=== PATIENT | female | born 1950 | race Caucasian/White ===

== ENCOUNTER 2020-08-13 08:21 | Inpatient (IN) ==
--- OUTSIDE RECORDS SUMMARY | 2020-08-13 08:24 | External Medical Summary | Continuity of Care Document ---
:1950 Author Name Maurilio Chauhan, Provider Address Unavailable Unavailable , Care Team Providers Name Role Phone Jonah [email or web address] [email or web address] [email or web address], [email or web address] Unavailable Unavailable Problems Active medical history not documented Allergies and Adverse Reactions Allergy history not documented Medications Medications not documented Procedures Procedures not documented Immunizations Immunizations not documented Plan of Treatment Planned Observations Planned Goals not documented Results No Known Results Results not documented
[2020-08-13] MEDS ORDERED: MIDAZOLAM HCL 1 MG/ML 2ML VIAL ONE ×3 (08:58→11:40)
[2020-08-13] MEDS ORDERED: fentaNYL citrate 100 MCG/2 ML VIAL ONE (08:58)
[2020-08-13] MEDS ORDERED: HEPARIN (PORCINE) 1000 UNIT/ML 10 ML (CATH LAB USE ONLY) ONE (08:58)
[2020-08-13] MEDS ORDERED: NITROGLYCERIN/D5W 100MCG/ML 20ML SYR ONE (08:58)
[2020-08-13] MEDS ORDERED: niCARdipine HCL INJ 2.5 MG/ML 10 ML AMP ONE (08:58)
--- NOTE | 2020-08-13 09:04 | History & Physical Bridge Note ---
Date of Service August 13, 2020 History & Physical Bridge Note I have examined the patient, reviewed the History & Physical and in the interval since the performance of the History & Physical I have noted the following changes of clinical significance: no changes noted
--- NOTE | 2020-08-13 09:17 | Pre Anesthesia Assessment ---
Date of Service August 13, 2020 Pre Sedation Assessment Vital Signs Temp Pulse Resp BP Pulse Ox 08/13/20 08:30 36.3 C L 58 L 18 186/96 H 98 Cardiovascular RRR, no murmur, no edema Respiratory normal respiratory effort, lungs clear to auscultation Pre-Sedation Airway Assessment Smoking Status: Former smoker Hx Sleep Apnea: No Short, Thick Neck: No Thyromental Distance: > or= 3.5 Finger Breadths Oral Cavity: + WNL Mallampati Class: II ASA: ASA2 NPO Status Date of Last Intake of Fluids: 08/13/20 Time of Last Intake of Fluids: 05:00 Date of Last Intake of Solid Food: 08/12/20 Time of Last Intake of Solid Foods: 22:00 Procedure Planning Contraindications for Sedation: none Current Medications Reviewed: Yes Notes The planned sedation has been discussed with the patient. Informed Consent was obtained. I have identified the patient, determined the appropriateness of sedation and have assessed the patient immediately prior to the procedure. All medicine(s) and interventions are by my order.
--- NOTE | 2020-08-13 10:13 | Post Anesthesia Assessment ---
Date of Service August 13, 2020 Post Sedation Assessment Vital Signs Temp Pulse Resp BP Pulse Ox 08/13/20 08:30 36.3 C L 58 L 18 186/96 H 98 Recovery Score Activity: Moves 4 extremities Respiration: Deep Breath/Cough Circulation: +/-20% PreAnes Value Consciousness: Fully Awake Oxygen Saturation: > 92% On Room Air Discharge Sedation Level of Care: Phase I Post Sedation Plan On clinical assessment, the patient appears to have tolerated the sedation without complications. Patient is recovering as anticipated. Patient will continue to be monitored by nursing and may be discharged when sedation discharge criteria are met per below protocol. Upon Completions of procedure up to 15 minutes continue every 5 minute vital signs and the P.A.R. score; then discharge to a Phase I or Fast Track to Phase II per the following guidelines: * Discharge Patient to appropriate Phase II area if PAR is 8 or greater or return to pre- procedure baseline. The post - procedure orders will be as directed. * If PAR score is less than 8 or not return to pre-procedure baseline then patient will follow Phase I monitoring till PAR is reached for Phase II. The Phase I may be done in procedure room or may call to secure a Phase I area. * If naloxone or flumazenil are used for reversal, hold in Phase I for continued monitoring from when last reversal dose was given for a minimum of 60 minutes or longer pending the nurse and/or physician discretion of patient condition before discharge to Phase II. Please call the Sedation Physician to re-evaluate and complete post-note for discharge to Phase II area. Do NOT discharge from procedure sedation or Phase 1 until post- sedation evaluation note is complete by procedure /sedation MD Sedation Discharge Instructions to be given to the patient at discharge to home.
--- NOTE | 2020-08-13 10:18 | Cardiac Catheterization ---
Cardiac Cath Procedure Full Procedure Date August 13, 2020 Pre-Procedure Diagnosis Pre-Procedure Diagnosis: Angina and Positive Stress Test AUC Score AUC Score: 8 Post-Procedure Diagnosis Post-Procedure Diagnosis: Severe CAD and Elevated Intracardiac Pressures Procedure(s) Performed Procedure(s) Performed: Coronary Angiography and Left Heart Cath Extruder Operator Horizontal Alex Tolentino DO Rescue Worker(s) Elza RN Estimated Blood Loss Estimated Blood Loss: 5cc Medication(s) Medication(s): Fentanyl, Heparin, Lidocaine 1%, Nicardipine, Nitroglycerin and Versed Summary of Findings Severe multivessel CAD: 80% mid LAD (Bifurcation lesion) 90% mid Lcx 80% proximal RCA 70-80% diffuse RPDA Hemodynamics Rest Ao:: 173/83/124 Final Ao: 191/85/129 LV: 193/9/26 Recommendations Recommendations: PCI without planned CABG Specimens Specimens: None Radiation Exposure (mGy) 276 Contrast (mls) 50 Fluids (cc crystalloids) Fluids (cc crystalloids): 100 nss Drains Drains: N/A Anesthesia Moderate sedation. Start 0938. End 1015. Sedation monitor: Ger ALFARO. Procedural Complication(s) None Disposition Patient remained in Hot Stick Worker for PCI I attest to the content of the Intraoperative Record and any orders documented therein. Any exceptions are noted below. ACC Data: Hot Stick Worker Cardiac Status Clinical evaluation leading to the procedure CAD Presenation: Positive Stress Test and Unstable angina Anginal Classification: CCS III Heart Failure: No Stress Echocardiogram: Yes - Positive and Risk/Extent of Ischemia (High) Coronary Anatomy Dominant: Right Left Main (% Stenosis): Normal LAD (% Stenosis): Proximal (30%) and Mid (80% bifurcation lesion) D1 (% Stenosis): Ostial (20%) and Proximal (20%) D2 (% Stenosis): Ostial (80% bifurcation lesion) Circumflex (% Stenosis): Proximal (20%) and Mid (90%) OM1 (% Stenosis): Mid (30%) and Distal (30%) L PL1 (% Stenosis): Mid (10%) RCA (% Stenosis): Proximal (80%), Mid (90%) and Distal (20-30%) R PDA (% Stenosis): Proximal (80%) and Mid (80%) R PL1 (% Stenosis): Mid (10%, small vessel) AM (% Stenosis): Ostial (80%) Ramus (% Stenosis): Proximal (60%) and Mid (60%) Diagnostic Physicians Name: Alex Tolentino DO Status: Elective Closure Device Percutaneous Entry Location: Radial Recommendations: PCI without planned CABG Intraprocedure Events Significant Disection: No Perforation: No
[2020-08-13] MEDS ORDERED: PRASugrel TAB 10 MG TAB PO ONE (11:59)
--- NOTE | 2020-08-13 12:30 | Post Anesthesia Assessment ---
Date of Service August 13, 2020 Post Sedation Assessment Vital Signs Temp Pulse Resp BP Pulse Ox 08/13/20 12:20 58 L 18 153/88 H 96 08/13/20 12:05 60 18 154/95 H 96 08/13/20 08:30 97.3 F L 58 L 18 186/96 H 98 Recovery Score Activity: Moves 4 extremities Respiration: Deep Breath/Cough Circulation: +/-20% PreAnes Value Consciousness: Fully Awake Oxygen Saturation: > 92% On Room Air Post Anesthesia Score: 10 Discharge Sedation Level of Care: Fast Track Phase II Post Sedation Plan On clinical assessment, the patient appears to have tolerated the sedation without complications. Patient is recovering as anticipated. Patient will continue to be monitored by nursing and may be discharged when sedation discharge criteria are met per below protocol. Upon Completions of procedure up to 15 minutes continue every 5 minute vital signs and the P.A.R. score; then discharge to a Phase I or Fast Track to Phase II per the following guidelines: * Discharge Patient to appropriate Phase II area if PAR is 8 or greater or return to pre- procedure baseline. The post - procedure orders will be as directed. * If PAR score is less than 8 or not return to pre-procedure baseline then patient will follow Phase I monitoring till PAR is reached for Phase II. The Phase I may be done in procedure room or may call to secure a Phase I area. * If naloxone or flumazenil are used for reversal, hold in Phase I for continued monitoring from when last reversal dose was given for a minimum of 60 minutes or longer pending the nurse and/or physician discretion of patient condition before discharge to Phase II. Please call the Sedation Physician to re-evaluate and complete post-note for discharge to Phase II area. Do NOT discharge from procedure sedation or Phase 1 until post- sedation evaluation note is complete by procedure /sedation MD Sedation Discharge Instructions to be given to the patient at discharge to home.
[2020-08-13] MEDS ORDERED: ACETAMINOPHEN 325 MG TAB PO PRN (12:43)
[2020-08-13] MEDS ORDERED: NITROGLYCERIN SL 0.4 MG/TAB TAB SL PRN (12:43)
[2020-08-13] MEDS ORDERED: MoRPHine SULFATE 2 MG/ML CARP IV PRN (12:43)
--- NOTE | 2020-08-13 12:43 | Cardiac Catheterization ---
[facility] Data: Contract Specialist Cardiac Status Clinical evaluation leading to the procedure CAD Presenation: Non STEMI Anginal Classification: CCS III Heart Failure: No Cardiogenic Shock within 24 Hours: No Cardiac Arrest within 24 Hours: No Imaging Studies Past 6 Months: Yes Stress Studies Past 6 Months: No Diagnostic Physicians Name: Zac Ramos MD Status: Elective Closure Device Percutaneous Entry Location: Radial Closure Device: Radial Band Recommendations: PCI without planned CABG PCI Indication: + Stress Test and Angina despite med therapy Lesion Segment Name: mid RCA Culprit Artery: Yes Stenosis Prior to Rx (%): 90 Chronic Total Occlusion: No IVUS: Yes FFR: No Pre-Procedure ANAMIKA Flow: 3 Previously Treated Lesion: No Lesion Complexity: Non-High/Non-C Lesion Length (mm): 40 Thrombus Present: No Bifurcation Lesion: No Guidewire Across Lesion: Stenosis Post-Procedure (%): 0 Post-Procedure ANAMIKA Flow: 3 Devices(s) Deployed: Yes Yes Intraprocedure Events Significant Disection: Yes (mid RCA -- stented) Perforation: No Cardiac Cath Procedure Full Procedure Date August 13, 2020 Pre-Procedure Diagnosis Pre-Procedure Diagnosis: Angina and Positive Stress Test AUC Score AUC Score: 7 Post-Procedure Diagnosis Post-Procedure Diagnosis: Severe CAD and Successful PCI Procedure(s) Performed Procedure(s) Performed: Coronary Angiography, Drug Eluting Stent and IVUS Cleaning And Maintenance Worker Zac Ramos MD Inspector Assembly(s) Elza ALFARO Estimated Blood Loss Estimated Blood Loss: 20 Medication(s) Medication(s): Fentanyl, Heparin, Lidocaine 1%, Nicardipine, Nitroglycerin and Versed Medication(s): prasugrel Summary of Findings Indication: Angina, abnormal stress test Access: 6 Fr right radial artery Catheters: JR4 (5 Fr) guide Findings: For full details of patient's coronary angiography please see cath report dictated by Dr. Tolentino. Briefly, patient found to have multi-vessel disease: 80% mid LAD (Bifurcation lesion) 90% mid Lcx 80% proximal RCA 70-80% diffuse RPDA Decision to proceed with PCI of RCA today. Likely staged PCI of LAD, circumflex later date. -- PCI -- Antithrombotic therapy: Heparin, prasugrel Procedure: RCA cannulated with 5 Fr JR4 guide Patent Drafter 50 wire passed across lesion into distal vessel Mid RCA lesion predilated with 2.0 compliant balloon Dilated lesion stented with 2.5 x 30 mm Nitin drug-eluting stent Right PDA lesion dilated with 2.0 balloon PDA stented with 2.25 x 15 mm [place] extending back into distal RCA across takeoff with right PLB Post stent deployment noted to have flow-limiting dissection in mid RCA downstream from initial stent Initial stent, mid RCA dilated with 2.5 and 2.75 NC balloons Additional stent (2.25 x 30 mm Nitin) placed to mid RCA overlapping with distal aspect of initial stent IVUS used to assess stents, proximal RCA. Pullback revealed well apposed, mildly underexpanded stents in mid RCA with minimal proximal RCA disease. Mid RCA stents post-dilated again with 2.75 noncompliant balloon Ostium of right PLB pinched with sluggish flow. PLB wired through stent struts with new pilot control operator 50. Ostium/proximal right PLB dilated through stent struts with 1.5 and 2.0 balloon IC vasodilators administered for spasm Post dilation right PLB expanded but with residual dissection and ANAMIKA II flow RCA into PDA with ANAMIKA-3 flow, stents well expanded. Arterial Closure: TR band Summary: 1. Severe multivessel coronary artery disease 2. Successful PCI of mid RCA with 2 overlapping drug-eluting stents (2.5 x 38, 2.25 x 30 Nitin; postdilated with 2.75 NC). 3. Successful PCI of proximal right PDA with 2.25 x 15 mm Nitin WEI. PTCA to jailed right PLB ostium through stent struts with 2.0 balloon Recommendations: To PCU for continued monitoring Loaded with prasugrel 60 mg in Contract Specialist Continue dual-antiplatelet therapy for at least 1 year Continue statin, and ASCVD risk factor modification Consult cardiac Rehab Plan for staged PCI of LAD, circumflex at a later date. Hemodynamics Rest Ao:: 196/89/131 Final Ao: 160/78/115 LV: -- Recommendations Recommendations: PCI without planned CABG Specimens Specimens: None Radiation Exposure (mGy) 1800 Contrast (mls) 170 Fluids (cc crystalloids) Fluids (cc crystalloids): 350 Drains Drains: none Anesthesia moderate Procedural Complication(s) None Disposition PCU I attest to the content of the Intraoperative Record and any orders documented therein. Any exceptions are noted below. Instacart Card Cath Procedure Codes Therapeutic Services & Ancillary Proc Procedure 1: Cardiovascular Tx and Anc Procedures: 77218 IV Ultrasound (Coronary or Graft) Moderate Sedation Procedure 1: Sedation/Anesthesia: 35218 Mod Sedation by the same physician; Ea [id number] Minutes Stenting Procedure 1: Cardiovascular Stent Procedures: 23502 Perc transcatheter placement of intracoronary stent(s), with ang PG Care Time/CCT Total # of Minutes Spent Total Time Spent with Patient: Total time spent is greater than 50% in coordination of care (as documented) at patient's floor/unit and/or counseling patient:
[2020-08-13] MEDS ORDERED: SODIUM CHLORIDE 0.9% 1000ML 1,000 ML IV SCH (12:45)
[2020-08-13] MEDS ORDERED: LORazepam 0.5 MG TAB PO PRN (12:51)
[2020-08-13] MEDS ORDERED: INFLUENZA VIRUS QUAD VACCINE 0.5 ML SYR IM ONE (14:00)
[2020-08-13] MEDS ORDERED: INFLUENZA ADMINISTRATION CHARGE ONE (14:00)
[2020-08-13] MEDS ORDERED: Nursing to Pharmacy Communication SCH ×2 (14:30→15:00)
[2020-08-13] MEDS ORDERED: hydroCHLOROthiazide 25 MG TAB PO ONE (14:45)
[2020-08-13] MEDS ORDERED: amLODIPine BESYLATE 5 MG TAB PO ONE (15:00)
[2020-08-13] MEDS ORDERED: NITROGLYCERIN 2% OINTMENT 30GM TUBE EXT SCH (15:00)
[2020-08-13] MEDS ORDERED: MoRPHine SULFATE 2 MG/ML CARP IV STA (15:40)
--- NOTE | 2020-08-13 15:45 | Communication Note ---
Date of Service: August 13, 2020 Patient assessed in coverage of Dr Tolentino. Pt describes headache, BP elevated to 208/101 at 14:29. Thus far has received 0.5 mg of ativan (on at home) , amlodipine 2.5 mg x 1, and nitropaste. She took her home BP medication this am prior to leaving for hospital. She described pain in her neck from her posture / uncomfortable bed. At time of my assessment BP =180/ 102. Awake and oriented. Radial artery site stable. Plan: Given headache prior to treatment with nitropaste, concerned this will make symptoms worse and will therefore stop this. Will administer morphine 1 mg IV x 1 dose.
[2020-08-13] MEDS: ONDANSETRON INJ 2 MG/ML 2 ML VIAL IV PRN ×2 (15:52→19:58)
[2020-08-13] MEDS ORDERED: STAT IV Infusion **Titration per Protocol STA ×2 (16:16→16:49)
--- NOTE | 2020-08-13 16:26 | Cardiology Progress Note ---
Date of Service August 13, 2020 Assessment & Plan (1) Hypertensive urgency: BPs remain high 197/109 after morphine and Zofran. Heart rate is 58, SB limiting use of clonidine, and beta blockers. Hydralazine not ideal given CAD. Will transfer to first floor ICU and start nicardipine infusion. Updated Dr Tolentino who is station repairer for [facility]. Updated Dr Chatman of Pathology Secretary/Transcriptionist service. (2) S/P right coronary artery (RCA) stent placement: Admission and Anticipated Discharge Date Admission Date: August 13, 2020 Subjective Patient remains hypertensive. Has ongoing headache despite removing nitropaste. Now with reported mild visual change. Physical Exam Physical Exam: Temp Pulse Resp BP Pulse Ox 36.6 C 57 L 16 197/109 H 197 H 08/13/20 15:32 08/13/20 16:07 08/13/20 16:07 08/13/20 16:07 08/13/20 16:07 Constitutional: ill in appearance, alert Respiratory: normal respiratory effort, lungs clear to auscultation Cardiovascular: RRR, no murmur, no edema Gastrointestinal (Abdomen): normal bowel sounds, soft, nontender, no hepatosplenomegaly Neurologic: no focal deficits, fluent speech Results & Data ([facility]) Vital Signs (Past 12 Hours) Vital Signs Temp Pulse Pulse Resp BP Pulse Ox 08/13/20 16:07 57 L 16 197/109 H 197 H 08/13/20 15:59 60 14 204/113 H 98 08/13/20 15:32 36.6 C 59 L 18 180/102 H 98 08/13/20 15:02 56 L 08/13/20 14:58 36.9 C 56 L 18 173/104 H 100 08/13/20 14:29 37 C 55 L 18 208/101 H 100 08/13/20 14:10 36.6 C 56 L 18 203/119 H 99 08/13/20 13:28 36.9 C 58 L 18 187/98 H 99 08/13/20 13:13 36.6 C 60 18 186/96 H 99 08/13/20 12:59 36.5 C 49 L 18 204/106 H 100 08/13/20 12:45 36.5 C 51 L 18 173/96 H 97 08/13/20 12:30 36.5 C 52 L 48 L 18 160/97 H 94 08/13/20 12:20 58 L 18 153/88 H 96 08/13/20 12:05 60 18 154/95 H 96 08/13/20 08:30 36.3 C L 58 L 18 186/96 H 98
[2020-08-13] MEDS ORDERED: niCARdipine 25 MG in SODIUM CHLORIDE 0.9% 240 ML IV SCH (17:00)
[2020-08-13] MEDS: niCARdipine 25 MG in SODIUM CHLORIDE 0.9% 240 ML IV SCH (17:49)
--- NOTE | 2020-08-13 17:53 | Critical Care Consultation ---
Date of Consultation August 13, 2020 Assessment & Plan (1) Hypertensive emergency: EKG 08/13/2020: Mild ST elevation appreciated in leads II, III and aVF, ST depression with T wave inversions in the anterolateral leads especially V3-V4 Chest x-ray 08/13/2020: Portable film, good inspiratory effort, bilateral costophrenic and cardiophrenic ulcer clean, no clinically appreciated. --Hypertensive emergency Patient with systolic blood pressure greater than 220 on the floor with headache and blurry vision She did get all the blood pressure medication Decrease MAP by 25% in the next 24 hours, goal systolic blood pressure will be 160 in the next 24 hours. Nicardipine drip if need be to keep the systolic blood pressure around 160. The patient gets hypotensive give bolus fluid. --Coronary artery disease, multivessel Monitor troponin Serial EKGs Cardiology on board Continue with aspirin, prasugrel, ARB and statin --History of anxiety --Prophylaxis VTE: IPC's GI: Protonix Lines: Peripheral Diet: Cardiac Plan: Monitor blood pressure. CT of the head is negative for any acute stroke. Trend troponins and EKG I have personally spent 41 minutes of critical care time in the direct management of this patient. This is a life/limb threatening event. This includes time spent evaluating patient, direct bedside care, chart review, placing orders, interpretation of diagnostic studies, discussion with consultants, patient, and family members, as well as other required patient management activities. This time is exclusive of all separately billable procedures, and teaching time and separate from and in addition to any other critical care service time. Please note the above document was generated using voice recognition software. It may contain grammatical, syntax or spelling errors. (2) S/P right coronary artery (RCA) stent placement: History of Present Illness Attending Physician: Alex Tolentino DO History of Present Illness 69-year-old female past medical history of hypertension, anxiety, dyslipidemia came to [facility] for same-day cardiac cath found to have significant multivessel disease RCA was stented today. Plan was to have stepwise stenting of LAD later on. On the floor patient was found to have blood pressure in the 220s complaining of headache nausea and vomiting. Patient did get blood pressure medications on the floor with her blood pressures continue to stay high. Patient was sent to ICU to start nicardipine drip. At the time of examination patient blood pressure was 140s. She was a started on nicardipine drip. While I was taking history from the patient her blood pressure went to 126 systolic. I asked him to stop the nicardipine drip. Patient is complaining of retrosternal chest pain which is pleuritic in nature. Denies any significant shortness of breath. Does complain of nausea. She vomited once nonbilious nonbloody. Denies any dizziness, headache has improved compared to when she was on the floor. Still complains of mild blurry vision. Social history: Used to smoke cigarettes currently smoking cigars. Allergies Allergy/AdvReac Type Severity Reaction Status Date / Time No Known Allergies Allergy Unverified 03/14/18 18:08 Home Medications Medication Instructions Recorded Confirmed Type Hctz/Losartan (Hyzaar 12.5MG/50MG) 1 tab PO DAILY #0 tab 03/14/18 08/13/20 History Lorazepam 0.5 mg PO DAILY #0 03/14/18 08/13/20 History Metoprolol Succinate (Metoprolol 100 mg PO DAILY #0 03/14/18 08/13/20 History Succinate ER) citalopram [Celexa] 20 mg PO DAILY 08/13/20 08/13/20 History rosuvastatin [Crestor] 20 mg PO DAILY 08/13/20 08/13/20 History Patient History Social History Smoking Status: Former smoker Hx Alcohol Use: Yes Hx Substance Use: Yes Preferred Language: German Current Living Situation: Family Feels Safe at Home: Yes Safety Concerns: Feels Safe At This Time Assistive Devices: None Review of Systems Review of Systems: All systems reviewed & are unremarkable except as noted in HPI & below Physical Exam Physical Exam: Constitutional: No acute distress HEENT: EOMI, PERRLA Respiratory system: Decreased air entry bilaterally, mild crackles bilateral lower lobes, no wheeze, no rhonchi CVS: S1-S2 positive, no murmurs or gallops Abdomen: Soft, nontender, nondistended, positive bowel sounds x4 Extremities: +2 pulses bilaterally radialis/ dorsalis pedis, no cyanosis, no edema Neuro: Awake alert oriented x3 Psych: Normal mood and affect G/U: No Bell Skin: no rashes, warm and dry Lymphatic: no cervical or axillary lymphadenopathy Results & Data Results & Data ([facility]) Vital Signs (Past 12 Hours) Vital Signs Temp Pulse Pulse Resp BP Pulse Ox 08/13/20 16:35 36.6 C 55 L 16 185/109 H 98 08/13/20 16:07 57 L 16 197/109 H 197 H 08/13/20 15:59 60 14 204/113 H 98 08/13/20 15:32 36.6 C 59 L 18 180/102 H 98 08/13/20 15:02 56 L 08/13/20 14:58 36.9 C 56 L 18 173/104 H 100 08/13/20 14:29 37 C 55 L 18 208/101 H 100 08/13/20 14:10 36.6 C 56 L 18 203/119 H 99 08/13/20 13:28 36.9 C 58 L 18 187/98 H 99 08/13/20 13:13 36.6 C 60 18 186/96 H 99 08/13/20 12:59 36.5 C 49 L 18 204/106 H 100 08/13/20 12:45 36.5 C 51 L 18 173/96 H 97 08/13/20 12:30 36.5 C 52 L 48 L 18 160/97 H 94 08/13/20 12:20 58 L 18 153/88 H 96 08/13/20 12:05 60 18 154/95 H 96 08/13/20 08:30 36.3 C L 58 L 18 186/96 H 98 08/13/20 19:24 Coding Level of Care Code Critical Care 1st 30-74 mins Diagnoses Hypertensive emergency I16.1 S/P right coronary artery (RCA) stent placement Z95.5 Time Spent (min) 41
--- NOTE | 2020-08-13 18:16 | Communication Note ---
Date of Service: August 13, 2020 Patient reassessed in ICU room 108. BP now 129/78. Comfortable. Headache and nausea resolved. Nicardipine held. Complaints of midline chest pain , mild radiating to back that she says has been present since labor relations manager. She did not report this to me earlier. EKG performed on arrival to ICU reveals SB with diffuse T wave inversions in inferior leads and leads V3-V6, overall EKG is similar compared to 08/05/20 with exception of mild J point elevation in lead III. Symptoms and EKG changes likely explained by pinched R PLB branch described on PCI report today. I believe if her RCA stents were down , she would have more severe EKG changes and more severe symptoms. Will check troponin now and in am. Check CT of brain given headache and transient visual changes. Stable to travel to [place] now that BP improved. Holding off on nitrates given prior headache.
--- NOTE | 2020-08-13 18:38 | CT Scan Report ---
CT SCAN OF THE BRAIN WITHOUT IV CONTRAST CLINICAL HISTORY: Headache. Hypertension. Status post cardiac catheterization. COMPARISON STUDY: No priors. TECHNIQUE: Unenhanced axial CT scan of the brain is performed from the vertex to the skull base. A do se lowering technique was utilized adhering to the principles of ALARA. CT DOSE: 537.48 mGy.cm FINDINGS: Brain parenchyma: There are age-related involutional changes noting mild subcortical and periventric ular microangiopathic change. There is no hemorrhage, mass effect, or evidence of acute territorial i schemia by CT criteria. Tam-white matter differentiation is preserved. No extra-axial fluid collecti on is seen. Ventricles, sulci, cisterns: Prominent secondary to involutional change. Intracranial vasculature: There is atherosclerotic calcification of the cavernous carotid and vertebr al arteries. Calvarium: Unremarkable. Sinuses and mastoids: A 3.5 cm retention cyst is noted in the right maxillary antrum. Air-fluid level s seen in the left maxillary antrum. Moderate mucosal thickening is seen within the ethmoid sinuses, left greater than right. Mild mucosal thickening is noted in the frontal and sphenoid sinuses. The ma stoid air cells are well pneumatized. Orbits: The bony orbits are grossly intact. There are bilateral ocular lens implants. IMPRESSION: 1. There is no hemorrhage, mass effect, or evidence of acute territorial ischemia by CT criteria. 2. Pansinus disease as above. ACT 112: Negative or not required by law. Electronically signed by: Avtar Negron M.D. 08/13/2020 6:37 PM
--- NOTE | 2020-08-13 18:53 | Communication Note ---
Date of Service: August 13, 2020 CT of brain without acute abnormality, sinus disease noted.
[2020-08-13 19:42] LABS: Basophils # (auto) 0.03 K/uL (0-0.2); Basophils % (auto) 0.2 %; Eosinophils # (auto) 0.08 K/uL (0-0.5); Eosinophils % (auto) 0.5 %; Hematocrit (blood only) 41.3 % (37-47); Hemoglobin 14.4 g/dL (12.0-16.0); Immature Granulocytes # (auto) 0.02 K/uL (0.00-0.02); Immature Granulocytes % (auto) 0.1 %; Lymphocytes # (auto) 1.89 K/uL (1.2-3.4); Lymphocytes % (auto) 10.9 %; Mean Corpuscular Hemoglobin 34.2 pg (25-34); Mean Corpuscular Hgb Conc 34.9 g/dL (32-36); Mean Corpuscular Volume 98.1 fL (80-100); Mean Platelet Volume 11.5 fL (7.4-10.4); Monocytes # (auto) 0.67 K/uL (0.11-0.59); Monocytes % (auto) 3.9 %; Neutrophils # (auto) 14.61 K/uL (1.4-6.5); Neutrophils % (auto) 84.4 %; Platelet Count 194 K/uL (130-400); RDW Coefficient of Variation 12.7 % (11.5-14.5); RDW Standard Deviation 45.1 fL (36.4-46.3); Red Blood Count 4.21 M/uL (4.2-5.4)
--- NOTE | 2020-08-13 19:45 | Communication Note ---
Date of Service: August 13, 2020 SBPs currently in the 90s. Troponin 1.5 ng/ml , which is not surprising given catheterization / PCI results with jailed PLB branch. Will repeat troponin with am lab , already ordered. Discussed with nursing, will continue to observe. Critical care input appreciated.
[2020-08-13] MEDS ORDERED: ONDANSETRON INJ 2 MG/ML 2 ML VIAL IV STA (19:53)
--- NOTE | 2020-08-13 19:55 | XRay Report ---
SINGLE VIEW CHEST CLINICAL HISTORY: Headache. Hypertension. Recent cardiac catheterization. FINDINGS: An AP, portable, upright chest radiograph is obtained. No prior studies are available for c omparison at the time of dictation. The heart is enlarged noting atherosclerotic calcification of th e thoracic aorta. The pulmonary vasculature is noncongested. The lungs and pleural spaces are clear. No pneumothorax is seen. The skeletal structures are osteopenic. The bony thorax is grossly intact. IMPRESSION: Cardiomegaly with no acute cardiopulmonary abnormality. ACT 112: Negative or not required by law. Electronically signed by: Avtar Negron M.D. 08/13/2020 7:53 PM
[2020-08-13 19:56] LABS: INR 1.1 (0.9-1.1); Prothrombin Time 11.8 Seconds (9.0-12.0)
[2020-08-13 20:01] LABS: Albumin Level 3.4 gm/dl (3.4-5.0); BUN Creatinine Ratio 18.1 (10-20); Bilirubin Direct 0.3 mg/dl (0-0.2); Calcium 8.4 mg/dl (8.5-10.1); Creatinine Clr Calc Pharmacy 40.2 ml/min; Est GFR (African American) 66.2; Est GFR (Non-African American) 57.2; Potassium 4.1 mmol/L (3.5-5.1)
[2020-08-13 20:10] LABS: Bilirubin,Total 0.6 mg/dl (0.2-1); Thyroid Stimulating Hormone 2.65 uIu/ml (0.300-4.500); Total Protein 6.7 gm/dl (6.4-8.2)
[2020-08-13] MEDS ORDERED: HEPARIN SODIUM/DEXTROSE 25,000 UNITS/500 ML BAG IV SCH (21:15)
--- NOTE | 2020-08-13 21:16 | Communication Note ---
Date of Service: August 13, 2020 Cased discussed with nursing over the phone. SBP 95, patient with nausea. Repeat EKG from 20:[address] is [address] improved [address] segments in the inferior leads compared to 17:39. Case discussed with Dr Ramos of interventional cardiology by phone. Jailed right PLB (posterolateral branch) and complex PCI could explain symptoms or patient may have occlusion of the small right posterior descending artery branch (PDA). If patient had acute thrombosis of the proximal or mid RCA stents would expect more significant EKG changes. We discussed proceeding with emergent cardiac catheterization or observation. At present, we have elected for ongoing observation. Add UF heparin. Discussed with patient's nurse. Dr Tolentino fabrication mig welder this evening. Will update him.
[2020-08-13] MEDS ORDERED: Heparin IV Standard *NO* Bolus IV SCH (21:30)
[2020-08-14] MEDS: niCARdipine 25 MG in SODIUM CHLORIDE 0.9% 240 ML IV SCH (01:14)
[2020-08-14 04:38] LABS: Basophils # (auto) 0.01 K/uL (0-0.2); Basophils % (auto) 0.1 %; Eosinophils # (auto) 0.01 K/uL (0-0.5); Eosinophils % (auto) 0.1 %; Hematocrit (blood only) 40.2 % (37-47); Hemoglobin 13.9 g/dL (12.0-16.0); Immature Granulocytes # (auto) 0.02 K/uL (0.00-0.02); Immature Granulocytes % (auto) 0.2 %; Lymphocytes % (auto) 10.6 %; Mean Corpuscular Hemoglobin 33.3 pg (25-34); Mean Corpuscular Hgb Conc 34.6 g/dL (32-36); Mean Corpuscular Volume 96.2 fL (80-100); Mean Platelet Volume 11.5 fL (7.4-10.4); Monocytes # (auto) 0.76 K/uL (0.11-0.59); Monocytes % (auto) 6.2 %; Neutrophils # (auto) 10.17 K/uL (1.4-6.5); Neutrophils % (auto) 82.8 %; Platelet Count 184 K/uL (130-400); RDW Coefficient of Variation 12.8 % (11.5-14.5); RDW Standard Deviation 44.9 fL (36.4-46.3); Red Blood Count 4.18 M/uL (4.2-5.4); White Blood Count 12.27 K/uL (4.8-10.8)
[2020-08-14 04:57] LABS: BUN Creatinine Ratio 20.1 (10-20); Calcium 8.2 mg/dl (8.5-10.1); Est GFR (African American) 57.8; Est GFR (Non-African American) 49.9; Magnesium 1.8 mg/dl (1.8-2.4); Partial Thromboplastin Ratio 3.3; Potassium 4.4 mmol/L (3.5-5.1)
[2020-08-14 05:11] LABS: Partial Thromboplastin Time 92.5 Seconds (21.0-31.0)
[2020-08-14 05:19] LABS: Troponin I 44.3 ng/ml (0-0.045)
[2020-08-14] MEDS: MAGNESIUM SULFATE / D5W 1 GM/100 ML BAG IV SCH ×2 (06:11→08:19)
[2020-08-14] MEDS ORDERED: SODIUM CHLORIDE 0.9% 1000ML 500 ML IV ONE (07:20)
--- NOTE | 2020-08-14 07:57 | Critical Care Progress Note ---
Date of Service August 14, 2020 Assessment & Plan (1) S/P right coronary artery (RCA) stent placement: Reason Critically Ill: 69 yo F PMHx HTN, HLD, anxiety, depression, unstable angina presented to hospital for catheterization following positive stress test outpatient. Was admitted to ICU for nifedipine gtt for hypertensive emergency. Neuro - Headache/Blurry Vision: - Experienced yesterday when BP >220, how resolved with normotension. - CT Head performed showing no hemorrhage, mass effect, or evidence of CVA. Depression/Anxiety: - Continue home sertraline daily, Ativan prn. Cardiac - Severe multivessel CAD: - Stress test on 08/11 showed inferior hypokinesis during stress suggestive of RCA distribution ischemia. - Yesterday had successful PCI of proximal and mid-RCA with WEI. - For staged PCI of LAD and LCx later this admission. - EKG 08/13/2020: Mild ST elevation appreciated in leads II, III and aVF, ST depression with T wave inversions in the anterolateral leads especially V3-V4. - Today with resolution of ST changes and T wave inversions in anterior leads. - Troponin trended up from 1.55 to 44.3 this AM but with decreased chest pain this AM. - Suspect elevated due to stent placement. Repeat troponin at noon. - Echo performed this AM, pending. - BP management outlined below. - DAPT for at least one year following PCI. - May benefit from increase in statin dosing. Have ordered lipid panel with noon lab draw. Hypertensive emergency: - History of HTN, at home on HCTZ/Losartan 12.5/50, Toprol XL 100 daily. - Post-catheterization yesterday with elevated BP to 220 systolic despite receiving several antihypertensives. - Transferred to ICU for nifedipine gtt, patient's BP decreased significantly by time of arrival to ICU to hypotension. - Nifedipine gtt never started, received 1L NSS bolus and BP has been normotensive overnight. - In hospital, continue HCTZ 25 daily, losartan 100mg daily, home dose Toprol XL. - May need tighter BP control in outpatient setting. Have also encouraged to quit smoking. Respiratory - - Patient without history of lung disease, however with extensive smoking history. - Encouraged smoking cessation especially in light of her severe multivessel CAD. GI - - NPO for pending catheterization. - Pantoprazole IV for GI ppx. RENAL/LYTES - - Mild hyponatremia and hypomagnesemia. - 500mL NSS bolus, Mg Sulfate 1g IV x1 given. - Mild elevation in creatinine from 1.0 -> 1.13; suspect due to contrast, light fluid bolus as above. - - No present concerns. ENDO - - No history of thyroid disease of DM2. - Hgb A1c ordered to be collected with noon lab draw. HEME - - Stable H&H. - Will monitor for any drops in the setting of Heparin gtt. ID - - No concerns for infection at this point. - Monitor fever curve. INTEGUMENTARY - - Catheterization site clean, dry, no hematoma. LINES/IV ACCESS - - PIVs intact. DVT PROPHYLAXIS - - Heparin gtt. Thank you for allowing us to be part of this patient's care. Suspect downgrade from ICU level of care later today. Please refer to Dr. Cahtman's documentation for any further recommendations. (2) Hypertensive emergency: (3) Anxiety: (4) Depression: Admission and Anticipated Discharge Date Admission Date: August 13, 2020 Supervising Physician Co-Signing Physician Notes Dr. Patel was the resident-physician during care of patient. I separately evaluated patient for leblanc portions of the history and the exam. I was present during the critical portion of medical decision making, and I discussed the case with the resident. I generally agree with the findings and plan except for any additions/exceptions noted. Patient seen and examined at bedside. No acute distress, no adverse events overnight. Patient states that she is feeling much better compared to yesterday when she came to the ICU. She did not need nicardipine drip at all overnight. She got couple doses of Zofran. She was started on heparin drip overnight by Dr. Ramos. Patient denies any chest pain today. No shortness of breath. No nausea at the time of examination. Urinating well. Blood pressure is fairly controlled. We will continue with home blood pressure medication. Discontinue nicardipine drip. Patient is found to have cardiac cath today again. EKG from today shows resolvent of the ST depression which she had on the lateral leads as well as mild ST elevation which she had on the 2 3 and aVF. Please note the above document was generated using voice recognition software. It may contain grammatical, syntax or spelling errors.Any formal questions or concerns about the content, text or information contained within the body of this dictation should be directly addressed to the provider for clarification. Subjective Patient without acute events overnight. BP has been normotensive, and patient has been without headache, dizziness, visual changes, shortness of breath, abdominal pain. Endorses that her chest feels "sore", but significantly improved from yesterday. No radiation of pain down the arm or up the jaw. Review of Systems Review of Systems: All systems reviewed & are unremarkable except as noted in HPI & below Constitutional: no fever, no chills and no malaise Respiratory: no cough and no dyspnea Cardiovascular: + chest pain (described as "soreness"); no palpitations and no edema Gastrointestinal: no abdominal pain, no constipation and no diarrhea/loose stools Genitourinary: no dysuria and no hematuria Physical Exam Physical Exam: Constitutional: No acute distress HEENT: EOMI, PERRLA Respiratory system: Decreased air entry bilaterally, mild crackles bilateral lower lobes, no wheeze, no rhonchi CVS: S1-S2 positive, no murmurs or gallops Abdomen: Soft, nontender, nondistended, positive bowel sounds x4 Extremities: +2 pulses bilaterally radialis/ dorsalis pedis, no cyanosis, no edema Neuro: Awake alert oriented x3 Psych: Normal mood and affect G/U: No Bell Skin: no rashes, warm and dry Lymphatic: no cervical or axillary lymphadenopathy Results & Data Results & Data ([facility]) Vital Signs (Past 12 Hours) Vital Signs Temp Pulse Resp BP Pulse Ox 08/14/20 06:04 59 L 22 136/84 98 08/14/20 06:00 58 L 20 97 08/14/20 05:36 60 17 97 08/14/20 05:05 60 22 98 08/14/20 05:04 58 L 6 L 116/74 99 08/14/20 05:00 59 L 17 97 08/14/20 04:34 61 22 106/65 98 08/14/20 04:04 65 17 97 08/14/20 04:00 36.4 C L 64 20 98 08/14/20 03:37 61 15 123/79 97 08/14/20 03:34 61 18 133/55 L 98 08/14/20 03:04 63 22 123/71 96 08/14/20 03:00 61 18 97 08/14/20 02:34 62 17 131/83 98 08/14/20 02:04 61 21 153/91 H 97 20 02:00 61 21 96 20 01:34 62 15 124/70 98 08/14/20 01:04 63 19 106/72 97 20 01:00 63 20 96 08/14/20 00:34 62 20 129/91 96 08/14/20 00:04 62 21 126/95 98 08/14/20 00:00 61 21 97 20 23:28 63 18 156/93 H 98 20 23:23 64 16 146/90 H 96 20 23:18 62 22 153/95 H 97 08/13/20 23:13 63 17 141/86 H 96 08/13/20 23:08 62 18 147/89 H 98 08/13/20 23:03 36.7 C 61 18 136/90 99 20 23:00 62 21 97 20 21:38 62 19 93/60 L 99 20 21:33 65 23 92/58 L 98 20 21:30 63 19 98 08/13/20 21:28 63 19 113/70 99 18/20 21:23 62 22 102/71 100 18/20 21:20 63 23 100 18/20 21:18 65 17 113/69 99 08/13/20 21:13 77 23 95 08/13/20 21:10 64 21 98 08/13/20 21:08 63 14 106/69 100 20 21:03 64 19 95/68 L 100 18/20 21:00 62 22 100 18/20 20:58 63 17 114/72 100 18/20 20:53 72 23 103/61 99 18/20 20:50 67 25 H 100 18/20 20:48 64 22 159/99 H 100 18/20 20:43 66 24 143/89 H 99 18/20 20:40 68 22 99 18/20 20:38 71 13 127/87 100 18/20 20:33 73 29 H 105/67 100 18/20 20:30 61 29 H 100 18/20 20:28 62 17 118/73 100 11/18/20 20:23 61 23 116/58 L 100 08/13/20 20:20 62 23 08/13/20 20:19 60 19 99 08/13/20 20:13 71 18 119/75 95 08/13/20 20:10 67 21 99 08/13/20 20:08 65 15 110/76 08/13/20 20:03 64 17 108/69 99 08/13/20 20:00 64 29 H 99 08/13/20 19:57 62 21 113/67 100 08/13/20 19:52 63 21 105/71 100 08/13/20 19:50 60 25 H 100 08/14/20 04:08 08/14/20 04:08 Resident Activity Tracking Resident Involvement: Resident Care Provided Care Provided: Adult Hospital Medicine (1) Depression Depression Type: unspecified Qualified Code(s): F32.9 - Major depressive disorder, single episode, unspecified
[2020-08-14] MEDS: LOSARTAN POTASSIUM 50 MG TAB PO SCH (08:19)
[2020-08-14] MEDS: ROSUVASTATIN CALCIUM 20 MG TAB PO SCH (08:20)
[2020-08-14] MEDS: CITALOPRAM 20 MG TAB PO SCH (08:20)
[2020-08-14] MEDS: ASPIRIN 81 MG ECTAB PO SCH (08:20)
[2020-08-14] MEDS: PRASugrel TAB 10 MG TAB PO SCH (08:21)
[2020-08-14] MEDS ORDERED: LOSARTAN POTASSIUM 50 MG TAB PO SCH (09:00)
[2020-08-14] MEDS ORDERED: hydroCHLOROthiazide 25 MG TAB PO SCH ×2 (09:00)
[2020-08-14] MEDS ORDERED: METOPROLOL SUCC 50MG EXT REL TAB PO SCH (09:00)
--- NOTE | 2020-08-14 10:21 | Cardiology Progress Note ---
Date of Service August 14, 2020 Assessment & Plan (1) Multi-vessel coronary artery stenosis: (2) Acute myocardial infarction: (3) S/P right coronary artery (RCA) stent placement: (4) Hypertension: Discussion/plan: EKG performed this morning 08/14/2020 revealed normal sinus rhythm at 62 bpm with T wave inversions in the inferior lateral leads. ST segment depression noted in the inferior and lateral leads on serial EKGs including her preprocedure baseline dating back to 08/05/2020 is improved. Troponin was 1.5 yesterday at 1855, and has risen to 44.3 NG per mL as of this morning at 4:08 AM. The patient had recent outpatient complaints of exertional angina, recent outpatient stress test was abnormal with exercise-induced inferior wall motion abnormality. She was referred for outpatient diagnostic cardiac catheterization performed yesterday 08/13/2020 which revealed multivessel disease including severe disease in the right coronary artery, LAD, and circumflex coronary artery. Options including coronary artery bypass grafting and multivessel PCI were considered, however given the small diameter of the distal right coronary artery/RPDA branch, it was felt that this would not be amenable to surgical revascularization, and decision was made to proceed with complex PCI of the right coronary artery with planned return for staged PCI of the remaining stenosis. The right coronary artery intervention was technically complex, and the right posterior lateral branch (PLB) most likely jailed by the proximal to mid right coronary artery stenting. This is felt to be the likely culprit for her post procedure event. Echocardiogram performed this morning reveals a small to moderate circumferential pericardial effusion, perhaps related to noted RCA dissection during the procedure, or a post procedure Andreina's syndrome. A subtle wall motion abnormality of the basal inferior wall is noted, otherwise moderate concentric left ventricular hypertrophy, with LVEF of 6065% noted on echo. No tamponade physiology noted. Continue medication therapy with aspirin, prasugrel, unfractionated heparin. Continue metoprolol succinate, losartan, rosuvastatin, Protonix. Patient received hydrochlorothiazide this morning, but this is going to be placed on hold with fever of titrating amlodipine for small vessel disease. Patient to be n.p.o. for now, will discuss case with interventional cardiology with regards to timing of staged PCI, at which time, the right coronary artery will also be revisualized. Updates discussed with patient's significant other, Manuel, by phone. Admission and Anticipated Discharge Date Admission Date: August 14, 2020 Subjective Patient seen in follow-up. Nauseousness has resolved. Blood pressure is controlled within the ideal range this morning. She is on an unfractionated heparin infusion. She notes very minimal residual chest discomfort, perhaps a 4/10 discomfort she states that she is overall very comfortable. Her mentation is appropriate. She is in good spirits. Review of Systems Review of Systems: All systems reviewed & are unremarkable except as noted in HPI & below Physical Exam Physical Exam: Temp Pulse Resp BP Pulse Ox 36.6 C 58 L 21 136/93 98 08/14/20 08:00 08/14/20 09:04 08/14/20 09:04 08/14/20 09:04 08/14/20 09:04 Constitutional: WD/WN, vitals as above Respiratory: normal respiratory effort, lungs clear to auscultation Cardiovascular: RRR, no murmur, no edema Gastrointestinal (Abdomen): normal bowel sounds, soft, nontender, no hepatosplenomegaly Neurologic: PERRL, EOMI, accommodation nl, no face palsy, no dysarthria Results & Data ([facility]) Vital Signs (Past 12 Hours) Vital Signs Temp Pulse Resp BP Pulse Ox 08/14/20 09:04 58 L 21 136/93 98 08/14/20 09:00 67 13 98 08/14/20 08:34 57 L 18 128/98 95 08/14/20 08:04 56 L 20 136/82 95 08/14/20 08:00 36.6 C 58 L 23 136/93 97 08/14/20 07:34 68 14 127/85 95 08/14/20 07:05 57 L 20 128/81 96 08/14/20 07:00 58 L 20 96 08/14/20 06:04 59 L 22 136/84 98 08/14/20 06:00 58 L 20 97 08/14/20 05:36 60 17 97 08/14/20 05:05 60 22 98 08/14/20 05:04 58 L 6 L 116/74 99 08/14/20 05:00 59 L 17 97 08/14/20 04:34 61 22 106/65 98 08/14/20 04:04 65 17 97 08/14/20 04:00 36.4 C L 64 20 98 08/14/20 03:37 61 15 123/79 97 08/14/20 03:34 61 18 133/55 L 98 08/14/20 03:04 63 22 123/71 96 08/14/20 03:00 61 18 97 08/14/20 02:34 62 17 131/83 98 08/14/20 02:04 61 21 153/91 H 97 08/14/20 02:00 61 21 96 08/14/20 01:34 62 15 124/70 98 08/14/20 01:04 63 19 106/72 97 08/14/20 01:00 63 20 96 08/14/20 00:34 62 20 129/91 96 08/14/20 00:04 62 21 126/95 98 08/14/20 00:00 61 21 97 08/13/20 23:28 63 18 156/93 H 98 08/13/20 23:23 64 16 146/90 H 96 08/13/20 23:18 62 22 153/95 H 97 08/13/20 23:13 63 17 141/86 H 96 08/13/20 23:08 62 18 147/89 H 98 08/13/20 23:03 36.7 C 61 18 136/90 99 08/13/20 23:00 62 21 97 Laboratory Results Cardiac Enzymes 08/13/20 08/13/20 08/14/20 Range/Units 18:55 19:25 04:08 AST 42 H (15-37) U/L Troponin I 1.550 H* 44.300 H* (0-0.045) ng/ml Coagulation 08/13/20 08/14/20 Range/Units 19:25 04:08 PT 11.8 (9.0-12.0) Seconds APTT 92.5 H* (21.0-31.0) Seconds CBC 08/13/20 08/14/20 Range/Units 19:24 04:08 WBC 17.30 H 12.27 H (4.8-10.8) K/uL RBC 4.21 4.18 L (4.2-5.4) M/uL Hgb 14.4 13.9 (12.0-16.0) g/dL Hct 41.3 40.2 (37-47) % Plt Count 194 184 (130-400) K/uL Neut # (Auto) 14.61 H 10.17 H (1.4-6.5) K/uL Lymph # (Auto) 1.89 1.30 (1.2-3.4) K/uL [place] # (Auto) 0.67 H 0.76 H (0.11-0.59) K/uL Eos # (Auto) 0.08 0.01 (0-0.5) K/uL Baso # (Auto) 0.03 0.01 (0-0.2) K/uL Comprehensive Metabolic Panel 08/13/20 08/14/20 Range/Units 19:25 04:08 Sodium 135 L 134 L (136-145) mmol/L Potassium 4.1 4.4 (3.5-5.1) mmol/L Chloride 104 104 (98-107) mmol/L Carbon Dioxide 24 24 (21-32) mmol/L BUN 18 23 H (7-18) mg/dl Creatinine 1.01 1.13 (0.6-1.2) mg/dl Glucose 168 H 136 H (70-99) mg/dl Calcium 8.4 L 8.2 L (8.5-10.1) mg/dl Direct Bilirubin 0.3 H (0-0.2) mg/dl AST 42 H (15-37) U/L ALT 36 (12-78) U/L Alkaline Phosphatase 77 (45-117) U/L Total Protein 6.7 (6.4-8.2) gm/dl Albumin 3.4 (3.4-5.0) gm/dl Intake and Output 08/13/20 08/14/20 08/14/20 22:59 06:59 14:59 Intake Total 601.250 / 990.550 139.3 / 990.550 600 / 600 Output Total 300 / 850 550 / 850 Balance 301.250 / 140.550 -410.7 / 140.550 600 / 600 Intake: IV 601.250 / 740.550 139.3 / 740.550 600 / 600 HEPARIN SODIUM/DEXTROSE 25,000 139.3 / 139.3 units In 500 ml @ 0 UNITS/HR IV .Q0M [facility] Rx#:[id number] MAGNESIUM SULFATE / D5W 1 gm In 100 / 100 100 ml @ 50 mls/hr IV Q2H [facility] Rx#:[id number] Nss 1000ML 500 ml @ 999 mls/hr 600 / 600 500 / 500 IV .Q31M ONE Rx#:[id number] Cardene 25 mg In Nss 240 ml @ 0 1.250 / 1.250 0 / 0 MG/HR IV .Q0M [facility] Rx#:[id number] Output: Urine 550 / 550 Emesis 300 / 300 Other: # Unmeasured Voids 1 0 # Emeses 1 Weight 54.2 kg Weight Measurement Method Built in [facility]
[2020-08-14] MEDS ORDERED: PANTOprazole 40 MG in SYRINGE 0 ML IV SCH (11:00)
[2020-08-14] MEDS ORDERED: HEPARIN (PORCINE) 1000 UNIT/ML 10 ML (CATH LAB USE ONLY) ONE (11:24)
[2020-08-14] MEDS ORDERED: niCARdipine HCL INJ 2.5 MG/ML 10 ML AMP ONE (11:24)
[2020-08-14] MEDS ORDERED: MIDAZOLAM HCL 1 MG/ML 2ML VIAL ONE ×2 (11:24→12:53)
[2020-08-14] MEDS ORDERED: fentaNYL citrate 100 MCG/2 ML VIAL ONE (11:25)
[2020-08-14] MEDS ORDERED: NITROGLYCERIN/D5W 100MCG/ML 20ML SYR ONE (11:25)
--- NOTE | 2020-08-14 11:58 | Pre Anesthesia Assessment ---
Date of Service August 14, 2020 Pre Sedation Assessment Vital Signs Temp Pulse Pulse Resp BP BP Pulse Ox 08/14/20 11:05 56 L 22 151/93 H 94 08/14/20 10:35 59 L 12 101/61 92 08/14/20 10:14 61 20 142/82 H 97 08/14/20 09:34 59 L 21 120/86 97 08/14/20 09:04 58 L 21 136/93 98 08/14/20 09:00 67 13 98 08/14/20 08:34 57 L 18 128/98 95 08/14/20 08:04 56 L 20 136/82 95 08/14/20 08:00 97.9 F 58 L 23 136/93 97 08/14/20 07:34 68 14 127/85 95 08/14/20 07:05 57 L 20 128/81 96 08/14/20 07:00 58 L 20 96 08/14/20 06:04 59 L 22 136/84 98 08/14/20 06:00 58 L 20 97 08/14/20 05:36 60 17 97 08/14/20 05:05 60 22 98 08/14/20 05:04 58 L 6 L 116/74 99 08/14/20 05:00 59 L 17 97 08/14/20 04:34 61 22 106/65 98 08/14/20 04:04 65 17 97 08/14/20 04:00 97.5 F L 64 20 98 08/14/20 03:37 61 15 123/79 97 08/14/20 03:34 61 18 133/55 L 98 08/14/20 03:04 63 22 123/71 96 08/14/20 03:00 61 18 97 08/14/20 02:34 62 17 131/83 98 08/14/20 02:04 61 21 153/91 H 97 08/14/20 02:00 61 21 96 08/14/20 01:34 62 15 124/70 98 08/14/20 01:04 63 19 106/72 97 08/14/20 01:00 63 20 96 08/14/20 00:34 62 20 129/91 96 08/14/20 00:04 62 21 126/95 98 08/14/20 00:00 61 21 97 08/13/20 23:28 63 18 156/93 H 98 11/18/20 23:23 64 16 146/90 H 96 18/20 23:18 62 22 153/95 H 97 18/20 23:13 63 17 141/86 H 96 18/20 23:08 62 18 147/89 H 98 18/20 23:03 98.1 F 61 18 136/90 99 18/20 23:00 62 21 97 18/20 21:38 62 19 93/60 L 99 18/20 21:33 65 23 92/58 L 98 18/20 21:30 63 19 98 18/20 21:28 63 19 113/70 99 18/20 21:23 62 22 102/71 100 18/20 21:20 63 23 100 18/20 21:18 65 17 113/69 99 18/20 21:13 77 23 95 18/20 21:10 64 21 98 18/20 21:08 63 14 106/69 100 18/20 21:03 64 19 95/68 L 100 18/20 21:00 62 22 100 18/20 20:58 63 17 114/72 100 18/20 20:53 72 23 103/61 99 18/20 20:50 67 25 H 100 18/20 20:48 64 22 159/99 H 100 18/20 20:43 66 24 143/89 H 99 18/20 20:40 68 22 99 18/20 20:38 71 13 127/87 100 18/20 20:33 73 29 H 105/67 100 18/20 20:30 61 29 H 100 18/20 20:28 62 17 118/73 100 18/20 20:23 61 23 116/58 L 100 18/20 20:20 62 23 18/20 20:19 60 19 99 18/20 20:13 71 18 119/75 95 18/20 20:10 67 21 99 18/20 20:08 65 15 110/76 18/20 20:03 64 17 108/69 99 18/20 20:00 64 29 H 99 18/20 19:57 62 21 113/67 100 18/20 19:52 63 21 105/71 100 20 19:50 60 25 H 100 20 19:47 64 12 118/82 20 19:43 66 26 H 106/60 99 1820 19:41 67 23 131/78 98 1820 19:40 77 17 98 18 19:39 94 H 24 97/65 L 98 08/13/20 19:32 65 18 101/63 98 08/13/20 19:30 61 17 98 1820 19:27 62 21 94/61 L 99 08/13/20 19:22 61 23 103/75 97 1820 19:20 66 23 99 08/13/20 19:17 64 28 H 93/55 L 98 08/13/20 19:12 63 21 90/53 L 98 08/13/20 19:10 69 19 97 08/13/20 19:07 67 13 82/60 L 82 L 08/13/20 19:02 59 L 25 H 95/61 L 96 08/13/20 19:00 58 L 19 95 08/13/20 18:57 57 L 19 89/62 L 97 08/13/20 18:53 57 L 18 83/68 L 96 08/13/20 18:51 61 17 98/67 L 98 08/13/20 18:50 59 L 17 99 08/13/20 18:48 70 29 H 103/65 98 08/13/20 18:40 57 L 16 96 08/13/20 18:39 57 L 13 85/56 L 97 08/13/20 18:38 56 L 26 H 74/47 L 97 08/13/20 18:36 56 L 6 L 76/44 L 97 08/13/20 18:33 56 L 23 91/60 L 97 08/13/20 18:31 58 L 26 H 110/70 98 18 18:30 56 L 21 96 08/13/20 18:29 64 28 H 94 08/13/20 18:13 59 L 138/91 99 08/13/20 18:10 57 L 129/78 97 18 18:08 59 L 131/84 97 18 18:05 59 L 132/87 98 08/13/20 18:03 57 L 130/89 97 08/13/20 18:00 58 L 132/83 96 08/13/20 17:57 75 133/86 95 08/13/20 17:55 60 134/82 92 08/13/20 17:53 61 132/87 92 08/13/20 17:51 62 92 08/13/20 17:50 62 145/92 H 94 08/13/20 17:48 63 142/91 H 95 08/13/20 17:45 65 136/90 94 08/13/20 17:44 65 146/88 H 96 08/13/20 17:43 65 144/83 H 96 08/13/20 17:41 66 94 08/13/20 17:40 61 162/97 H 95 08/13/20 17:38 66 176/143 H 96 08/13/20 17:35 60 176/127 H 96 08/13/20 17:33 59 L 176/107 H 97 08/13/20 17:32 62 19 96 08/13/20 17:23 97.9 F 56 L 18 214/106 H 100 08/13/20 16:35 97.9 F 55 L 16 185/109 H 98 08/13/20 16:07 57 L 16 197/109 H 197 H 08/13/20 15:59 60 14 204/113 H 98 08/13/20 15:32 97.9 F 59 L 18 180/102 H 98 08/13/20 15:02 56 L 08/13/20 14:58 98.4 F 56 L 18 173/104 H 100 08/13/20 14:29 98.6 F 55 L 18 208/101 H 100 08/13/20 14:10 97.9 F 56 L 18 203/119 H 99 08/13/20 13:28 98.4 F 58 L 18 187/98 H 99 08/13/20 13:13 97.9 F 60 18 186/96 H 99 08/13/20 12:59 97.7 F 49 L 18 204/106 H 100 08/13/20 12:45 97.7 F 51 L 18 173/96 H 97 08/13/20 12:30 97.7 F 52 L 48 L 18 160/97 H 94 08/13/20 12:20 58 L 18 153/88 H 96 11/18/20 12:05 60 18 154/95 H 96 Cardiovascular RRR, no murmur, no edema Respiratory normal respiratory effort, lungs clear to auscultation Pre-Sedation Airway Assessment Smoking Status: Former smoker Hx Sleep Apnea: No Hx Difficult Intubation: No Short, Thick Neck: No Thyromental Distance: > or= 3.5 Finger Breadths Oral Cavity: + WNL Mallampati Class: II ASA: ASA2 NPO Status Date of Last Intake of Fluids: 08/13/20 Time of Last Intake of Fluids: 05:00 Date of Last Intake of Solid Food: 08/12/20 Time of Last Intake of Solid Foods: 22:00 Procedure Planning Contraindications for Sedation: none Current Medications Reviewed: Yes Notes The planned sedation has been discussed with the patient. Informed Consent was obtained. I have identified the patient, determined the appropriateness of sedation and have assessed the patient immediately prior to the procedure. All medicine(s) and interventions are by my order.
--- NOTE | 2020-08-14 13:02 | Post Anesthesia Assessment ---
Date of Service August 14, 2020 Post Sedation Assessment Vital Signs Temp Pulse Pulse Resp BP BP Pulse Ox 08/14/20 11:05 56 L 22 151/93 H 94 08/14/20 10:35 59 L 12 101/61 92 08/14/20 10:14 61 20 142/82 H 97 08/14/20 09:34 59 L 21 120/86 97 08/14/20 09:04 58 L 21 136/93 98 08/14/20 09:00 67 13 98 08/14/20 08:34 57 L 18 128/98 95 08/14/20 08:04 56 L 20 136/82 95 08/14/20 08:00 97.9 F 58 L 23 136/93 97 08/14/20 07:34 68 14 127/85 95 08/14/20 07:05 57 L 20 128/81 96 08/14/20 07:00 58 L 20 96 08/14/20 06:04 59 L 22 136/84 98 08/14/20 06:00 58 L 20 97 08/14/20 05:36 60 17 97 08/14/20 05:05 60 22 98 08/14/20 05:04 58 L 6 L 116/74 99 08/14/20 05:00 59 L 17 97 08/14/20 04:34 61 22 106/65 98 08/14/20 04:04 65 17 97 08/14/20 04:00 97.5 F L 64 20 98 08/14/20 03:37 61 15 123/79 97 08/14/20 03:34 61 18 133/55 L 98 08/14/20 03:04 63 22 123/71 96 08/14/20 03:00 61 18 97 08/14/20 02:34 62 17 131/83 98 08/14/20 02:04 61 21 153/91 H 97 08/14/20 02:00 61 21 96 08/14/20 01:34 62 15 124/70 98 08/14/20 01:04 63 19 106/72 97 08/14/20 01:00 63 20 96 08/14/20 00:34 62 20 129/91 96 08/14/20 00:04 62 21 126/95 98 08/14/20 00:00 61 21 97 08/13/20 23:28 63 18 156/93 H 98 11/18/20 23:23 64 16 146/90 H 96 18/20 23:18 62 22 153/95 H 97 18/20 23:13 63 17 141/86 H 96 18/20 23:08 62 18 147/89 H 98 18/20 23:03 98.1 F 61 18 136/90 99 18/20 23:00 62 21 97 18/20 21:38 62 19 93/60 L 99 18/20 21:33 65 23 92/58 L 98 18/20 21:30 63 19 98 18/20 21:28 63 19 113/70 99 18/20 21:23 62 22 102/71 100 18/20 21:20 63 23 100 18/20 21:18 65 17 113/69 99 18/20 21:13 77 23 95 18/20 21:10 64 21 98 18/20 21:08 63 14 106/69 100 18/20 21:03 64 19 95/68 L 100 18/20 21:00 62 22 100 18/20 20:58 63 17 114/72 100 18/20 20:53 72 23 103/61 99 18/20 20:50 67 25 H 100 18/20 20:48 64 22 159/99 H 100 18/20 20:43 66 24 143/89 H 99 18/20 20:40 68 22 99 18/20 20:38 71 13 127/87 100 18/20 20:33 73 29 H 105/67 100 18/20 20:30 61 29 H 100 18/20 20:28 62 17 118/73 100 18/20 20:23 61 23 116/58 L 100 18/20 20:20 62 23 18/20 20:19 60 19 99 18/20 20:13 71 18 119/75 95 18/20 20:10 67 21 99 18/20 20:08 65 15 110/76 18/20 20:03 64 17 108/69 99 18/20 20:00 64 29 H 99 18/20 19:57 62 21 113/67 100 18/20 19:52 63 21 105/71 100 20 19:50 60 25 H 100 20 19:47 64 12 118/82 20 19:43 66 26 H 106/60 99 1820 19:41 67 23 131/78 98 1820 19:40 77 17 98 18 19:39 94 H 24 97/65 L 98 08/13/20 19:32 65 18 101/63 98 08/13/20 19:30 61 17 98 1820 19:27 62 21 94/61 L 99 08/13/20 19:22 61 23 103/75 97 1820 19:20 66 23 99 08/13/20 19:17 64 28 H 93/55 L 98 08/13/20 19:12 63 21 90/53 L 98 08/13/20 19:10 69 19 97 08/13/20 19:07 67 13 82/60 L 82 L 08/13/20 19:02 59 L 25 H 95/61 L 96 08/13/20 19:00 58 L 19 95 08/13/20 18:57 57 L 19 89/62 L 97 08/13/20 18:53 57 L 18 83/68 L 96 08/13/20 18:51 61 17 98/67 L 98 08/13/20 18:50 59 L 17 99 08/13/20 18:48 70 29 H 103/65 98 08/13/20 18:40 57 L 16 96 08/13/20 18:39 57 L 13 85/56 L 97 08/13/20 18:38 56 L 26 H 74/47 L 97 08/13/20 18:36 56 L 6 L 76/44 L 97 08/13/20 18:33 56 L 23 91/60 L 97 08/13/20 18:31 58 L 26 H 110/70 98 18 18:30 56 L 21 96 08/13/20 18:29 64 28 H 94 08/13/20 18:13 59 L 138/91 99 08/13/20 18:10 57 L 129/78 97 18 18:08 59 L 131/84 97 18 18:05 59 L 132/87 98 08/13/20 18:03 57 L 130/89 97 08/13/20 18:00 58 L 132/83 96 08/13/20 17:57 75 133/86 95 08/13/20 17:55 60 134/82 92 08/13/20 17:53 61 132/87 92 08/13/20 17:51 62 92 08/13/20 17:50 62 145/92 H 94 08/13/20 17:48 63 142/91 H 95 08/13/20 17:45 65 136/90 94 08/13/20 17:44 65 146/88 H 96 08/13/20 17:43 65 144/83 H 96 08/13/20 17:41 66 94 08/13/20 17:40 61 162/97 H 95 08/13/20 17:38 66 176/143 H 96 08/13/20 17:35 60 176/127 H 96 08/13/20 17:33 59 L 176/107 H 97 08/13/20 17:32 62 19 96 08/13/20 17:23 97.9 F 56 L 18 214/106 H 100 08/13/20 16:35 97.9 F 55 L 16 185/109 H 98 08/13/20 16:07 57 L 16 197/109 H 197 H 08/13/20 15:59 60 14 204/113 H 98 08/13/20 15:32 97.9 F 59 L 18 180/102 H 98 08/13/20 15:02 56 L 08/13/20 14:58 98.4 F 56 L 18 173/104 H 100 08/13/20 14:29 98.6 F 55 L 18 208/101 H 100 08/13/20 14:10 97.9 F 56 L 18 203/119 H 99 08/13/20 13:28 98.4 F 58 L 18 187/98 H 99 08/13/20 13:13 97.9 F 60 18 186/96 H 99 Recovery Score Activity: Moves 4 extremities Respiration: Deep Breath/Cough Circulation: +/-20% PreAnes Value Consciousness: Fully Awake Oxygen Saturation: > 92% On Room Air Post Anesthesia Score: 10 Discharge Sedation Level of Care: Fast Track Phase II Post Sedation Plan On clinical assessment, the patient appears to have tolerated the sedation without complications. Patient is recovering as anticipated. Patient will continue to be monitored by nursing and may be discharged when sedation discharge criteria are met per below protocol. Upon Completions of procedure up to 15 minutes continue every 5 minute vital signs and the P.A.R. score; then discharge to a Phase I or Fast Track to Phase II per the following guidelines: * Discharge Patient to appropriate Phase II area if PAR is 8 or greater or return to pre- procedure baseline. The post - procedure orders will be as directed. * If PAR score is less than 8 or not return to pre-procedure baseline then patient will follow Phase I monitoring till PAR is reached for Phase II. The Phase I may be done in procedure room or may call to secure a Phase I area. * If naloxone or flumazenil are used for reversal, hold in Phase I for continued monitoring from when last reversal dose was given for a minimum of 60 minutes or longer pending the nurse and/or physician discretion of patient condition before discharge to Phase II. Please call the Sedation Physician to re-evaluate and complete post-note for discharge to Phase II area. Do NOT discharge from procedure sedation or Phase 1 until post- sedation evaluation note is complete by procedure /sedation MD Sedation Discharge Instructions to be given to the patient at discharge to home.
--- NOTE | 2020-08-14 13:05 | Post Operative Brief Note ---
Cardiology Brief Post Op Date of Surgery August 14, 2020 Pre & Post Diagnosis Operation Date: 08/13/20 09:30 <No data on this case meets the specified criteria> Operation Date: 08/14/20 10:30 <No data on this case meets the specified criteria> Procedure Cardiac catheterization/PCI Bridge Painter Zac Ramos MD Nursing Faculty Sam Estimated Blood Loss 15 Findings See Below RCA stents widely patent. Severe residual stenosis at ostium of small R-PLB - ANAMIKA 3 flow -- medically manage. Successful PCI of distal circumflex with 2.25 x 12 Nitin WEI Successful PCI of mid LAD with 2 overlapping WEI (2.5 x 8, 2.5 x 22 Nitin; post- dilated with 2.75 NC). Anesthesia Type RN Sedation Complications none Disposition Disposition: Surgical ICU Overlapping Procedure I was present for: the critical portions of procedure.
[2020-08-14] MEDS ORDERED: SODIUM CHLORIDE 0.9% 1000ML 1,000 ML IV SCH (13:15)
[2020-08-14] MEDS: amLODIPine BESYLATE 5 MG TAB PO SCH (13:34)
[2020-08-14] MEDS: PANTOprazole 40 MG TAB PO SCH (13:34)
[2020-08-14 14:56] LABS: Troponin I 36.6 ng/ml (0-0.045)
[2020-08-14 15:02] LABS: Partial Thromboplastin Ratio > 5.0
[2020-08-14 15:03] LABS: Partial Thromboplastin Time > 139.0 Seconds (21.0-31.0)
--- NOTE | 2020-08-14 15:18 | Electrocardiogram Report ---
Test Reason : Blood Pressure : / mmHG Vent. Rate : 060 BPM Atrial Rate : 060 BPM P-R Int : 112 ms QRS Dur : 070 ms QT Int : 418 ms P-R-T Axes : 026 073 176 degrees QTc Int : 418 ms Normal sinus rhythm Possible Septal infarct , age undetermined Abnormal ECG When compared with ECG of 08-APR-2003 14:31, T wave inversion now evident in Inferior leads T wave inversion now evident in Anterolateral leads Confirmed by Spencer Marie ([id number]) on 08/14/2020 3:18:20 PM Referred By: Jassi Lambert Confirmed By:Spencer Marie
--- NOTE | 2020-08-14 15:21 | Electrocardiogram Report ---
Test Reason : Blood Pressure : / mmHG Vent. Rate : 066 BPM Atrial Rate : 066 BPM P-R Int : 134 ms QRS Dur : 070 ms QT Int : 408 ms P-R-T Axes : 055 064 162 degrees QTc Int : 427 ms Normal sinus rhythm Abnormal ECG When compared with ECG of 13-AUG-2020 17:39, No significant change was found Confirmed by Spencer Marie ([id number]) on 08/14/2020 3:21:47 PM Referred By: Jassi Lambert Confirmed By:Spencer Marie
--- NOTE | 2020-08-14 15:23 | Electrocardiogram Report ---
Test Reason : Blood Pressure : / mmHG Vent. Rate : 065 BPM Atrial Rate : 065 BPM P-R Int : 124 ms QRS Dur : 066 ms QT Int : 406 ms P-R-T Axes : 067 067 184 degrees QTc Int : 422 ms Normal sinus rhythm Possible Septal infarct Abnormal ECG When compared with ECG of 13-Aug-2020 20:45, No significant change Confirmed by Spencer Marie ([id number]) on 08/14/2020 3:22:27 PM Referred By: Jassi Lambert Confirmed By:Spencer Marie
[2020-08-14] MEDS ORDERED: LORazepam 0.25 MG/0.5 ML VIAL IV STA (17:43)
--- NOTE | 2020-08-14 18:31 | Cardiac Catheterization ---
ACC Data: Blast Furnace Operator Cardiac Status Clinical evaluation leading to the procedure CAD Presenation: Non STEMI Anginal Classification: CCS IV Heart Failure: No Cardiogenic Shock within 24 Hours: No Cardiac Arrest within 24 Hours: No Imaging Studies Past 6 Months: Yes Stress Studies Past 6 Months: Yes Stress Echocardiogram: Yes - Positive and Risk/Extent of Ischemia (High) Diagnostic Physicians Name: Zac Ramos MD Status: Elective Closure Device Percutaneous Entry Location: Radial Recommendations: PCI without planned CABG PCI Indication: PCI for high risk Non-SOURAV Lesion Segment Name: Distal circumflex Culprit Artery: Yes Stenosis Prior to Rx (%): 95 Chronic Total Occlusion: No IVUS: No FFR: No Pre-Procedure ANAMIKA Flow: 2 Previously Treated Lesion: No Lesion Complexity: Non-High/Non-C Lesion Length (mm): 10 Thrombus Present: No Bifurcation Lesion: No Guidewire Across Lesion: Stenosis Post-Procedure (%): 0 Post-Procedure ANAMIKA Flow: 3 Devices(s) Deployed: Yes Yes Lesion #2 Segment Name: Mid LAD Culprit Artery: No Stenosis Prior to Rx (%): 80 Chronic Total Occlusion: No IVUS: No FFR: No Pre-Procedure ANAMIKA Flow: 3 Previously Treated Lesion: No Lesion Length (mm): 18 Thrombus Present: No Bifurcation Lesion: Yes Guidewire Across Lesion: Yes Stenosis Post-Procedure (%): 0 Post-Procedure ANAMIKA Flow: 3 Devices(s) Deployed: Yes Intraprocedure Events Significant Disection: No Perforation: No Cardiac Cath Procedure Full Procedure Date August 14, 2020 Pre-Procedure Diagnosis Pre-Procedure Diagnosis: Angina and CAD AUC Score AUC Score: 7 Post-Procedure Diagnosis Post-Procedure Diagnosis: Severe CAD and Successful PCI Procedure(s) Performed Procedure(s) Performed: Coronary Angiography, Left Heart Cath and Drug Eluting Stent Truck Operator Zac Ramos MD Cardiac Cath Technician(s) Sam Estimated Blood Loss Estimated Blood Loss: 20 Medication(s) Medication(s): Fentanyl, Heparin, Nicardipine, Nitroglycerin and Versed Medication(s): Prasugrel Summary of Findings Indication: Patient previously underwent cardiac catheterization yesterday and was found to have multivessel disease. Underwent PCI to RCA with 3 drug-eluting stents placed (2 to mid RCA, 1 from distal RCA into PDA). Post procedure stents well expanded but noted to have residual stenosis in right marginal branch and posterior lateral branch. Overnight patient had intermittent chest pain, labile blood pressures with ST depressions on ECG. Troponin elevated and peaked at 44 this morning. Repeat echocardiogram showed preserved LV function with subtle basal inferior wall motion abnormality. Patient brought back to Blast Furnace Operator for reevaluation of RCA and staged PCI of LAD, circumflex. Access: 6 Fr right radial artery Catheters: Diagnostic JR4, EBU 3.5 Findings: LM -no significant disease LAD -medium caliber, calcified mild to moderate diffuse proximal disease, 80 to 90% mid segment stenosis at takeoff of small diagonal. Circumflex -medium caliber vessel, mild mid segment disease, 95% focal stenosis in small distal circumflex RCA -dominant, widely patent mid RCA stents, distal luminal regularities, PDA stent widely patent with angulation/mild residual stenosis just after stent. ANAMIKA-3 flow in PDA. Small PLB with severe ostial stenosis and ANAMIKA II-III flow. LVEDP -20 -- PCI -- Antithrombotic therapy: Heparin, prasugrel Procedure: Left main cannulated with EBU 3.5 guide Watch Hairspring Assembler 50 wire passed across distal circumflex lesion into distal left PLB Distal circumflex lesion predilated with 2.0 compliant balloon With the aid of a GuideLiner dilated lesion stented with 2.25 x 12 mm [place] drug- eluting stent Stent post-dilated with stent balloon IC vasodilators administered for spasm Post procedure ANAMIKA 3 flow, stent well expanded with minimal residual stenosis and no apparent cardiac complications. Watch Hairspring Assembler 50 wire removed from circumflex and passed across mid LAD stenosis into distal vessel Mid LAD dilated with 2.0 balloon Mid LAD stented with 2.5 x 22 mm [place] Stent postdilated with 2.75 NC. Suggestion of edge dissection involving proximal aspect of mid LAD stent Second WEI (2.5 x 8 mm Nitin) placed to mid LAD overlapping proximal aspect of initial stent. IC vasodilators administered for spasm Post procedure ANAMIKA 3 flow, stent well expanded with minimal residual stenosis. Small third diagonal occluded in the process of intervention. Arterial Closure: TR band Summary: 1. Widely patent mid RCA and right PDA stents 2. Residual severe mid LAD and distal circumflex disease 3. Elevated intracardiac filling pressure 4. Successful PCI of distal circumflex with single drug-eluting stent (2.25 x 12 mm Nitin). 5. Successful PCI of mid LAD with 2 overlapping drug-eluting stents (2.5 x 8, 2.5 x 22 [place]; postdilated with 2.75 NC). Recommendations: To ICU for continued monitoring Continue dual-antiplatelet therapy for at least 1 year. Can transition prasugrel to clopidogrel on discharge. Continue statin, and ASCVD risk factor modification Hemodynamics Rest Ao:: 151/78/109 Final Ao: 156/80/112 LV: 150/20 Recommendations Recommendations: PCI without planned CABG Specimens Specimens: None Radiation Exposure (mGy) 1691 Contrast (mls) 105 Fluids (cc crystalloids) Fluids (cc crystalloids): 150 Drains Drains: none Anesthesia moderate Procedural Complication(s) None Disposition PCU I attest to the content of the Intraoperative Record and any orders documented therein. Any exceptions are noted below. [facility] Card Cath Procedure Codes Cardiac Catheterization Procedure 1: Cardiovascular Cath Procedures: 41859 Coronaries and LHC (+/-LV) Moderate Sedation Procedure 1: Sedation/Anesthesia: 56544 Mod Sedation by the same physician;Init15 Min Child Age 5 & Up Procedure 2: Sedation/Anesthesia: 53839 Mod Sedation by the same physician; Ea [id number] Minutes Stenting Procedure 1: Cardiovascular Stent Procedures: 26305 Perc transcatheter placement of intracoronary stent(s), with ang Procedure 2: Cardiovascular Stent Procedures: 96039 Ea addl branch of a major coronary artery PG Care Time/CCT Total # of Minutes Spent Total Time Spent with Patient: Total time spent is greater than 50% in coordination of care (as documented) at patient's floor/unit and/or counseling patient:
--- NOTE | 2020-08-14 18:53 | Billing Data ---
Date of Service August 14, 2020 Coding Level of Care Code 73078 Subseq Hosp Care Lvl 3
--- NOTE | 2020-08-14 19:16 | Communication Note ---
Date of Service: August 14, 2020 Pt reassessed in person 90 minutes ago. BP had been trending up, now resting after low dose of IV ativan and BP improved to 116/77. I spoke to her nurse in follow up , pt doing well, still has residual 2/10 chest pain pre and post procedure however not worse and overall comfortable. Post cath EKG from today stable.
[2020-08-14] MEDS: ONDANSETRON INJ 2 MG/ML 2 ML VIAL IV PRN (21:14)
--- NOTE | 2020-08-14 22:37 | Electrocardiogram Report ---
Test Reason : Blood Pressure : / mmHG Vent. Rate : 062 BPM Atrial Rate : 062 BPM P-R Int : 126 ms QRS Dur : 070 ms QT Int : 428 ms P-R-T Axes : 061 064 076 degrees QTc Int : 434 ms Normal sinus rhythm T wave abnormality, consider inferolateral ischemia Abnormal ECG When compared with ECG of 13-AUG-2020 20:47, Criteria for Septal infarct are no longer Present ST no longer depressed in Anterolateral leads T wave inversion no longer evident in Anterior leads Confirmed by Spencer Marie ([id number]) on 08/14/2020 10:37:39 PM Referred By: Jassi Lambert Confirmed By:Spencer Marie
[2020-08-15 05:02] LABS: Basophils # (auto) 0.01 K/uL (0-0.2); Basophils % (auto) 0.1 %; Eosinophils # (auto) 0.02 K/uL (0-0.5); Eosinophils % (auto) 0.2 %; Hematocrit (blood only) 35.6 % (37-47); Hemoglobin 12.2 g/dL (12.0-16.0); Immature Granulocytes # (auto) 0.02 K/uL (0.00-0.02); Immature Granulocytes % (auto) 0.2 %; Lymphocytes # (auto) 2.51 K/uL (1.2-3.4); Lymphocytes % (auto) 19.8 %; Mean Corpuscular Hemoglobin 33.6 pg (25-34); Mean Corpuscular Hgb Conc 34.3 g/dL (32-36); Mean Corpuscular Volume 98.1 fL (80-100); Mean Platelet Volume 11.7 fL (7.4-10.4); Monocytes # (auto) 1.47 K/uL (0.11-0.59); Monocytes % (auto) 11.6 %; Neutrophils # (auto) 8.62 K/uL (1.4-6.5); Neutrophils % (auto) 68.1 %; Platelet Count 169 K/uL (130-400); RDW Coefficient of Variation 12.8 % (11.5-14.5); RDW Standard Deviation 46.2 fL (36.4-46.3); Red Blood Count 3.63 M/uL (4.2-5.4); White Blood Count 12.65 K/uL (4.8-10.8)
[2020-08-15 05:32] LABS: Calcium 7.9 mg/dl (8.5-10.1); Creatinine Clr Calc Pharmacy 45.7 ml/min; Est GFR (African American) 77.2; Est GFR (Non-African American) 66.6; Magnesium 2.3 mg/dl (1.8-2.4); Potassium 3.9 mmol/L (3.5-5.1)
[2020-08-15] MEDS ORDERED: METOPROLOL TARTRATE 1 MG/ML VIAL IV STA ×3 (05:45→05:57)
[2020-08-15] MEDS ORDERED: METOPROLOL TARTRATE 1 MG/ML VIAL IV ONE (05:45)
[2020-08-15 05:52] LABS: Estimated Average Glucose 114 mg/dl; Hemoglobin A1C 5.6 % (4.5-5.6)
[2020-08-15] MEDS ORDERED: MoRPHine SULFATE 2 MG/ML CARP IV STA (05:57)
[2020-08-15] MEDS ORDERED: dilTIAZem HCl 5 MG/ML 5 ML VIAL IV STA (05:58)
--- NOTE | 2020-08-15 05:58 | Electrocardiogram Report ---
Test Reason : Blood Pressure : / mmHG Vent. Rate : 060 BPM Atrial Rate : 060 BPM P-R Int : 130 ms QRS Dur : 072 ms QT Int : 450 ms P-R-T Axes : 059 061 002 degrees QTc Int : 450 ms Sinus rhythm with Premature atrial complexes T wave abnormality, consider inferolateral ischemia Abnormal ECG When compared with ECG of 14-AUG-2020 06:15, Premature atrial complexes are now Present T wave inversion more evident in Inferolateral leads Confirmed by Spencer Marie ([id number]) on 08/15/2020 5:58:22 AM Referred By: Jassi Lambert Confirmed By:Spencer Marie
[2020-08-15] MEDS ORDERED: POTASSIUM CHLORIDE CRTAB 20 MEQ TABCR PO STA (05:59)
[2020-08-15] MEDS ORDERED: MoRPHine SULFATE 2 MG/ML CARP IV PRN (06:04)
[2020-08-15] MEDS ORDERED: traMADol HCL 50 MG TABLET PO PRN (06:04)
[2020-08-15] MEDS ORDERED: LORazepam 0.25 MG/0.5 ML VIAL IV PRN (06:05)
[2020-08-15 06:10] LABS: Phosphorus 2.1 mg/dl (2.5-4.9); Troponin I 16.4 ng/ml (0-0.045)
[2020-08-15] MEDS ORDERED: PROMETHAZINE HCL 6.25 MG in SODIUM CHLORIDE 0.9% 50 ML IV PRN (06:12)
[2020-08-15] MEDS ORDERED: AMIODARONE 360MG / 200ML D5W IV ONE (06:34)
[2020-08-15 06:35] LABS: Albumin Level 3.1 gm/dl (3.4-5.0)
[2020-08-15] MEDS ORDERED: AMIODARONE / D5W 360 MG/200 ML BAG IV ONE (06:36)
[2020-08-15] MEDS ORDERED: 0.2 MICRON FILTER SET 1 EA IV ONE (06:36)
[2020-08-15] MEDS: METOPROLOL SUCC 50MG EXT REL TAB PO SCH (06:38)
--- NOTE | 2020-08-15 06:48 | Hospitalist Consultation ---
Date of Consultation August 15, 2020 Assessment & Plan (1) New onset a-fib: Final Assessment and Recommendations as follows : New onset A. fib Uncontrolled hypertension Recent AMI, multivessel CAD on diagnostic cardiac catheterization status post staged PCI chronic hyponatremia anxiety disorder, stable as per patient IV Cardizem bolus now Facilitate morning dose Lopressor, may need dose titration Analgesia, anxiolytics as needed DVT prophylaxis. SCDs RE post PCI pericardial effusion, possible hemopericardium I messaged Dr. Olivares of Cardiology of ICU nurse's call to [facility]ist service this morning. He will call ICU now to get patient update. Thank you very much for this consultation. Dr. Valdes will follow patient's progress. Text document was generated using [employer] voice recognition software. It may contain grammatical or spelling errors. Kindly contact undersigned for clarification of any documentation item in question. History of Present Illness Reason for Consultation: Medical management Requesting Physician: Dr. Olivares Attending Physician: Alex Tolentino DO History of Present Illness PCP : Dr. Diaz Khalil History obtained from patient and records. Medical history significant for multivessel CAD status post recent stent, hypertension, chronic hyponatremia, anxiety disorder. Patient admitted 2 days ago under cardiology service for acute coronary syndrome status post staged PCI procedures after an abnormal outpatient stress test prompted by 1 month history of intermittent chest discomfort/fluttering heart symptoms. Small to moderate circumferential pericardial effusion noted yes terday on 2D echo. This morning, patient suddenly went into rapid A. fib as per RN. Cardiac rate 150s, SBP 1 50-1 60s. Usual substernal discomfort with more pronounced fluttering symptoms as per pat ient. No shortness of breath. Usual cough symptoms from throat dryness as per patient. Cardiac rate still 140s after IV Lopressor administration by RN. 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 Allergies Allergy/AdvReac Type Severity Reaction Status Date / Time morphine AdvReac Intermediate sick as Verified 08/15/20 06:49 per px Home Medications Medication Instructions Recorded Confirmed Type Hctz/Losartan (Hyzaar 12.5MG/50MG) 1 tab PO DAILY #0 tab 03/14/18 08/13/20 History Lorazepam 0.5 mg PO DAILY #0 03/14/18 08/13/20 History Metoprolol Succinate (Metoprolol 100 mg PO DAILY #0 03/14/18 08/13/20 History Succinate ER) citalopram [Celexa] 20 mg PO DAILY 08/13/20 08/13/20 History rosuvastatin [Crestor] 20 mg PO DAILY 08/13/20 08/13/20 History Patient History Social History Smoking Status: Former smoker Hx Alcohol Use: Yes Hx Substance Use: Yes Preferred Language: Tamaz[place] Current Living Situation: Family Feels Safe at Home: Yes Safety Concerns: Feels Safe At This Time Assistive Devices: Oxygen - Continuous Review of Systems Review of Systems: As per HPI, all 10 systems reviewed, all other ROS negative Physical Exam Physical Exam: GENERAL: Comfortable, pleasant, looks younger for stated age, slightly anxious, no respiratory distress SKIN: Normal color, warm HEENT: [place] palpebral conjunctivae, no ptosis, dry buccal mucosa NECK : Supple, no tenderness CHEST : CTA, no tenderness HEART : Tachycardic, irregular, no obvious murmurs ABDOMEN: Some distention, nontender EXTREMITIES : No LE swelling/tenderness, no other conspicuous deformities noted NEUROLOGIC : Coherent, no facial asymmetry, no other gross focality Results & Data Results & Data ([facility]) Vital Signs (Past 12 Hours) Vital Signs Pulse Resp BP Pulse Ox 08/15/20 06:24 150 H 141/107 H 08/15/20 06:00 160 H 23 139/117 H 97 08/15/20 05:50 130 H 17 141/107 H 96 08/15/20 05:00 68 22 91 08/15/20 04:50 66 21 166/101 H 91 08/15/20 04:00 74 17 93 08/15/20 03:49 72 24 136/87 90 08/15/20 03:00 70 22 90 08/15/20 02:49 67 22 140/77 91 08/15/20 02:00 70 21 90 08/15/20 01:49 68 21 148/87 H 92 08/15/20 01:00 65 21 91 08/15/20 00:49 67 21 139/95 91 08/15/20 00:00 67 20 92 08/14/20 23:50 63 21 149/95 H 93 08/14/20 23:00 67 22 94 08/14/20 22:49 64 16 170/100 H 94 08/14/20 22:00 65 21 93 08/14/20 21:50 68 21 93 08/14/20 21:00 69 20 93 08/14/20 20:49 72 18 158/92 H 93 08/14/20 20:17 67 22 140/81 93 08/14/20 20:00 71 24 94 08/14/20 19:49 71 27 H 140/81 94 08/14/20 19:00 72 21 93 Laboratory Results Laboratory Results WBC 12.65 K/uL (4.8-10.8) H 08/15/20 04:34 RBC 3.63 M/uL (4.2-5.4) L 08/15/20 04:34 Hgb 12.2 g/dL (12.0-16.0) 08/15/20 04:34 Hct 35.6 % (37-47) L 08/15/20 04:34 MCV 98.1 fL (80-100) 08/15/20 04:34 MCH 33.6 pg (25-34) 08/15/20 04:34 MCHC 34.3 g/dL (32-36) 08/15/20 04:34 RDW Std Deviation 46.2 fL (36.4-46.3) 08/15/20 04:34 RDW Coeff of [place] 12.8 % (11.5-14.5) 08/15/20 04:34 Plt Count 169 K/uL (130-400) 08/15/20 04:34 MPV 11.7 fL (7.4-10.4) H 08/15/20 04:34 Immature Gran % (Auto) 0.2 % 08/15/20 04:34 Neut % (Auto) 68.1 % 08/15/20 04:34 Lymph % (Auto) 19.8 % 08/15/20 04:34 Brown % (Auto) 11.6 % 08/15/20 04:34 Eos % (Auto) 0.2 % 08/15/20 04:34 Baso % (Auto) 0.1 % 08/15/20 04:34 Neut # (Auto) 8.62 K/uL (1.4-6.5) H 08/15/20 04:34 Lymph # (Auto) 2.51 K/uL (1.2-3.4) 08/15/20 04:34 Brown # (Auto) 1.47 K/uL (0.11-0.59) H 08/15/20 04:34 Eos # (Auto) 0.02 K/uL (0-0.5) 08/15/20 04:34 Baso # (Auto) 0.01 K/uL (0-0.2) 08/15/20 04:34 Immature Gran # (Auto) 0.02 K/uL (0.00-0.02) 08/15/20 04:34 PT 11.8 Seconds (9.0-12.0) 08/13/20 19:25 INR 1.1 (0.9-1.1) 08/13/20 19:25 APTT > 139.0 Seconds (21.0-31.0) H* 08/14/20 13:41 PTT Ratio > 5.0 08/14/20 13:41 Activ Coag Time Kaolin 285 SECONDS (94-140) H 08/14/20 12:23 Sodium 134 mmol/L (136-145) L 08/15/20 04:34 Potassium 3.9 mmol/L (3.5-5.1) 08/15/20 04:34 Chloride 105 mmol/L (98-107) 08/15/20 04:34 Carbon Dioxide 26 mmol/L (21-32) 08/15/20 04:34 Anion Gap 3.0 (3-11) 08/15/20 04:34 BUN 22 mg/dl (7-18) H 08/15/20 04:34 Creatinine 0.89 mg/dl (0.6-1.2) 08/15/20 04:34 Est Cr Clr Drug Dosing 45.7 ml/min 08/15/20 04:34 Est GFR ( Amer) 77.2 08/15/20 04:34 Est GFR (Non-Af Amer) 66.6 08/15/20 04:34 BUN/Creatinine Ratio 25.0 (10-20) H 08/15/20 04:34 Glucose 104 mg/dl (70-99) H 08/15/20 04:34 POC Glucose 168 mg/dl (70-99) H 08/13/20 19:04 Estimat Average Glucose 114 mg/dl 08/14/20 13:41 Hemoglobin A1c 5.6 % (4.5-5.6) 08/14/20 13:41 Calcium 7.9 mg/dl (8.5-10.1) L 08/15/20 04:34 Phosphorus 2.1 mg/dl (2.5-4.9) L 08/15/20 04:34 Magnesium 2.3 mg/dl (1.8-2.4) 08/15/20 04:34 Total Bilirubin 0.6 mg/dl (0.2-1) 08/13/20 19:25 Direct Bilirubin 0.3 mg/dl (0-0.2) H 08/13/20 19:25 AST 42 U/L (15-37) H 08/13/20 19:25 ALT 36 U/L (12-78) 08/13/20 19:25 Alkaline Phosphatase 77 U/L (45-117) 08/13/20 19:25 Troponin I 16.400 ng/ml (0-0.045) H* 08/15/20 04:34 Total Protein 6.7 gm/dl (6.4-8.2) 08/13/20 19:25 Albumin 3.1 gm/dl (3.4-5.0) L 08/15/20 04:34 Triglycerides 61 mg/dl (0-150) 08/14/20 13:41 Cholesterol 117 mg/dl (0-200) 08/14/20 13:41 LDL Cholesterol, Calc 47 mg/dl 08/14/20 13:41 VLDL Cholesterol, Calc 12 mg/dl 08/14/20 13:41 HDL Cholesterol 58 mg/dl 08/14/20 13:41 Cholesterol/HDL Ratio 2 08/14/20 13:41 TSH 2.650 uIu/ml (0.300-4.500) 08/13/20 19:25
[2020-08-15] MEDS ORDERED: HYDROmorphone INJ 0.5 MG/0.5 ML SYR IV PRN (06:49)
[2020-08-15] MEDS ORDERED: POLYETHYLENE (MIRALAX) 17 GM PACK PO PRN (06:50)
--- NOTE | 2020-08-15 07:39 | Critical Care Progress Note ---
Date of Service August 15, 2020 Assessment & Plan (1) S/P right coronary artery (RCA) stent placement: Reason Critically Ill: 69 yo F PMHx HTN, HLD, anxiety, depression, unstable angina presented to hospital for catheterization following positive stress test outpatient. Was admitted to ICU for nifedipine gtt for hypertensive emergency. Neuro - Headache/Blurry Vision: - Symptoms on 08/13 when BP >220, how resolved with normotension. - CT Head performed showing no hemorrhage, mass effect, or evidence of CVA. Depression/Anxiety: - Continue home sertraline daily, Ativan prn. Cardiac - Severe multivessel CAD: - Stress test on 08/11 showed inferior hypokinesis during stress suggestive of RCA distribution ischemia. - 08/13 had successful PCI of proximal and mid-RCA with WEI. - 08/14 had staged PCI of LAD and LCx lesions. - EKG 08/13/2020: Mild ST elevation appreciated in leads II, III and aVF, ST depression with T wave inversions in the anterolateral leads especially V3-V4. - Repeat EKGs with resolution of ST changes and T wave inversions in anterior leads. - Troponin trended up from 1.55 to 44.3 this admission following RCA stenting, but plateaued and without anginal equivalents this morning. - Suspect elevation was secondary to jailed vessel due to RCA stent placemen t. - Echo performed yesterday which showed mild to moderate circumferential pericardial effusion. Repeat ordered for today. - BP management outlined below. - DAPT for at least one year following PCI. Hypertensive emergency: - History of HTN, at home on HCTZ/Losartan 12.5/50, Toprol XL 100 daily. - Post-catheterization yesterday with elevated BP to 220 systolic despite receiving several antihypertensives. - Transferred to ICU for nifedipine gtt, patient's BP decreased significantly by time of arrival to ICU to hypotension. - Nifedipine gtt never started, received 1L NSS bolus and BP has been normotensive overnight. - In hospital, continue HCTZ 25 daily, losartan 100mg daily, home dose Toprol XL. - May need tighter BP control in outpatient setting. Have also encouraged to quit smoking. AFib with RVR: - No former history of AFib, last night with episode of AFib with RVR. - No anticoagulation for now given pericardial effusion. - Continue metoprolol succinate 100mg daily. - Currently on amiodarone gtt; to continue until results of Echo are available. Respiratory - - Patient without history of lung disease, however with extensive smoking history. - Encouraged smoking cessation especially in light of her severe multivessel CAD. GI - - Heart Healthy diet. - Pantoprazole PO for GI ppx. RENAL/LYTES - - No electrolyte abnormalities or kidney dysfunction on labwork this AM. - - No present concerns. ENDO - - No history of thyroid disease of DM2. - Hgb A1c 5.6% this admission. HEME - -Hgb 13.9 -> 12.2 this AM, no signs of bleeding however with pericardial effusion on Echo yesterday. Repaet Echo ordered today. ID - - No concerns for infection at this point. - Monitor fever curve. INTEGUMENTARY - - Catheterization site clean, dry, no hematoma. LINES/IV ACCESS - - PIVs intact. DVT PROPHYLAXIS - - SCDs. Holding anticoagulation in the setting of pericardial effusion. Thank you for allowing us to be part of this patient's care. Suspect downgrade from ICU level of care later today pending Echo to assess pericardial effusion. Please refer to Dr. Chatman's documentation for any further recommendations. Admission and Anticipated Discharge Date Admission Date: August 14, 2020 Supervising Physician Co-Signing Physician Notes Dr. Patel was the resident-physician during care of patient. I separately evaluated patient for leblanc portions of the history and the exam. I was present during the critical portion of medical decision making, and I discussed the case with the resident. I generally agree with the findings and plan except for any additions/exceptions noted. Patient seen and examined at bedside. No acute distress. Overnight patient went into A. fib with RVR. She got push of metoprolol followed by a push of diltiazem. Started on amiodarone drip. Currently in sinus rhythm. At the time of examination patient denies any chest discomfort, no shortness of breath. She is able to tolerate diet. No nausea or vomiting. No headache, no dizziness. Troponins are trending down. Patient went to Rehab Manager again on 08/14/2020 and stents were placed in the circumflex and LAD. Patient's Walter vas score is 3. She will need anticoagulation but given that she had mild pericardial effusion we will hold onto anticoagulation for the time being. Cardiology on board. Hypophosphatemia being replaced. Please note the above document was generated using voice recognition software. It may contain grammatical, syntax or spelling errors.Any formal questions or concerns about the content, text or information contained within the body of this dictation should be directly addressed to the provider for clarification. Subjective Overnight patient had mild hypertension that improved with administration of home prn Ativan dosing. Had episode of AFib with RVR confirmed by EKG, received IV Lopressor and IV Cardizem pushes, and was placed on amiodarone drip with return to normal HR. Review of Systems Review of Systems: All systems reviewed & are unremarkable except as noted in HPI & below Constitutional: no fever, no chills and no malaise Respiratory: no cough and no dyspnea Cardiovascular: + chest pain (described as "soreness", decreased compared to yesterday); no palpitations and no edema Gastrointestinal: no abdominal pain, no constipation and no diarrhea/loose stools Genitourinary: no dysuria and no hematuria Physical Exam Physical Exam: VITAL SIGNS - Vital signs and nursing notes were reviewed. GENERAL - 69 yo F, well developed, well nourished, in no acute distress. SKIN - Without rashes. HEAD - NC/AT. EYES - PERRL. Sclera anicteric. Palpebral conjunctiva pink and moist with no injection noted. EARS - No deformities of external structures noted on gross examination bilaterally. NOSE - Midline and without cyanosis. No epistaxis or purulent drainage noted. MOUTH/OROPHARYNX - No perioral cyanosis. NECK - Supple to palpation. No nuchal rigidity. LUNGS - Mild bilateral basilar crackles, no wheezes. CARDIAC - Regular rate and rhythm. No murmur, rubs, or gallops appreciated. ABDOMEN - Soft, nontender, nondistended, normal bowel sounds. EXTREMITIES - No clubbing or peripheral cyanosis. No pretibial edema present. Radial and dorsalis pedis pulses palpated bilaterally. NEUROLOGIC - No focal neurological deficits noted on exam. Results & Data Results & Data ([facility]) Vital Signs (Past 12 Hours) Vital Signs Pulse Resp BP Pulse Ox 08/15/20 06:49 83 25 H 133/94 97 08/15/20 06:24 150 H 141/107 H 08/15/20 06:00 160 H 23 139/117 H 97 08/15/20 05:50 130 H 17 141/107 H 96 08/15/20 05:00 68 22 91 08/15/20 04:50 66 21 166/101 H 91 08/15/20 04:00 74 17 93 08/15/20 03:49 72 24 136/87 90 08/15/20 03:00 70 22 90 08/15/20 02:49 67 22 140/77 91 08/15/20 02:00 70 21 90 08/15/20 01:49 68 21 148/87 H 92 08/15/20 01:00 65 21 91 08/15/20 00:49 67 21 139/95 91 08/15/20 00:00 67 20 92 08/14/20 23:50 63 21 149/95 H 93 08/14/20 23:00 67 22 94 08/14/20 22:49 64 16 170/100 H 94 08/14/20 22:00 65 21 93 08/14/20 21:50 68 21 93 08/14/20 21:00 69 20 93 08/14/20 20:49 72 18 158/92 H 93 08/14/20 20:17 67 22 140/81 93 08/14/20 20:00 71 24 94 08/14/20 19:49 71 27 H 140/81 94 Resident Activity Tracking Resident Involvement: Resident Care Provided Care Provided: Adult Hospital Medicine
[2020-08-15] MEDS: ASPIRIN 81 MG ECTAB PO SCH (08:07)
[2020-08-15] MEDS: amLODIPine BESYLATE 5 MG TAB PO SCH (08:07)
[2020-08-15] MEDS: ROSUVASTATIN CALCIUM 20 MG TAB PO SCH (08:07)
[2020-08-15] MEDS: PRASugrel TAB 10 MG TAB PO SCH (08:07)
[2020-08-15] MEDS: CITALOPRAM 20 MG TAB PO SCH (08:07)
[2020-08-15] MEDS: PANTOprazole 40 MG TAB PO SCH (08:07)
[2020-08-15] MEDS: LOSARTAN POTASSIUM 50 MG TAB PO SCH (08:08)
[2020-08-15] MEDS ORDERED: POTASSIUM PHOS 3 MMOL/1 ML INFUSION IV STA (09:01)
[2020-08-15] MEDS ORDERED: POTASSIUM PHOSPHATE 15 MMOL in SODIUM CHLORIDE 0.9% 250 ML IV ONE (09:15)
--- NOTE | 2020-08-15 09:38 | Cardiology Progress Note ---
Date of Service August 15, 2020 Assessment & Plan (1) Multi-vessel coronary artery stenosis: s/p Complex RCA PCI, 3 Royal 08/13/20 Returned to color laboratory technician for staged Royal to LAD and Cx 08/14/20. Continue ASA 81 mg. Transition to plavix 75 mg in am, given similar mechanism of action as Prasugrel can start clopidogrel 75 mg without loading dose. Repeat EKG today and in am. (2) Acute myocardial infarction: Due to jailed PLB of RCA. RCA stents patient on repeat angiography. Troponin trending down. Angina resolved. (3) Pericardial effusion: small residual pericardial effusion on repeat echo today 08/15/20. BP stable. (4) Hypertension: Continue metoprolol , losartan. Amlodipine HCTZ on hold post contrast x 2. 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 IV amiodarone for now. No anticoagulation given pericardial effusion DVT prophylaxis: SCDs Stable for PCU . Patient to remain in hospital. [facility] consulted for additional management, input appreciated. Admission and Anticipated Discharge Date Admission Date: August 14, 2020 Subjective Rosa is seen in follow up this am. She feels well. Only residual chest pain is noted with deep inspiration. This am at 5:28 , new onset atrial fibrillation was observed, IV amiodarone was since started and she is now in SR in the 60s. She was sleeping at time of AF and unaware. BP stable, most recent 138/92. Review of Systems Review of Systems: All systems reviewed & are unremarkable except as noted in HPI & below Physical Exam Physical Exam: Temp Pulse Resp BP Pulse Ox 36.3 C L 67 27 H 131/99 98 08/14/20 13:23 08/15/20 08:00 08/15/20 07:50 08/15/20 07:50 08/15/20 07:50 Constitutional: WD/WN, vitals as above Respiratory: normal respiratory effort, lungs clear to auscultation Cardiovascular: RRR, no murmur, no edema Vessels: no JVD Extremities: no edema Gastrointestinal (Abdomen): normal bowel sounds, soft, nontender, no hepatosplenomegaly Neurologic: PERRL, EOMI, accommodation nl, no face palsy, no dysarthria Results & Data ([facility]) Vital Signs (Past 12 Hours) Vital Signs Pulse Resp BP Pulse Ox 08/15/20 08:00 67 08/15/20 07:50 111 H 27 H 131/99 98 08/15/20 06:49 83 25 H 133/94 97 08/15/20 06:24 150 H 141/107 H 08/15/20 06:00 160 H 23 139/117 H 97 08/15/20 05:50 130 H 17 141/107 H 96 08/15/20 05:00 68 22 91 08/15/20 04:50 66 21 166/101 H 91 08/15/20 04:00 74 17 93 08/15/20 03:49 72 24 136/87 90 08/15/20 03:00 70 22 90 08/15/20 02:49 67 22 140/77 91 08/15/20 02:00 70 21 90 08/15/20 01:49 68 21 148/87 H 92 08/15/20 01:00 65 21 91 08/15/20 00:49 67 21 139/95 91 08/15/20 00:00 67 20 92 08/14/20 23:50 63 21 149/95 H 93 08/14/20 23:00 67 22 94 08/14/20 22:49 64 16 170/100 H 94 08/14/20 22:00 65 21 93 08/14/20 21:50 68 21 93 Laboratory Results Cardiac Enzymes 08/14/20 08/15/20 Range/Units 13:41 04:34 Troponin I 36.600 H* 16.400 H* (0-0.045) ng/ml Coagulation 08/14/20 Range/Units 13:41 APTT > 139.0 H* (21.0-31.0) Seconds Lipids 08/14/20 Range/Units 13:41 Triglycerides 61 (0-150) mg/dl Cholesterol 117 (0-200) mg/dl HDL Cholesterol 58 mg/dl Cholesterol/HDL Ratio 2 CBC 08/15/20 Range/Units 04:34 WBC 12.65 H (4.8-10.8) K/uL RBC 3.63 L (4.2-5.4) M/uL Hgb 12.2 (12.0-16.0) g/dL Hct 35.6 L (37-47) % Plt Count 169 (130-400) K/uL Neut # (Auto) 8.62 H (1.4-6.5) K/uL Lymph # (Auto) 2.51 (1.2-3.4) K/uL Coles # (Auto) 1.47 H (0.11-0.59) K/uL Eos # (Auto) 0.02 (0-0.5) K/uL Baso # (Auto) 0.01 (0-0.2) K/uL Comprehensive Metabolic Panel 08/15/20 Range/Units 04:34 Sodium 134 L (136-145) mmol/L Potassium 3.9 (3.5-5.1) mmol/L Chloride 105 (98-107) mmol/L Carbon Dioxide 26 (21-32) mmol/L BUN 22 H (7-18) mg/dl Creatinine 0.89 (0.6-1.2) mg/dl Glucose 104 H (70-99) mg/dl Calcium 7.9 L (8.5-10.1) mg/dl Albumin 3.1 L (3.4-5.0) gm/dl Intake and Output 08/14/20 08/15/20 08/15/20 22:59 06:59 14:59 Intake Total 1000.555 / 1814.155 Balance 1000.555 / 1814.155 Intake: IV 1000.555 / 1814.155 NEXTERONE / D5W 360 mg In 200 0.555 / 0.555 ml @ 1 MG/MIN 33.333 mls/hr IV ONE ONE Rx#:[id number] Nss 1000ML 1,000 ml @ 100 mls/ 1000 / 1000 hr IV .Q10H SAM Rx#:[id number]
--- NOTE | 2020-08-15 10:19 | Billing Data ---
Date of Service August 15, 2020 Coding Level of Care Code 69213 Subseq Hosp Care Lvl 3
[2020-08-15] MEDS: AMIODARONE / D5W 360 MG/200 ML BAG IV SCH ×2 (11:35→23:22)
--- NOTE | 2020-08-15 11:44 | Communication Note ---
Date of Service: August 15, 2020 EKG Reviewed. Stable , improved compared to pre cath baseline.
--- NOTE | 2020-08-15 12:57 | Electrocardiogram Report ---
Test Reason : Blood Pressure : / mmHG Vent. Rate : 060 BPM Atrial Rate : 060 BPM P-R Int : 122 ms QRS Dur : 076 ms QT Int : 414 ms P-R-T Axes : 043 058 -33 degrees QTc Int : 414 ms Normal sinus rhythm T wave abnormality, consider inferolateral ischemia Abnormal ECG When compared with ECG of 14-AUG-2020 14:53, Premature atrial complexes are no longer Present Confirmed by Jorge Waters [id number]) on 08/15/2020 12:57:10 PM Referred By: Jassi Lambert Confirmed By:Jorge Waters
[2020-08-16 05:08] LABS: Hematocrit (blood only) 32.9 % (37-47); Hemoglobin 11.1 g/dL (12.0-16.0); Mean Corpuscular Hemoglobin 32.7 pg (25-34); Mean Corpuscular Hgb Conc 33.7 g/dL (32-36); Mean Corpuscular Volume 97.1 fL (80-100); Mean Platelet Volume 10.7 fL (7.4-10.4); Platelet Count 137 K/uL (130-400); RDW Coefficient of Variation 12.7 % (11.5-14.5); RDW Standard Deviation 44.8 fL (36.4-46.3); Red Blood Count 3.39 M/uL (4.2-5.4); White Blood Count 11.04 K/uL (4.8-10.8)
[2020-08-16 05:37] LABS: Creatinine Clr Calc Pharmacy 51.4 ml/min; Est GFR (African American) 89.1; Est GFR (Non-African American) 76.9; Magnesium 2.1 mg/dl (1.8-2.4); Potassium 4.9 mmol/L (3.5-5.1)
[2020-08-16] MEDS: LOSARTAN POTASSIUM 50 MG TAB PO SCH (07:40)
[2020-08-16] MEDS: CITALOPRAM 20 MG TAB PO SCH (07:41)
[2020-08-16] MEDS: amLODIPine BESYLATE 5 MG TAB PO SCH (07:41)
[2020-08-16] MEDS: METOPROLOL SUCC 50MG EXT REL TAB PO SCH (07:41)
[2020-08-16] MEDS: PANTOprazole 40 MG TAB PO SCH (07:41)
[2020-08-16] MEDS: ASPIRIN 81 MG ECTAB PO SCH (07:41)
[2020-08-16] MEDS: ROSUVASTATIN CALCIUM 20 MG TAB PO SCH (07:41)
[2020-08-16] MEDS: CLOPIDOGREL BISULFATE 75 MG TAB PO SCH (07:41)
[2020-08-16] MEDS ORDERED: SODIUM PHOSPHATE 3 MMOL/1 ML INFUSION IV STA (08:09)
[2020-08-16] MEDS ORDERED: POTASSIUM PHOSPHATE 15 MMOL in SODIUM CHLORIDE 0.9% 250 ML IV ONE (08:15)
[2020-08-16] MEDS ORDERED: SODIUM PHOSPHATE 15 MMOL in SODIUM CHLORIDE 0.9% 250 ML IV ONE (08:30)
[2020-08-16] MEDS: AMIODARONE 200 MG TAB PO SCH (10:35)
[2020-08-16] MEDS: hydroCHLOROthiazide 25 MG TAB PO SCH (10:35)
--- NOTE | 2020-08-16 10:41 | Critical Care Progress Note ---
Date of Service August 16, 2020 Assessment & Plan (1) New onset a-fib: --New onset A. fib Rate controlled On amiodarone drip Transition to p.o. amiodarone later today Anticoagulation on hold as the patient has pericardial effusion status post cath --NSTEMI s/p cardiac cath Complicated by pericardial effusion - 08/13 had successful PCI of proximal and mid-RCA with WEI. - 08/14 had staged PCI of LAD and LCx lesions. - EKG 08/13/2020: Mild ST elevation appreciated in leads II, III and aVF, ST depression with T wave inversions in the anterolateral leads especially V3-V4. - Repeat EKGs with resolution of ST changes and T wave inversions in anterior leads. Continue with beta-zoey, EMMANUELLE inhibitor, statin, aspirin, Plavix. Cardiology on board --S/p hypertensive emergency Patient was briefly started on nifedipine drip when she came to the ICU Has not required any drip for more than 48 hours Blood pressure is fairly controlled. Continue with aspirin, prasugrel, ARB and statin --History of anxiety Continue with citalopram --Prophylaxis VTE: IPC's GI: Protonix Lines: Peripheral Diet: Cardiac Plan: Patient is hemodynamically stable to be sent to a telemetry floor. Please note the above document was generated using voice recognition software. It may contain grammatical, syntax or spelling errors.Any formal questions or concerns about the content, text or information contained within the body of this dictation should be directly addressed to the provider for clarification. (2) Pericardial effusion: (3) Hypertensive emergency: (4) S/P right coronary artery (RCA) stent placement: Admission and Anticipated Discharge Date Admission Date: August 14, 2020 Subjective Patient seen and examined at bedside. No acute distress, no adverse events overnight. Denies any chest pain, no shortness of breath, no palpitation. Good appetite. No nausea or vomiting. Positive bowel movements. Review of Systems Review of Systems: All systems reviewed & are unremarkable except as noted in Subjective Physical Exam Physical Exam: Constitutional: No acute distress HEENT: EOMI, PERRLA Respiratory system: Decreased air entry bilaterally, mild crackles bilateral lower lobes, no wheeze, no rhonchi CVS: S1-S2 positive, no murmurs or gallops Abdomen: Soft, nontender, nondistended, positive bowel sounds x4 Extremities: +2 pulses bilaterally radialis/ dorsalis pedis, no cyanosis, no edema Neuro: Awake alert oriented x3 Psych: Normal mood and affect G/U: No Bell Skin: no rashes, warm and dry Lymphatic: no cervical or axillary lymphadenopathy Results & Data Results & Data ([facility]) Vital Signs (Past 12 Hours) Vital Signs Temp Pulse Resp BP Pulse Ox 08/16/20 06:00 72 20 95 08/16/20 05:50 69 20 154/88 H 96 08/16/20 05:00 63 18 97 08/16/20 04:50 59 L 17 122/74 97 08/16/20 04:13 36.6 C 79 33 H 93 08/16/20 04:00 73 18 95 08/16/20 03:50 67 18 139/77 97 08/16/20 03:00 62 18 95 08/16/20 02:50 62 17 142/79 H 97 08/16/20 02:00 60 18 95 08/16/20 01:50 62 18 114/71 96 08/16/20 01:00 62 20 95 08/16/20 00:50 64 19 123/68 92 08/16/20 00:00 36.6 C 61 17 96 08/15/20 23:50 63 13 148/83 H 96 08/15/20 23:00 63 19 96 08/15/20 22:50 60 17 139/74 97 08/16/20 05:00 08/16/20 05:00 Coding Level of Care Code 82533 Subseq Hosp Care Lvl 3 Diagnoses New onset a-fib I48.91 Pericardial effusion I31.3 Hypertensive emergency I16.1 S/P right coronary artery (RCA) stent placement Z95.5
--- NOTE | 2020-08-16 11:47 | Cardiology Progress Note ---
Date of Service August 16, 2020 Assessment & Plan (1) Multi-vessel coronary artery stenosis: s/p Complex RCA PCI, 3 drug-eluting stents 08/13/20 Returned to warehouse general laborer for staged drug-eluting stents to LAD and circumflex coronary 08/14/20. Continue ASA 81 mg. Transitioned to plavix 75 mg am of 08/16/20, given similar mechanism of action as Prasugrel can start clopidogrel 75 mg without loading dose. Patient was felt to have post procedure myocardial infarction due to jailing of the right posterior lateral branch of the right coronary artery at time of initial PCI. Patency of her coronary stents was confirmed at time of repeat coronary angiography, prior to staged PCI of the left anterior descending and circumflex coronaries. Troponins trended down. No angina present. (2) Hypertension: Improved. Now on amlodipine, which is a new medication. Renal function remains stable, resume prior to hospital hydrochlorothiazide 12.5 mg. Potassium 4.9 today, will repeat tomorrow. Continue metoprolol. (3) Anxiety: Stable, as needed lorazepam ordered. She tolerated this earlier this hospital stay without resultant delirium. (4) Paroxysmal atrial fibrillation: Brief episode of asymptomatic atrial fibrillation (new onset) 5:28 AM, 08/15/2020, with conversion back to sinus rhythm after receiving a bolus of IV diltiazem, oral metoprolol, amiodarone infusion. In an effort to avoid bleeding risk with anticoagulation, opting for amiodarone therapy (short-term) in an effort to maintain sinus rhythm. Discontinue IV amiodarone 08/16/2020, start oral amiodarone 200 mg daily. (5) Pericardial effusion: Patient did not have a pericardial effusion noted at this time of recent outpatient stress echocardiogram on 08/11/2020. The small circumferential pericardial effusion is therefore felt to be post procedure, likely due to transient coronary micro perforation at time of PCI, or a Andreina syndrome. Improved on follow-up echo yesterday. Avoiding systemic anticoagulation. DVT prophylaxis: Increase ambulation as tolerated. Disposition: Stable for transfer to PCU Negative COVID-19 screen within the [employer] system on 08/11/2020, I printed the result, and I will place it on her chart. Admission and Anticipated Discharge Date Admission Date: August 14, 2020 Subjective Patient seen in follow-up. She denies chest discomfort or shortness of breath this morning. Her blood pressure had trended up first thing this morning, but has improved in the meantime and she has received her morning medications. No additional atrial fibrillation has been noted on telemetry since the brief episode that occurred at 5:28 AM on 08/15/2020. Most recent EKG remains stable with repolarization changes in the inferior lateral leads that are actually much improved compared to her previous pre and post cath baselines. Review of Systems Review of Systems: All systems reviewed & are unremarkable except as noted in HPI & below Physical Exam Physical Exam: Temp Pulse Resp BP Pulse Ox 36.6 C 72 20 154/88 H 95 08/16/20 04:13 08/16/20 06:00 08/16/20 06:00 08/16/20 05:50 08/16/20 06:00 Constitutional: WD/WN, vitals as above Respiratory: normal respiratory effort, lungs clear to auscultation Cardiovascular: Rate/Rhythm: regular rhythm Heart Sounds: no murmur Vessels: no JVD Extremities: no edema Gastrointestinal (Abdomen): normal bowel sounds, soft, nontender, no hepatosplenomegaly Neurologic: PERRL, EOMI, accommodation nl, no face palsy, no dysarthria Results & Data ([facility]) Vital Signs (Past 12 Hours) Vital Signs Temp Pulse Resp BP Pulse Ox 08/16/20 06:00 72 20 95 08/16/20 05:50 69 20 154/88 H 96 08/16/20 05:00 63 18 97 08/16/20 04:50 59 L 17 122/74 97 08/16/20 04:13 36.6 C 79 33 H 93 08/16/20 04:00 73 18 95 08/16/20 03:50 67 18 139/77 97 08/16/20 03:00 62 18 95 08/16/20 02:50 62 17 142/79 H 97 08/16/20 02:00 60 18 95 08/16/20 01:50 62 18 114/71 96 08/16/20 01:00 62 20 95 08/16/20 00:50 64 19 123/68 92 08/16/20 00:00 36.6 C 61 17 96 08/15/20 23:50 63 13 148/83 H 96 Laboratory Results CBC 08/16/20 Range/Units 05:00 WBC 11.04 H (4.8-10.8) K/uL RBC 3.39 L (4.2-5.4) M/uL Hgb 11.1 L (12.0-16.0) g/dL Hct 32.9 L (37-47) % Plt Count 137 (130-400) K/uL Comprehensive Metabolic Panel 08/16/20 Range/Units 05:00 Sodium 136 (136-145) mmol/L Potassium 4.9 D (3.5-5.1) mmol/L Chloride 105 (98-107) mmol/L Carbon Dioxide 30 (21-32) mmol/L BUN 13 (7-18) mg/dl Creatinine 0.79 (0.6-1.2) mg/dl Glucose 96 (70-99) mg/dl Calcium 8.0 L (8.5-10.1) mg/dl Intake and Output 08/15/20 08/16/20 08/16/20 22:59 06:59 14:59 Intake Total 196.782 / 651.227 590.102 / 590.102 Balance 196.782 / 651.227 590.102 / 590.102 Intake: IV 196.782 / 651.227 190.102 / 190.102 NEXTERONE / D5W 360 mg In 200 196.782 / 196.782 190.102 / 190.102 ml @ 0.5 MG/MIN 16.667 mls/hr IV .Q12H SAM Rx#:[id number] Oral 400 / 400 Other: # Unmeasured Voids 1 1 1
[2020-08-16 12:28] LABS: Hematocrit (blood only) 33.4 % (37-47); Hemoglobin 11.3 g/dL (12.0-16.0)
--- NOTE | 2020-08-16 16:47 | Communication Note ---
Date of Service: August 16, 2020 Unable to reach pt's significant other by phone yesterday or today. Called Daughter, Minal today phone [phone] updated her.
--- NOTE | 2020-08-16 17:03 | Hospitalist Progress Note ---
Date of Service August 16, 2020 Assessment & Plan (1) New onset a-fib: New onset A. fib (10 AM), now in sinus rhythm, started on PO amiodarone per cardiology Uncontrolled hypertension - HCTZ resumed, amlodipine started - per cardiology service Recent AMI, multivessel CAD on diagnostic cardiac catheterization, s/p Complex RCA PCI, 3 drug-eluting stents 08/13/20 and staged drug-eluting stents to LAD and circumflex coronary 08/14/20.- ASA 81 mg, Plavix 75 mg - per cardiology Pt continues to have occasional chest discomfort, however no shortness of breath, dizziness, overall comfortable Pericardial effusion - small circumferential pericardial effusion, likely post procedure, due to transient coronary micro perforation at time of PCI, or a Andreina syndrome. Monitored closely by cardiology service. Follow up echo showing improvement. No systemic anticoagulation. Tobacco use, counseled pt extensively on tobacco use cessation - discussed contacting 1 [employer] now, free smoke cessation line upon discharge. At this point pt feels she is ready to quit smoking and does not need any nicotine supplements. Chronic hyponatremia, monitor Anxiety disorder, stable as per patient, Analgesia, anxiolytics as needed DVT prophylaxis. SCDs RE post PCI pericardial effusion Admission and Anticipated Discharge Date Admission Date: August 14, 2020 Subjective Pt is sitting up in chair, in NAD. Breathing comfortably on room air. Seen in follow up for med. management. Pt denies any shortness of breath, but reports occasional substernal chest discomfort. No fever, chills, lightheadedness or dizziness. Able to ambulate w/o difficulty. Counselled extensively on tobacco use cessation. Pt willing to quit smoking. Review of Systems Review of Systems: All systems reviewed & are unremarkable except as noted in HPI & below Constitutional: no fever and no chills Respiratory: no cough and no dyspnea Cardiovascular: + chest pain (occasional substernal chest discomfort); no palpitations and no edema Gastrointestinal: no abdominal pain, no nausea and no vomiting Physical Exam Physical Exam: GENERAL: WD/WN female sitting up in chair, in no respiratory distress, breathing comfortably on RA HEENT: NC/AT, pink palpebral conjunctivae, no ptosis NECK : Supple, no tenderness CHEST : CTAB, no wheezing, rhonchi, crackles noted HEART : RRR, no obvious murmurs ABDOMEN: positive bowel sounds, nontender, nondistended EXTREMITIES : No LE swelling/tenderness, moves extremities spontaneously SKIN: Normal color, warm NEUROLOGIC : alert and oriented x3, no facial asymmetry, moves extremities spontaneously Results & Data Results & Data ([facility]) Vital Signs (Past 12 Hours) Vital Signs Temp Pulse Resp BP Pulse Ox 08/16/20 15:30 36.7 C 61 18 141/78 H 93 08/16/20 12:30 61 16 08/16/20 12:00 61 16 08/16/20 11:30 63 18 08/16/20 11:00 64 16 08/16/20 10:42 59 L 16 129/64 08/16/20 10:30 60 22 94 08/16/20 10:00 66 16 96 08/16/20 09:50 60 18 115/64 95 08/16/20 09:30 64 21 96 08/16/20 09:00 68 17 97 08/16/20 08:50 63 17 115/78 96 08/16/20 08:30 67 20 96 08/16/20 08:00 36.5 C 71 20 96 08/16/20 07:59 69 20 117/65 96 08/16/20 07:30 77 20 95 08/16/20 07:00 58 L 17 97 08/16/20 06:50 67 14 116/72 98 08/16/20 06:45 60 17 96 08/16/20 06:00 72 20 95 08/16/20 05:50 69 20 154/88 H 96 08/16/20 05:00 63 18 97 Laboratory Results 08/17/20 08/17/20 08/16/20 Range/Units 04:26 04:26 12:06 WBC 9.26 (4.8-10.8) K/uL RBC 3.23 L (4.2-5.4) M/uL Hgb 10.7 L 11.3 L (12.0-16.0) g/dL Hct 31.2 L 33.4 L (37-47) % MCV 96.6 (80-100) fL MCH 33.1 (25-34) pg MCHC 34.3 (32-36) g/dL RDW Std Deviation 43.9 (36.4-46.3) fL RDW Coeff of [place] 12.4 (11.5-14.5) % Plt Count 149 (130-400) K/uL MPV 11.6 H (7.4-10.4) fL Sodium 138 (136-145) mmol/L Potassium 3.5 D (3.5-5.1) mmol/L Chloride 106 (98-107) mmol/L Carbon Dioxide 28 (21-32) mmol/L Anion Gap 4.0 (3-11) BUN 15 (7-18) mg/dl Creatinine 0.64 (0.6-1.2) mg/dl Est Cr Clr Drug Dosing 63.5 ml/min Est GFR ( Amer) 106.3 Est GFR (Non-Af Amer) 91.7 BUN/Creatinine Ratio 22.7 H (10-20) Glucose 80 (70-99) mg/dl Calcium 8.2 L (8.5-10.1) mg/dl
[2020-08-16] MEDS ORDERED: SIMETHICONE 80 MG CHEW PO ONE (22:35)
[2020-08-16] MEDS ORDERED: POLYETHYLENE (MIRALAX) 17 GM PACK PO STA (22:39)
[2020-08-17 05:02] LABS: Hematocrit (blood only) 31.2 % (37-47); Hemoglobin 10.7 g/dL (12.0-16.0); Mean Corpuscular Hemoglobin 33.1 pg (25-34); Mean Corpuscular Hgb Conc 34.3 g/dL (32-36); Mean Corpuscular Volume 96.6 fL (80-100); Mean Platelet Volume 11.6 fL (7.4-10.4); Platelet Count 149 K/uL (130-400); RDW Coefficient of Variation 12.4 % (11.5-14.5); RDW Standard Deviation 43.9 fL (36.4-46.3); Red Blood Count 3.23 M/uL (4.2-5.4); White Blood Count 9.26 K/uL (4.8-10.8)
[2020-08-17 05:34] LABS: BUN Creatinine Ratio 22.7 (10-20); Calcium 8.2 mg/dl (8.5-10.1); Creatinine Clr Calc Pharmacy 63.5 ml/min; Est GFR (African American) 106.3; Est GFR (Non-African American) 91.7; Potassium 3.5 mmol/L (3.5-5.1)
--- NOTE | 2020-08-17 06:32 | Electrocardiogram Report ---
Test Reason : Blood Pressure : / mmHG Vent. Rate : 064 BPM Atrial Rate : 064 BPM P-R Int : 140 ms QRS Dur : 078 ms QT Int : 432 ms P-R-T Axes : 038 065 -67 degrees QTc Int : 445 ms Sinus rhythm with Premature atrial complexes T wave abnormality, consider inferolateral ischemia Abnormal ECG When compared with ECG of 15-AUG-2020 10:36, Premature atrial complexes are now Present Confirmed by Spencer Marie ([id number]) on 08/17/2020 6:32:10 AM Referred By: Jassi Lambert Confirmed By:Spencer Marie
[2020-08-17] MEDS ORDERED: POTASSIUM CHLORIDE 10 MEQ TABCR PO STA (07:08)
[2020-08-17] MEDS: PANTOprazole 40 MG TAB PO SCH (08:42)
[2020-08-17] MEDS: ASPIRIN 81 MG ECTAB PO SCH (08:42)
[2020-08-17] MEDS: AMIODARONE 200 MG TAB PO SCH (08:42)
[2020-08-17] MEDS: CITALOPRAM 20 MG TAB PO SCH (08:43)
[2020-08-17] MEDS: ROSUVASTATIN CALCIUM 20 MG TAB PO SCH (08:43)
[2020-08-17] MEDS: amLODIPine BESYLATE 5 MG TAB PO SCH (08:43)
[2020-08-17] MEDS: CLOPIDOGREL BISULFATE 75 MG TAB PO SCH (08:43)
[2020-08-17] MEDS: LOSARTAN POTASSIUM 50 MG TAB PO SCH (08:43)
[2020-08-17] MEDS: METOPROLOL SUCC 50MG EXT REL TAB PO SCH (08:43)
[2020-08-17] MEDS: hydroCHLOROthiazide 25 MG TAB PO SCH (08:44)
[2020-08-17] MEDS ORDERED: DOCUSATE SODIUM/SENNA 50/8.6MG TAB PO SCH (09:00)
--- NOTE | 2020-08-17 10:31 | Hospitalist Progress Note ---
Date of Service August 17, 2020 Assessment & Plan (1) New onset a-fib: New onset A. fib (10 AM), now in sinus rhythm, started on PO amiodarone per cardiology Uncontrolled hypertension - HCTZ resumed, amlodipine started - per cardiology service Recent AMI, multivessel CAD on diagnostic cardiac catheterization, s/p Complex RCA PCI, 3 drug-eluting stents 08/13/20 and staged drug-eluting stents to LAD and circumflex coronary 08/14/20.- ASA 81 mg, Plavix 75 mg - per cardiology Pt denies any chest pain,shortness of breath, dizziness, overall feels comfortable Pericardial effusion - small circumferential pericardial effusion, likely post procedure, due to transient coronary micro perforation at time of PCI, or a Andreina syndrome. Monitored closely by cardiology service. Follow up echo showing improvement. No systemic anticoagulation. Follow up outpt echo and cardiology appointment arranged. Tobacco use, counseled pt extensively on tobacco use cessation - discussed contacting 1 [employer] smoke cessation line upon discharge. At this point pt feels she is ready to quit smoking and does not need any nicotine supplements. Chronic hyponatremia, monitor Anxiety disorder, stable as per patient, Analgesia, anxiolytics as needed DVT prophylaxis. SCDs RE post PCI pericardial effusion Pt received flu vaccine while inpt. Admission and Anticipated Discharge Date Admission Date: August 14, 2020 Subjective Pt is sitting up in bed in no acute distress. Pt seen in follow up for med. management. Currently feeling well and denies any chest pain. Also denies any shortness of breath, palpitations, or dizziness with ambulation. Review of Systems Review of Systems: All systems reviewed & are unremarkable except as noted in HPI & below Constitutional: no fever and no chills Respiratory: no cough and no dyspnea Cardiovascular: no chest pain and no palpitations Gastrointestinal: no abdominal pain, no nausea and no vomiting Physical Exam Physical Exam: GENERAL: WD/WN female sitting up in chair, in no respiratory distress, breathing comfortably on RA HEENT: NC/AT, pink palpebral conjunctivae, no ptosis NECK : Supple, no tenderness CHEST : CTAB, no wheezing, rhonchi, crackles noted HEART : RRR, no obvious murmurs ABDOMEN: positive bowel sounds, nontender, nondistended EXTREMITIES : No LE swelling/tenderness, moves extremities spontaneously SKIN: Normal color, warm NEUROLOGIC : alert and oriented x3, no facial asymmetry, moves extremities spontaneously Results & Data Results & Data ([facility]) Vital Signs (Past 12 Hours) Vital Signs Temp Pulse Pulse Resp BP BP Pulse Ox 08/17/20 08:12 36.8 C 60 19 129/67 94 08/17/20 04:40 36.7 C 64 17 138/72 91 08/16/20 23:40 36.7 C 63 25 H 145/79 H 97 Laboratory Results 08/17/20 08/17/20 08/16/20 Range/Units 04:26 04:26 12:06 WBC 9.26 (4.8-10.8) K/uL RBC 3.23 L (4.2-5.4) M/uL Hgb 10.7 L 11.3 L (12.0-16.0) g/dL Hct 31.2 L 33.4 L (37-47) % MCV 96.6 (80-100) fL MCH 33.1 (25-34) pg MCHC 34.3 (32-36) g/dL RDW Std Deviation 43.9 (36.4-46.3) fL RDW Coeff of [place]ina 12.4 (11.5-14.5) % Plt Count 149 (130-400) K/uL MPV 11.6 H (7.4-10.4) fL Sodium 138 (136-145) mmol/L Potassium 3.5 D (3.5-5.1) mmol/L Chloride 106 (98-107) mmol/L Carbon Dioxide 28 (21-32) mmol/L Anion Gap 4.0 (3-11) BUN 15 (7-18) mg/dl Creatinine 0.64 (0.6-1.2) mg/dl Est Cr Clr Drug Dosing 63.5 ml/min Est GFR ( Amer) 106.3 Est GFR (Non-Af Amer) 91.7 BUN/Creatinine Ratio 22.7 H (10-20) Glucose 80 (70-99) mg/dl Calcium 8.2 L (8.5-10.1) mg/dl Medications Administered Current Inpatient Medications Acetaminophen (Acetaminophen 325 Mg Tab) 650 mg PO Q4H PRN PRN Reason: MILD Pain (Scale 1,2,3) Stop: 09/12/20 12:42 Last Admin: 08/13/20 13:14 Dose: 650 mg Documented by: Amiodarone HCl (Amiodarone 200 Mg Tab) 200 mg PO [facility] Stop: 09/15/20 09:59 Last Admin: 08/17/20 08:42 Dose: 200 mg Documented by: Amlodipine Besylate (Amlodipine Besylate 5 Mg Tab) 5 mg PO [facility] Stop: 09/13/20 10:59 Last Admin: 08/17/20 08:43 Dose: 5 mg Documented by: Aspirin (Aspirin 81 Mg Ectab) 81 mg PO [facility] Stop: 09/13/20 08:59 Last Admin: 08/17/20 08:42 Dose: 81 mg Documented by: Citalopram Hydrobromide (Citalopram 20 Mg Tab) 20 mg PO DAILY [facility] Stop: 09/13/20 08:59 Last Admin: 08/17/20 08:43 Dose: 20 mg Documented by: Clopidogrel Bisulfate (Clopidogrel Bisulfate 75 Mg Tab) 75 mg PO [facility] Stop: 09/15/20 08:59 Last Admin: 08/17/20 08:43 Dose: 75 mg Documented by: Hydrochlorothiazide (Hydrochlorothiazide 25 Mg Tab) 12.5 mg PO [facility] Stop: 09/15/20 09:59 Last Admin: 08/17/20 08:44 Dose: 12.5 mg Documented by: Hydromorphone HCl (Hydromorphone Inj 0.5 Mg/0.5 Ml Syr) 0.25 mg IV Q3H PRN PRN Reason: Pain Stop: 08/29/20 06:48 Lorazepam (Ativan) 0.25 mg in 0.5 mls @ 0.5 mls/min IV Q4H PRN PRN Reason: Anxiety Stop: 09/14/20 06:04 Last Admin: 08/17/20 02:09 Dose: 0.5 mls/min Documented by: Lorazepam (Lorazepam 0.5 Mg Tab) 0.5 mg PO DAILY PRN PRN Reason: Anxiety Stop: 09/12/20 12:50 Last Admin: 08/13/20 14:07 Dose: 0.5 mg Documented by: Losartan Potassium (Losartan Potassium 50 Mg Tab) 100 mg PO [facility] Stop: 09/13/20 08:59 Last Admin: 08/17/20 08:43 Dose: 100 mg Documented by: Metoprolol Succinate (Metoprolol Succ 50mg Ext Rel Tab) 100 mg PO DAILY [facility] Stop: 09/14/20 06:09 Last Admin: 08/17/20 08:43 Dose: 100 mg Documented by: Nitroglycerin (Nitroglycerin Sl 0.4 Mg/Tab Tab) 0.4 mg SL PRN PRN PRN Reason: Chest Pain Stop: 09/12/20 12:42 Ondansetron HCl (Ondansetron Inj 2 Mg/Ml 2 Ml Vial) 4 mg IV Q6H PRN PRN Reason: Nausea And Vomiting Stop: 09/12/20 12:42 Last Admin: 08/14/20 21:14 Dose: 4 mg Documented by: Polyethylene Glycol (Polyethylene (Miralax) 17 Gm Pack) 17 gm PO DAILY PRN PRN Reason: Constipation Stop: 09/14/20 06:49 Rosuvastatin Calcium (Rosuvastatin Calcium 20 Mg Tab) 20 mg PO DAILY [facility] Stop: 09/13/20 08:59 Last Admin: 08/17/20 08:43 Dose: 20 mg Documented by: Senna/Docusate Sodium (Docusate Sodium/Senna 50/8.6mg Tab) 1 tab PO QAM [facility] Stop: 09/16/20 08:59 Last Admin: 08/17/20 10:01 Dose: 1 tab Documented by:
--- NOTE | 2020-08-17 10:54 | Cardiology Progress Note ---
Date of Service August 17, 2020 Assessment & Plan (1) Multi-vessel coronary artery stenosis: (1) Multi-vessel coronary artery stenosis: Patient had presented to the outpatient [facility] cardiology clinic on 08/11/2020 having been referred for an exercise stress echocardiogram for evaluation of symptoms consistent with exertional angina mid substernal chest discomfort that radiated down both of her arms. Stress echocardiogram was abnormal and suggestive of ischemia for she had been seen in same-day cardiology consultation by Dr. Lambert of our practice on 08/11/2020. She was referred for outpatient diagnostic cardiac catheterization which was performed by Dr. Tolentino on 08/13/20 with findings of three-vessel coronary heart disease. Based on her stress test results angiogram findings, the right coronary artery was addressed first and she underwent complex RCA PCI, with 3 drug-eluting stents 08/13/20. Patient was felt to have post procedure myocardial infarction due to jailing of the right posterior lateral branch of the right coronary artery at time of initial PCI. Patency of her coronary stents was confirmed at time of repeat coronary angiography on 08/14/20, prior to staged PCI of the left anterior descending and circumflex coronaries each addressed with a single drug eluting stent. Post procedure EKGs have trended toward improvement, actually improved compared to her previous baseline EKG. Today, 08/17/20, patient describes feeling well, no additional angina. She is to be discharged on aspirin 81 mg daily and clopidogrel 75 mg daily. She was transitioned from prasugrel to clopidogrel on 08/16/2020. Given multivessel, technically complex PCI, and at least 1 year of dual antiplatelet therapy, and perhaps longer given complex RCA anatomy. (2) Hypertension: Improved. Now on amlodipine, which is a new medication. (3) Anxiety: Stable. Continue prior to hospital treatment with Celexa and lorazepam. (4) Paroxysmal atrial fibrillation: Brief episode of asymptomatic atrial fibrillation (new onset) 5:28 AM, 08/15/2020, with conversion back to sinus rhythm after receiving a bolus of IV diltiazem, oral metoprolol, amiodarone infusion. In an effort to avoid bleeding risk with anticoagulation, opting for amiodarone therapy (short-term) in an effort to maintain sinus rhythm. Discontinued IV amiodarone 08/16/2020. Plan to discharge on short term oral amiodarone therapy 200 mg by mouth daily. (5) Pericardial effusion: Patient did not have a pericardial effusion noted at this time of recent outpatient stress echocardiogram on 08/11/2020. The small circumferential pericardial effusion is therefore felt to be a post procedural finding, likely due to transient coronary micro perforation at time of initial PCI, or a Andreina syndrome. Improved on follow-up echo echocardiogram 08/15/2020. Normal LVEF 60 to 65%. Avoiding systemic anticoagulation as above. (6) Seasonal influenza vaccine administered during hospital stay. DISPOSITION: Discharge to home. [facility]. Has outpatient follow-up visit already scheduled with Dr. Jassi Lambert, [facility] cardiology, 09/08/2020, 2 PM. Will arrange for limited echocardiogram for follow-up of pericardial effusion week of 08/25/20. Admission and Anticipated Discharge Date Admission Date: August 14, 2020 Subjective Patient seen in cardiology follow-up. She denies any chest discomfort or shortness of breath. Blood pressure was well controlled overnight last night. True reveals stable sinus rhythm in the 60s without recurrence of atrial fibrillation. Review of Systems Review of Systems: All systems reviewed & are unremarkable except as noted in HPI & below Physical Exam Physical Exam: Temp Pulse Resp BP Pulse Ox 36.8 C 60 19 129/67 94 08/17/20 08:12 08/17/20 08:12 08/17/20 08:12 08/17/20 08:12 08/17/20 08:12 Constitutional: WD/WN, vitals as above Respiratory: normal respiratory effort, lungs clear to auscultation Cardiovascular: RRR, no murmur, no edema Gastrointestinal (Abdomen): normal bowel sounds, soft, nontender, no hepatosplenomegaly Neurologic: PERRL, EOMI, accommodation nl, no face palsy, no dysarthria Results & Data ([facility]) Vital Signs (Past 12 Hours) Vital Signs Temp Pulse Pulse Resp BP BP Pulse Ox 08/17/20 08:12 36.8 C 60 19 129/67 94 08/17/20 04:40 36.7 C 64 17 138/72 91 08/16/20 23:40 36.7 C 63 25 H 145/79 H 97 Laboratory Results CBC 08/16/20 08/17/20 Range/Units 12:06 04:26 WBC 9.26 (4.8-10.8) K/uL RBC 3.23 L (4.2-5.4) M/uL Hgb 11.3 L 10.7 L (12.0-16.0) g/dL Hct 33.4 L 31.2 L (37-47) % Plt Count 149 (130-400) K/uL Comprehensive Metabolic Panel 08/17/20 Range/Units 04:26 Sodium 138 (136-145) mmol/L Potassium 3.5 D (3.5-5.1) mmol/L Chloride 106 (98-107) mmol/L Carbon Dioxide 28 (21-32) mmol/L BUN 15 (7-18) mg/dl Creatinine 0.64 (0.6-1.2) mg/dl Glucose 80 (70-99) mg/dl Calcium 8.2 L (8.5-10.1) mg/dl Intake and Output 08/16/20 08/17/20 08/17/20 22:59 06:59 14:59 Other: # Unmeasured Voids 2 1 Medications Administered Current Inpatient Medications Acetaminophen (Acetaminophen 325 Mg Tab) 650 mg PO Q4H PRN PRN Reason: MILD Pain (Scale 1,2,3) Stop: 09/12/20 12:42 Last Admin: 08/13/20 13:14 Dose: 650 mg Documented by: Amiodarone HCl (Amiodarone 200 Mg Tab) 200 mg PO [facility] Stop: 09/15/20 09:59 Last Admin: 08/17/20 08:42 Dose: 200 mg Documented by: Amlodipine Besylate (Amlodipine Besylate 5 Mg Tab) 5 mg PO [facility] Stop: 09/13/20 10:59 Last Admin: 08/17/20 08:43 Dose: 5 mg Documented by: Aspirin (Aspirin 81 Mg Ectab) 81 mg PO [facility] Stop: 09/13/20 08:59 Last Admin: 08/17/20 08:42 Dose: 81 mg Documented by: Citalopram Hydrobromide (Citalopram 20 Mg Tab) 20 mg PO DAILY [facility] Stop: 09/13/20 08:59 Last Admin: 08/17/20 08:43 Dose: 20 mg Documented by: Clopidogrel Bisulfate (Clopidogrel Bisulfate 75 Mg Tab) 75 mg PO [facility] Stop: 09/15/20 08:59 Last Admin: 08/17/20 08:43 Dose: 75 mg Documented by: Hydrochlorothiazide (Hydrochlorothiazide 25 Mg Tab) 12.5 mg PO QAM [facility] Stop: 09/15/20 09:59 Last Admin: 08/17/20 08:44 Dose: 12.5 mg Documented by: Hydromorphone HCl (Hydromorphone Inj 0.5 Mg/0.5 Ml Syr) 0.25 mg IV Q3H PRN PRN Reason: Pain Stop: 08/29/20 06:48 Lorazepam (Ativan) 0.25 mg in 0.5 mls @ 0.5 mls/min IV Q4H PRN PRN Reason: Anxiety Stop: 09/14/20 06:04 Last Admin: 08/17/20 02:09 Dose: 0.5 mls/min Documented by: Lorazepam (Lorazepam 0.5 Mg Tab) 0.5 mg PO DAILY PRN PRN Reason: Anxiety Stop: 09/12/20 12:50 Last Admin: 08/13/20 14:07 Dose: 0.5 mg Documented by: Losartan Potassium (Losartan Potassium 50 Mg Tab) 100 mg PO QAM [facility] Stop: 09/13/20 08:59 Last Admin: 08/17/20 08:43 Dose: 100 mg Documented by: Metoprolol Succinate (Metoprolol Succ 50mg Ext Rel Tab) 100 mg PO DAILY [facility] Stop: 09/14/20 06:09 Last Admin: 08/17/20 08:43 Dose: 100 mg Documented by: Nitroglycerin (Nitroglycerin Sl 0.4 Mg/Tab Tab) 0.4 mg SL PRN PRN PRN Reason: Chest Pain Stop: 09/12/20 12:42 Ondansetron HCl (Ondansetron Inj 2 Mg/Ml 2 Ml Vial) 4 mg IV Q6H PRN PRN Reason: Nausea And Vomiting Stop: 09/12/20 12:42 Last Admin: 08/14/20 21:14 Dose: 4 mg Documented by: Polyethylene Glycol (Polyethylene (Miralax) 17 Gm Pack) 17 gm PO DAILY PRN PRN Reason: Constipation Stop: 09/14/20 06:49 Rosuvastatin Calcium (Rosuvastatin Calcium 20 Mg Tab) 20 mg PO DAILY [facility] Stop: 09/13/20 08:59 Last Admin: 08/17/20 08:43 Dose: 20 mg Documented by: Senna/Docusate Sodium (Docusate Sodium/Senna 50/8.6mg Tab) 1 tab PO [facility] Stop: 09/16/20 08:59 Last Admin: 08/17/20 10:01 Dose: 1 tab Documented by:
--- NOTE | 2020-08-17 11:51 | Discharge Summary ---
Date of Service August 17, 2020 Discharge Data Consultations 08/13/20 12:46 Consult Cardiac Rehabilitation Routine 08/13/20 16:31 Consult Automated Weaver Routine 08/15/20 06:40 Consult Hospitalist Routine Procedures Performed Operation Date: 08/13/20 09:30 Actual Procedures s Cath, Left with Cors and Vent - Alex Tolentino DO s Cineradiography w/Routine Exam - Alex Tolentino DO p Drug Eluting Stent SGl Vessel - William Ramos MD Operation Date: 08/14/20 10:30 Actual Procedures p Drug Eluting Stent SGl Vessel - William Ramos MD s Drug Eluting Stent each ADDTL Vessel - William Ramos MD s Cath, Left with Cors and Vent - William Ramos MD s Cineradiography w/Routine Exam - William Rmaos MD Hospital Course (1) Multi-vessel coronary artery stenosis: (1) Multi-vessel coronary artery stenosis: Patient had presented to the outpatient [facility] cardiology clinic on 08/11/2020 having been referred for an exercise stress echocardiogram for evaluation of symptoms consistent with exertional angina mid substernal chest discomfort that radiated down both of her arms. Stress echocardiogram was abnormal and suggestive of ischemia for she had been seen in same-day cardiology consultation by Dr. Lambert of our practice on 08/11/2020. She was referred for outpatient diagnostic cardiac catheterization which was performed by Dr. Tolentino on 08/13/20 with findings of three-vessel coronary heart disease. Based on her stress test results angiogram findings, the right coronary artery was addressed first and she underwent complex RCA PCI, with 3 drug-eluting stents 08/13/20. Patient was felt to have post procedure myocardial infarction due to jailing of the right posterior lateral branch of the right coronary artery at time of initial PCI. Patency of her coronary stents was confirmed at time of repeat coronary angiography on 08/14/20, prior to staged PCI of the left anterior descending and circumflex coronaries each addressed with a single drug eluting stent. Post procedure EKGs have trended toward improvement, actually improved compared to her previous baseline EKG. Today, 08/17/20, patient describes feeling well, no additional angina. She is to be discharged on aspirin 81 mg daily and clopidogrel 75 mg daily. She was transitioned from prasugrel to clopidogrel on 08/16/2020. Given multivessel, technically complex PCI, and at least 1 year of dual antiplatelet therapy, and perhaps longer given complex RCA anatomy. (2) Hypertension: Improved. Now on amlodipine, which is a new medication. (3) Anxiety: Stable. Continue prior to hospital treatment with Celexa and lorazepam. (4) Paroxysmal atrial fibrillation: Brief episode of asymptomatic atrial fibrillation (new onset) 5:28 AM, 08/15/2020, with conversion back to sinus rhythm after receiving a bolus of IV diltiazem, oral metoprolol, amiodarone infusion. In an effort to avoid bleeding risk with anticoagulation, opting for amiodarone therapy (short-term) in an effort to maintain sinus rhythm. Discontinued IV amiodarone 08/16/2020. Plan to discharge on short term oral amiodarone therapy 200 mg by mouth daily. (5) Pericardial effusion: Patient did not have a pericardial effusion noted at this time of recent outpatient stress echocardiogram on 08/11/2020. The small circumferential per icardial effusion is therefore felt to be a post procedural finding, likely due to transient coronary micro perforation at time of initial PCI, or a Andreina syndrome. Improved on follow-up echo echocardiogram 08/15/2020. Normal LVEF 60 to 65%. Avoiding systemic anticoagulation as above. (6) Seasonal influenza vaccine administered during hospital stay. DISPOSITION: Discharge to home. Prescriptions sent to [facility] pharmacy. Has outpatient follow-up visit already scheduled with Dr. Jassi Lambert, [facility] cardiology, 09/08/2020, 2 PM. Will arrange for limited echocardiogram for follow-up of pericardial effusion week of 08/25/20.
--- NOTE | 2020-08-18 21:18 | Electrocardiogram Report ---
Test Reason : Blood Pressure : / mmHG Vent. Rate : 148 BPM Atrial Rate : 127 BPM P-R Int : 000 ms QRS Dur : 066 ms QT Int : 282 ms P-R-T Axes : 000 075 243 degrees QTc Int : 442 ms Poor data quality, interpretation may be adversely affected Atrial fibrillation with rapid ventricular response Abnormal ECG When compared with ECG of 14-AUG-2020 14:53, Atrial fibrillation has replaced Sinus rhythm Vent. rate has increased BY [address] now depressed in Anterior leads T wave inversion now evident in Anterior leads Confirmed by Spencer Marie ([id number]) on 08/18/2020 9:18:36 PM Referred By: Jassi Lambert Confirmed By:Spencer Marie
== END 2020-08-17 13:13 | disposition home or self-care (01) | DRG 246 ==
LOC: 2S 08:21 → CC 08:21 → 1E 17:44 → 2S 08-17 07:21

== ENCOUNTER 2020-10-21 17:02 | Observation (INO) ==
[2020-10-21 17:28] LABS: Basophils # (auto) 0.03 K/uL (0-0.2); Basophils % (auto) 0.3 %; Eosinophils # (auto) 0.24 K/uL (0-0.5); Hematocrit (blood only) 42.9 % (37-47); Hemoglobin 14.8 g/dL (12.0-16.0); Immature Granulocytes # (auto) 0.04 K/uL (0.00-0.02); Immature Granulocytes % (auto) 0.3 %; Lymphocytes # (auto) 2.02 K/uL (1.2-3.4); Lymphocytes % (auto) 17.2 %; Mean Corpuscular Hemoglobin 33.3 pg (25-34); Mean Corpuscular Hgb Conc 34.5 g/dL (32-36); Mean Corpuscular Volume 96.4 fL (80-100); Mean Platelet Volume 10.7 fL (7.4-10.4); Monocytes % (auto) 10.2 %; Neutrophils # (auto) 8.22 K/uL (1.4-6.5); Platelet Count 214 K/uL (130-400); RDW Coefficient of Variation 12.9 % (11.5-14.5); RDW Standard Deviation 45.4 fL (36.4-46.3); Red Blood Count 4.45 M/uL (4.2-5.4); White Blood Count 11.75 K/uL (4.8-10.8)
--- NOTE | 2020-10-21 17:29 | XRay Report ---
XR chest 1V portable HISTORY: 69 years-old Female Chest Pain . Acute atypical chest pain COMPARISON: Chest radiograph 08/13/2020 TECHNIQUE: Portable AP view the chest FINDINGS: Unchanged mild cardiomegaly. Coronary arterial stent. Calcified plaque of the thoracic aorta. There i s no pneumothorax, pleural effusion or overt pulmonary edema. Degenerative changes of the shoulders a nd spine. Mild mid thoracic levoscoliosis. IMPRESSION: No acute process. ACT 112: Negative or not required by law. The above report was generated using voice recognition software. It may contain grammatical, syntax o r spelling errors. Electronically signed by: Estevan Rush M.D. 10/21/2020 5:27 PM
[2020-10-21 17:43] LABS: D Dimer 460 ug/L FEU (0-500); INR 1.1 (0.9-1.1); Partial Thromboplastin Ratio 1.1; Partial Thromboplastin Time 30.8 Seconds (21.0-31.0); Prothrombin Time 11.4 Seconds (9.0-12.0)
[2020-10-21] MEDS ORDERED: ASPIRIN CHEW 324 MG PO STA (17:44)
[2020-10-21] MEDS ORDERED: NITROGLYCERIN SL 0.4 MG/TAB TAB SL STA (17:44)
[2020-10-21 17:46] LABS: Alanine Aminotransferase 40 U/L (12-78); Aspartate Aminotransferase 26 U/L (15-37); BUN Creatinine Ratio 13.8 (10-20); Blood Urea Nitrogen 14 mg/dl (7-18); Calcium 9.5 mg/dl (8.5-10.1); Carbon Dioxide 28 mmol/L (21-32); Chloride 98 mmol/L (98-107); Creatinine Clr Calc Pharmacy 47.4 ml/min; Est GFR (African American) 68.7; Est GFR (Non-African American) 59.3; Glucose 92 mg/dl (70-99); Lipase 127 U/L (73-393); Potassium 3.8 mmol/L (3.5-5.1); Sodium 133 mmol/L (136-145)
[2020-10-21 17:51] LABS: Alkaline Phosphatase 93 U/L (45-117); Bilirubin,Total 0.7 mg/dl (0.2-1); Creatine Kinase 139 U/L (26-192); Globulin 4.2 gm/dl (2.5-4.0); Total Protein 8.2 gm/dl (6.4-8.2); Troponin I < 0.015 ng/ml (0-0.045)
--- NOTE | 2020-10-21 17:55 | Emergency Department Note ---
Impression & Plan Substernal chest pain ED Provider Note INFORMANT: Patient ED PROVIDER(S): Jonah Blanco MD CHIEF COMPLAINT: Chest pain PLAN: Disposition: Admitted Condition: Good Outpatient prescription management: none Referral: None MEDICAL DECISION MAKING: Patient presented complaining of chest pain. She was given her aspirin and 1 sublingual nitroglycerin. Her ECG had T wave inversions inferiorly however these were present previously. Lateral changes noted previously were improved. Chest x-ray was unremarkable. Patient's CBC and chemistry panel were unremarkable. Slight leukocytosis however this was improved compared to prior values. The patient had a negative D-dimer. Troponin was negative. The patient had no change with nitro or aspirin. Given her cardiac history further management in the hospital was felt to most appropriate. Covid testing was performed and was negative. Consultation was made with the [facility] service. The case was discussed with Lizzy Price PA-C. The patient will be admitted by Dr. Leung. Triage Nursing notes reviewed and agree them. Vital Signs: reviewed and remarkable for hypertension Differential diagnosis: Cardiac ischemia, aortic dissection, pulmonary embolism, pneumothorax, pneumonia, pericarditis, myocarditis, esophageal rupture, GERD, cholecystitis, pancreatitis, musculoskeletal, as well as other pathologies. Diagnostics interpreted by me: ECG: Twelve-lead ECG reveals normal sinus rhythm at 60 bpm. There is a T wave inversion abnormality present in the inferior leads. When compared to 16 August 2020 the inferior changes are old. Lateral T wave inversions previously present are improved. Cardiac Monitoring: Cardiac monitoring ordered by me: The patient was placed on continuous cardiac monitoring and observed. It revealed a normal sinus rhythm at 64 beats per minute without ectopy or evidence of dysrhythmia. Imaging studies: Chest x-ray. Findings: A chest x-ray was performed and revealed no pneumothorax, effusion, infiltrate, pulmonary edema, free air under the diaphragm, or wide mediastinum. Impression: No acute disease. Consultation(s): [facility] hospitalist service HPI: The patient is a 69 year old female who presents to the Emergency Room with complaints of chest pain. This started a few days ago and is worsening. She also notes that it hurts to take a deep breath and pain is worse when she exerts herself. She did note she ran out of her aspirin last week. She has a history of coronary stents x6. The patient still actively smokes cigars. The patient also notes the following associated symptoms, pain radiating to her back and shoulder on the right side. The patient has tried 1 nitroglycerin for relieving factors. Current pain is rated as 6/10. Patient also notes a cough. No known Covid exposures. Pt denies LOC, headache, fevers, chills, diaphoresis, visual changes, neck pain, breathing difficulties, nausea, vomiting, abdominal p ain, lower back pain, melena, hematochezia, urinary symptoms, numbness, weakness, lymphadenopathy, rash, or other complaints. ROS: See above HPI for pertinent positives & negatives. A total of 10 systems reviewed and were otherwise negative. PAST MEDICAL HISTORY:See Below , CAD, hypertension PAST SURGICAL HISTORY:See Below, coronary stenting FAMILY HISTORY:See Below SOCIAL HISTORY:See Below, smoker HOME MEDICATIONS:See Below ALLERGIES:See Below VITALS:See Below PHYSICAL EXAMINATION: GENERAL: Awake, alert, mildly uncomfortable-appearing, in no distress HENT: Normocephalic, atraumatic. Oropharynx unremarkable. EYES: Normal conjunctiva. Sclera non-icteric. NECK: Inspection normal. Non-tender. Supple. No nuchal rigidity. FROM. No masses. RESPIRATORY: Clear to auscultation. No wheezes. No rales. Normal respiratory effort. CARDIAC: Normal rate. Normal rhythm. No murmurs. No rubs. Extremities warm and well perfused. Pulses equal. No JVD. GI: Soft, non-distended. No tenderness to palpation. No rebound or guarding. No masses. RECTAL: Deferred. MUSCULOSKELETAL: Atraumatic. Chest examination reveals no tenderness. The back is symmetrical on inspection without obvious abnormality. There is no CVA tenderness to palpation. No joint edema. LOWER EXTREMITIES: Calves are equal size bilaterally and non-tender. No edema. No discoloration. NEURO: Normal sensorium. No sensory or motor deficits noted. SKIN: No rash or jaundice noted. Jonah Blanco MD Past Med/Surg History Medical History (Updated 10/21/20 @ 19:32 by Lizzy Price PA-C) Anxiety CAD (coronary artery disease) HTN (hypertension) Tobacco use disorder Surgical History (Updated 10/21/20 @ 19:32 by Lizzy Price PA-C) Hx of tonsillectomy Social History Smoking Status: Current every day smoker Hx Alcohol Use: Yes Hx Substance Use: Yes Preferred Language: Ukrainian Current Living Situation: Family Feels Safe at Home: Yes Assistive Devices: None Allergies Allergies Allergy/AdvReac Type Severity Reaction Status Date / Time morphine AdvReac Intermediate sick as Verified 10/21/20 18:48 per px Home Meds Home Medications Medication Instructions Recorded Confirmed amiodarone [Pacerone] 200 mg PO QAM 10/21/20 10/21/20 amlodipine [Norvasc] 5 mg PO DAILY 10/21/20 10/21/20 aspirin [Aspir-Low] 81 mg PO DAILY 10/21/20 10/21/20 citalopram 20 mg PO DAILY 10/21/20 10/21/20 clopidogrel 75 mg PO DAILY 10/21/20 10/21/20 hydrochlorothiazide 25 mg PO DAILY 10/21/20 10/21/20 lorazepam 0.5 mg PO HS PRN 10/21/20 10/21/20 lorazepam [Ativan] 0.5 mg PO HS 10/21/20 10/21/20 losartan [Cozaar] 100 mg PO DAILY 10/21/20 10/21/20 metoprolol succinate 100 mg PO DAILY 10/21/20 10/21/20 nitroglycerin [Nitrostat] 0.4 mg SUBLINGUAL UD PRN 10/21/20 10/21/20 rosuvastatin 10 mg PO DAILY 10/21/20 10/21/20 Results & Data (ED) Vital Signs Vital Signs - 24 hr 10/21/20 17:06 10/21/20 17:24 10/21/20 17:25 Temperature 36.9 C Temperature Source Oral Pulse Rate 64 Pulse Rate [Apical] Pulse Rate from SpO2 Sensor Pulse Rhythm Regular Pulse Strength Normal Respiratory Rate 20 Blood Pressure 184/109 H Blood Pressure [Right Arm] Blood Pressure Mean 134 Blood Pressure Mean [Right Arm] Blood Pressure Position Sitting Pulse Oximetry 96 Oxygen Delivery Method Room Air Room Air Room Air Sepsis Recent Fever Within 48 Hours No Sepsis New/Unexplained Change in Mental Status No Sepsis Action Taken by Nursing No Action Required 10/21/20 17:26 10/21/20 17:30 10/21/20 18:00 Temperature Temperature Source Pulse Rate 59 L 64 Pulse Rate [Apical] 58 L Pulse Rate from SpO2 Sensor 59 L 64 Pulse Rhythm Pulse Strength Respiratory Rate 21 22 16 Blood Pressure 183/90 H Blood Pressure [Right Arm] 188/97 H Blood Pressure Mean 121 Blood Pressure Mean [Right Arm] 127 Blood Pressure Position Pulse Oximetry 96 95 96 Oxygen Delivery Method Room Air Room Air Room Air Sepsis Recent Fever Within 48 Hours Sepsis New/Unexplained Change in Mental Status Sepsis Action Taken by Nursing 10/21/20 18:25 10/21/20 18:30 10/21/20 19:00 Temperature Temperature Source Pulse Rate 58 L 59 L 59 L Pulse Rate [Apical] Pulse Rate from SpO2 Sensor 59 L Pulse Rhythm Pulse Strength Respiratory Rate 20 22 20 Blood Pressure 179/95 H 171/92 H 161/92 H Blood Pressure [Right Arm] Blood Pressure Mean 123 118 115 Blood Pressure Mean [Right Arm] Blood Pressure Position Pulse Oximetry 96 Oxygen Delivery Method Room Air Sepsis Recent Fever Within 48 Hours Sepsis New/Unexplained Change in Mental Status Sepsis Action Taken by Nursing 10/21/20 19:30 Temperature Temperature Source Pulse Rate 62 Pulse Rate [Apical] Pulse Rate from SpO2 Sensor Pulse Rhythm Pulse Strength Respiratory Rate 21 Blood Pressure 145/87 H Blood Pressure [Right Arm] Blood Pressure Mean 106 Blood Pressure Mean [Right Arm] Blood Pressure Position Pulse Oximetry 95 Oxygen Delivery Method Room Air Sepsis Recent Fever Within 48 Hours Sepsis New/Unexplained Change in Mental Status Sepsis Action Taken by Nursing Laboratory Data Result diagrams: 10/21/20 Unknown 10/21/20 Unknown Lab Results 10/21/20 10/21/20 10/21/20 Range/Units 18:01 18:01 Unknown WBC 11.75 H (4.8-10.8) K/uL RBC 4.45 (4.2-5.4) M/uL Hgb 14.8 (12.0-16.0) g/dL Hct 42.9 (37-47) % MCV 96.4 (80-100) fL MCH 33.3 (25-34) pg MCHC 34.5 (32-36) g/dL RDW Std Deviation 45.4 (36.4-46.3) fL RDW Coeff of [place] 12.9 (11.5-14.5) % Plt Count 214 (130-400) K/uL MPV 10.7 H (7.4-10.4) fL Immature Gran % (Auto) 0.3 % Neut % (Auto) 70.0 % Lymph % (Auto) 17.2 % [place] % (Auto) 10.2 % Eos % (Auto) 2.0 % Baso % (Auto) 0.3 % Neut # (Auto) 8.22 H (1.4-6.5) K/uL Lymph # (Auto) 2.02 (1.2-3.4) K/uL [place] # (Auto) 1.20 H (0.11-0.59) K/uL Eos # (Auto) 0.24 (0-0.5) K/uL Baso # (Auto) 0.03 (0-0.2) K/uL Immature Gran # (Auto) 0.04 H (0.00-0.02) K/uL PT (9.0-12.0) Seconds INR (0.9-1.1) APTT (21.0-31.0) Seconds PTT Ratio D-Dimer (0-500) ug/L FEU Sodium (136-145) mmol/L Potassium (3.5-5.1) mmol/L Chloride (98-107) mmol/L Carbon Dioxide (21-32) mmol/L Anion Gap (3-11) BUN (7-18) mg/dl Creatinine (0.6-1.2) mg/dl Est Cr Clr Drug Dosing ml/min Est GFR ( Amer) Est GFR (Non-Af Amer) BUN/Creatinine Ratio (10-20) Glucose (70-99) mg/dl Calcium (8.5-10.1) mg/dl Total Bilirubin (0.2-1) mg/dl AST (15-37) U/L ALT (12-78) U/L Alkaline Phosphatase (45-117) U/L Total Creatine Kinase (26-192) U/L Troponin I (0-0.045) ng/ml Total Protein (6.4-8.2) gm/dl Albumin (3.4-5.0) gm/dl Globulin (2.5-4.0) gm/dl Albumin/Globulin Ratio (0.9-2) Lipase (73-393) U/L COVID-19 Eval Order Covid19 IDNow atMWVC SARS-CoV-2, RNA, NAAT NEGATIVE (NEGATIVE) 10/21/20 10/21/20 Range/Units Unknown Unknown WBC (4.8-10.8) K/uL RBC (4.2-5.4) M/uL Hgb (12.0-16.0) g/dL Hct (37-47) % MCV (80-100) fL MCH (25-34) pg MCHC (32-36) g/dL RDW Std Deviation (36.4-46.3) fL RDW Coeff of [place] (11.5-14.5) % Plt Count (130-400) K/uL MPV (7.4-10.4) fL Immature Gran % (Auto) % Neut % (Auto) % Lymph % (Auto) % [place] % (Auto) % Eos % (Auto) % Baso % (Auto) % Neut # (Auto) (1.4-6.5) K/uL Lymph # (Auto) (1.2-3.4) K/uL [place] # (Auto) (0.11-0.59) K/uL Eos # (Auto) (0-0.5) K/uL Baso # (Auto) (0-0.2) K/uL Immature Gran # (Auto) (0.00-0.02) K/uL PT 11.4 (9.0-12.0) Seconds INR 1.1 (0.9-1.1) APTT 30.8 (21.0-31.0) Seconds PTT Ratio 1.1 D-Dimer 460 (0-500) ug/L FEU Sodium 133 L (136-145) mmol/L Potassium 3.8 (3.5-5.1) mmol/L Chloride 98 (98-107) mmol/L Carbon Dioxide 28 (21-32) mmol/L Anion Gap 6.0 (3-11) BUN 14 (7-18) mg/dl Creatinine 0.98 (0.6-1.2) mg/dl Est Cr Clr Drug Dosing 47.4 ml/min Est GFR ( Amer) 68.7 Est GFR (Non-Af Amer) 59.3 BUN/Creatinine Ratio 13.8 (10-20) Glucose 92 (70-99) mg/dl Calcium 9.5 (8.5-10.1) mg/dl Total Bilirubin 0.7 (0.2-1) mg/dl AST 26 (15-37) U/L ALT 40 (12-78) U/L Alkaline Phosphatase 93 (45-117) U/L Total Creatine Kinase 139 (26-192) U/L Troponin I < 0.015 (0-0.045) ng/ml Total Protein 8.2 (6.4-8.2) gm/dl Albumin 4.0 (3.4-5.0) gm/dl Globulin 4.2 H (2.5-4.0) gm/dl Albumin/Globulin Ratio 1.0 (0.9-2) Lipase 127 (73-393) U/L COVID-19 Eval Order SARS-CoV-2, RNA, NAAT (NEGATIVE) Administered Medications Discontinued Medications Aspirin (Aspirin Chew 324 Mg) 324 mg PO NOW STA Stop: 10/21/20 17:45 Last Admin: 10/21/20 17:59 Dose: 324 mg Documented by: [id number] Nitroglycerin (Nitroglycerin Sl 0.4 Mg/Tab Tab) 0.4 mg SL NOW STA Stop: 10/21/20 17:45 Last Admin: 10/21/20 17:59 Dose: 0.4 mg Documented by: [id number] Discharge Plan Visit Data Chief Complaint: Chest Pain Stated Complaint: CHEST PAIN AND PRESSURE, CARDIAC HX ED Provider: Jonah Blanco Discharge Problem: Substernal chest pain Forms Stand Alone Forms: My [facility] Prescriptions Prescriptions: No Action amiodarone [Pacerone] 200 mg tablet 200 mg PO QAM RF: 0 metoprolol succinate 100 mg tablet extended release 24 hr 100 mg PO DAILY RF: 0 clopidogrel 75 mg tablet 75 mg PO DAILY RF: 0 amlodipine [Norvasc] 5 mg tablet 5 mg PO DAILY RF: 0 aspirin [Aspir-Low] 81 mg Tablet,Delayed Release (Dr/Ec) 81 mg PO DAILY RF: 0 citalopram 20 mg tablet 20 mg PO DAILY RF: 0 lorazepam 0.5 mg tablet 0.5 mg PO HS PRN (Reason: Anxiety) RF: 0 lorazepam [Ativan] 0.5 mg tablet 0.5 mg PO HS RF: 0 nitroglycerin [Nitrostat] 0.4 mg Tablet, Sublingual 0.4 mg sublingual UD PRN (Reason: Chest Pain) RF: 0 hydrochlorothiazide 25 mg tablet 25 mg PO DAILY RF: 0 losartan [Cozaar] 100 mg tablet 100 mg PO DAILY RF: 0 rosuvastatin 10 mg tablet 10 mg PO DAILY RF: 0
--- NOTE | 2020-10-21 19:33 | History & Physical Report ---
Date of Service October 21, 2020 Assessment & Plan (1) Substernal chest pain: (2) CAD (coronary artery disease): (3) Tobacco use disorder: (4) HTN (hypertension): (5) Dyslipidemia: (6) Anxiety: This is a 69yo F with a PMH of CAD with multivessel disease status post PCI to RCA/LAD/circumflex in July 2020 complicated by circumferential pericardial effusion and brief paroxysmal A. fib post stenting, continued tobacco use disorder, hypertension, anxiety and other medical problems as a below who presents with chest pain x 3 days. Chest pain Worsening central pain with radiation to R shoulder x 3 days, worse with exertion, coughing, deep breaths and leaning forward Ddx angina in the setting of CAD with recent stents and poor dual antiplatelet adherence in the past week vs pericarditis/pericardial effusion in setting of reports of worsening pain with leaning forward or deep breath Initial troponin negative. ECG with TWI of inferior leads (present on previous ECG), lateral TWI have resolved since previous. D-dimer negative. CXR without acute process Received aspirin 324mg and ntg in ED with improvement of symptoms Telemetry monitoring, trend troponin, continue dual antiplatelet therapy Cardiology consult placed. NPO after midnight except meds. 2D echo ordered Continue losartan, metoprolol succinate, statin, amiodarone Tobacco use disorder Quit smoking briefly following placement of stents but has since resumed Discussed importance of cessation with patient Hypertension Continue losartan, metoprolol succinate, hctz, amlodipine Anxiety Continue citalopram, home dose Ativan PRN DVT Ppx: SQ heparin Code status: FULL PCP: Bridger Khalil Dispo: Tele observation. Plan to return home once medically stable. Patient seen in collaboration with Dr. Forte. Please see addendum. History of Present Illness Chief Complaint: chest pain Primary Care Provider: Diaz Khalil, This is a 69yo F with a PMH of CAD with multivessel disease status post PCI to RCA/LAD/circumflex in July 2020 complicated by circumferential pericardial effusion and brief paroxysmal A. fib post stenting, continued tobacco use disorder, hypertension, anxiety and other medical problems as a below who presents with chest pain x 3 days. Describes chest pain as centrally located pain that is aching and pulsing in nature. Made worse with coughing, deep breaths, leaning forward or exertion from walking upstairs. States that it was more soreness for the past 2 days but became painful today with radiation to right shoulder. Does feel similar to previous chest pain back in July. Did improve with ntg. Notably, patient ran out of aspirin 1 week ago. States she has been taking all other medications, including Plavix. Still smoking 5 cigarillos cigars daily. Also endorsing chills with productive cough with yellow sputum with marrero speckles. Covid test negative. No fever, headache, lightheadedness, palpitati ons, wheezing, nausea, vomiting, abdominal pain, dysuria, diarrhea or constipation. Allergies Allergy/AdvReac Type Severity Reaction Status Date / Time morphine AdvReac Intermediate sick as Verified 10/21/20 18:48 per px Home Medications Medication Instructions Recorded Confirmed Type amiodarone [Pacerone] 200 mg PO QAM 10/21/20 10/21/20 History amlodipine [Norvasc] 5 mg PO DAILY 10/21/20 10/21/20 History aspirin [Aspir-Low] 81 mg PO DAILY 10/21/20 10/21/20 History citalopram 20 mg PO DAILY 10/21/20 10/21/20 History clopidogrel 75 mg PO DAILY 10/21/20 10/21/20 History hydrochlorothiazide 25 mg PO DAILY 10/21/20 10/21/20 History lorazepam 0.5 mg PO TID PRN 10/21/20 10/21/20 History losartan [Cozaar] 100 mg PO DAILY 10/21/20 10/21/20 History metoprolol succinate 100 mg PO DAILY 10/21/20 10/21/20 History nitroglycerin [Nitrostat] 0.4 mg SUBLINGUAL UD PRN 10/21/20 10/21/20 History rosuvastatin 10 mg PO DAILY 10/21/20 10/21/20 History Past Med/Surg History Medical History Anxiety CAD (coronary artery disease) Dyslipidemia HTN (hypertension) Tobacco use disorder Surgical History Hx of tonsillectomy lingual tonsil S/P coronary artery stent placement PCI to RCA, LAD and circumflex in July 2020 Social History Smoking Status: Current every day smoker Second Hand Exposure: No; Do You Dip or Chew Tobacco: No; Tobacco Cessation Education Requested by Patient: No Hx Alcohol Use: Yes Alcohol type: hard liquor Hx Substance Use: No Preferred Language: Sudanese Communication Ability: Effective 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 Physical Exam Physical Exam: General Appearance: WD/WN, vitals as above, NAD, sitting up in bed, pleasant, conversing easily Head: normocephalic, atraumatic Eyes: normal inspection, PERRL, conjunctivae normal, anicteric sclerae ENT: external ear and nose normal, oropharynx normal Neck: normal visual inspection, trachea midline, no thyromegaly Respiratory: normal respiratory effort, lungs clear to auscultation, no wheeze, rales, rhonchi. No accessory muscle use Cardiovascular: regular rate, rhythm, no murmur, normal peripheral pulses, no BLE edema. Vessels: no JVD Chest: normal inspection of chest Abdomen/GI: normal bowel sounds, soft, nontender, no hepatosplenomegaly Extremities/Musculoskeletal: no cyanosis or clubbing, extremities motor strength 5/5 Neurologic: PERRL, EOMI, accommodation nl, no face palsy, no dysarthria, CN's II-XI intact bilaterally and moves all extremities Psychiatric: A+Ox3, euthymic affect Skin: no rashes, normal color, warm/dry Results & Data Results & Data ([facility]) Vital Signs (Past 12 Hours) Vital Signs Temp Pulse Pulse Resp BP BP Pulse Ox 10/21/20 19:00 59 L 20 161/92 H 96 10/21/20 18:30 59 L 22 171/92 H 10/21/20 18:25 58 L 20 179/95 H 10/21/20 18:00 64 16 96 10/21/20 17:30 59 L 22 183/90 H 95 10/21/20 17:26 58 L 21 188/97 H 96 10/21/20 17:06 36.9 C 64 20 184/109 H 96 Laboratory Results Short CBC 10/21/20 Range/Units Unknown WBC 11.75 H (4.8-10.8) K/uL Hgb 14.8 (12.0-16.0) g/dL Hct 42.9 (37-47) % Plt Count 214 (130-400) K/uL BMP 10/21/20 Unknown Sodium 133 L Potassium 3.8 Chloride 98 Carbon Dioxide 28 BUN 14 Creatinine 0.98 Glucose 92 Calcium 9.5 Cardiac Enzymes 10/21/20 Range/Units Unknown Total Creatine Kinase 139 (26-192) U/L Troponin I < 0.015 (0-0.045) ng/ml Liver Function 10/21/20 Range/Units Unknown Total Bilirubin 0.7 (0.2-1) mg/dl AST 26 (15-37) U/L ALT 40 (12-78) U/L Alkaline Phosphatase 93 (45-117) U/L Albumin 4.0 (3.4-5.0) gm/dl Diagnostic Findings CXR: IMPRESSION: No acute process. ECG Rhythm: normal sinus Findings: + T-wave inversion (inferior) Additional Comments: lateral lead TWI resolving Supervising Physician Co-Signing Physician Notes Date of Service: October 21, 2020 69 year old woman with hypertension, anxiety, CAD with multivessel disease, PCI to RCA/LAD/circumflex in July 2020 with circumferential pericardial effusion and brief paroxysmal A. fib post stenting, active smoker who presents to the ER complaining of chest pain for the past 3 days. History as detailed above, notable for central chest pain, constant, worse with deep breaths and leaning forward and exertion, currently reports feeling better after getting nitro and had run out of aspirin for the past 1 week. Physical exam notable for blood pressure of 163/97 Lab work notable for troponin of less than 0.015, sodium of 133 EKG showed inferior leads T wave inversions as an old EKG, lateral T wave inversion seem to have resolved. Chest x-ray did not show any acute process -Chest pain Differentials include Possible angina in the setting of CAD with recent stents and poor dual antiplatelet adherence in the past week; pericarditis/pericardial effusion in view of reports of worsening chest pain with leaning forward or deep breath. Trend troponin Telemetry monitoring Got aspirin. Continue dual antiplatelet therapy Cardiology consult. N.p.o. past midnight Gets 2D echo Continue lisinopril, metoprolol, statin, amiodarone Other plans as above
[2020-10-21] MEDS ORDERED: NITROGLYCERIN SL 0.4 MG/TAB TAB SL PRN (20:47)
[2020-10-21] MEDS ORDERED: POLYETHYLENE (MIRALAX) 17 GM PACK PO PRN (20:47)
[2020-10-21] MEDS ORDERED: ONDANSETRON INJ 2 MG/ML 2 ML VIAL IV PRN (20:47)
[2020-10-21] MEDS ORDERED: ACETAMINOPHEN 325 MG TAB PO PRN (20:47)
[2020-10-21] MEDS: HEPARIN SOD 5,000 UNIT/0.5 ML VIAL SQ SCH (21:51)
[2020-10-21] MEDS: LORazepam 0.5 MG TAB PO PRN (23:49)
[2020-10-22 05:02] LABS: Hematocrit (blood only) 41.3 % (37-47); Hemoglobin 14.3 g/dL (12.0-16.0); Mean Corpuscular Hemoglobin 33.2 pg (25-34); Mean Corpuscular Hgb Conc 34.6 g/dL (32-36); Mean Corpuscular Volume 95.8 fL (80-100); Mean Platelet Volume 10.5 fL (7.4-10.4); Platelet Count 208 K/uL (130-400); RDW Coefficient of Variation 12.8 % (11.5-14.5); RDW Standard Deviation 44.7 fL (36.4-46.3); Red Blood Count 4.31 M/uL (4.2-5.4); White Blood Count 9.24 K/uL (4.8-10.8)
[2020-10-22 05:31] LABS: BUN Creatinine Ratio 14.7 (10-20); Blood Urea Nitrogen 11 mg/dl (7-18); Calcium 8.9 mg/dl (8.5-10.1); Carbon Dioxide 30 mmol/L (21-32); Chloride 101 mmol/L (98-107); Creatinine Clr Calc Pharmacy 55.3 ml/min; Est GFR (Non-African American) 79.3; Glucose 84 mg/dl (70-99); Potassium 3.2 mmol/L (3.5-5.1); Sodium 135 mmol/L (136-145)
[2020-10-22 05:43] LABS: Troponin I < 0.015 ng/ml (0-0.045)
[2020-10-22] MEDS: HEPARIN SOD 5,000 UNIT/0.5 ML VIAL SQ SCH ×3 (06:28→21:19)
[2020-10-22] MEDS ORDERED: POTASSIUM CHLORIDE CRTAB 20 MEQ TABCR PO STA (07:50)
[2020-10-22] MEDS ORDERED: AMIODARONE 200 MG TAB PO SCH (09:00)
--- NOTE | 2020-10-22 09:53 | Electrocardiogram Report ---
Test Reason : Blood Pressure : / mmHG Vent. Rate : 060 BPM Atrial Rate : 060 BPM P-R Int : 144 ms QRS Dur : 086 ms QT Int : 472 ms P-R-T Axes : 061 063 -18 degrees QTc Int : 472 ms Normal sinus rhythm T wave abnormality, consider inferior ischemia Abnormal ECG When compared with ECG of 16-AUG-2020 06:55, Premature atrial complexes are no longer Present T wave inversion no longer evident in Lateral leads Confirmed by Zac Horton ([id number]) on 10/22/2020 9:53:23 AM Referred By: REFERRED SELF Confirmed By:Sukhjinder Horton
--- NOTE | 2020-10-22 10:01 | Electrocardiogram Report ---
Test Reason : Blood Pressure : / mmHG Vent. Rate : 057 BPM Atrial Rate : 057 BPM P-R Int : 146 ms QRS Dur : 086 ms QT Int : 484 ms P-R-T Axes : 068 076 025 degrees QTc Int : 471 ms Sinus bradycardia Possible Left atrial enlargement Borderline ECG When compared with ECG of 21-OCT-2020 17:22, (unconfirmed) T wave inversion no longer evident in Inferior leads Confirmed by Zac Horton ([id number]) on 10/22/2020 10:00:58 AM Referred By: REFERRED SELF Confirmed By:Sukhjinder Horton
[2020-10-22] MEDS: hydroCHLOROthiazide 25 MG TAB PO SCH (10:02)
[2020-10-22] MEDS: ROSUVASTATIN CALCIUM 10 MG TAB PO SCH (10:02)
[2020-10-22] MEDS: CITALOPRAM 20 MG TAB PO SCH (10:02)
[2020-10-22] MEDS: ASPIRIN 81 MG ECTAB PO SCH (10:02)
[2020-10-22] MEDS: amLODIPine BESYLATE 5 MG TAB PO SCH (10:02)
[2020-10-22] MEDS: CLOPIDOGREL BISULFATE 75 MG TAB PO SCH (10:02)
[2020-10-22] MEDS: METOPROLOL SUCC 50MG EXT REL TAB PO SCH (10:03)
[2020-10-22] MEDS: LOSARTAN POTASSIUM 50 MG TAB PO SCH (10:25)
--- NOTE | 2020-10-22 10:56 | Cardiology Consultation ---
Date of Consultation October 22, 2020 Assessment & Plan (1) Pleuritic chest pain: Patient with pleuritic chest discomfort, reproduced with deep inspiration, but there is also a component that she is concerned was reproduced with climbing stairs some of her characteristics are reminiscent of her previous angina as noted in July. The discomfort that prompted her to come to the hospital was certainly reproduced with deep inspiration at the bedside today. Serial troponin levels are negative x3. EKG is relatively unchanged compared to her previous post procedure baseline. Echocardiogram reveals a small circumferential pericardial effusion, which is more prominent than what it was in July. A small sized basal inferior wall motion abnormality was unchanged compared to July, with wall motion otherwise. ESR results are minimally elevated to 25 mm/h. COVID-19 screen negative. I question if the patient is experiencing symptoms of a mild pericarditis or pleuropericarditis. We will advance her diet, and add colchicine. Will reassess today, consider short-term treatment with prednisone depending upon how she feels, plans to do distinguish further if this is similar to previous angina. (2) CAD (coronary artery disease): Aspirin 81 mg daily, clopidogrel 75 mg daily, Toprol succinate 100 mg daily. -Amiodarone was previously discontinued in outpatient in August. -Will discontinue. (3) HTN (hypertension): Patient with noted labile hypertension, observe previous admission. Not tolerate the addition of nitrates well, they made her very ill, and therefore will avoid this agent. Although systolic blood pressure markedly elevated on arrival earlier overnight, and has improved significantly to 132/68, prior to receiving her morning medications this morning. Outpatient antihypertensives eluding to being, chlorothiazide, losartan, metoprolol (4) Anxiety: This was an issue during her previous hospital stay, continue Celexa. (5) Dyslipidemia: Continue rosuvastatin. (6) Hypokalemia: History of Present Illness Attending Physician: Vikash Lamb MD History of Present Illness Rosa Persaud is a 69 year old female seen in cardiology consultation per the r equest of Mena Price PA-C of the [facility] hospitalist group for the evaluation of chest pain. The patient's primary chrome polisher is Dr. Lambert of our practice. The patient is well-known to the undersigned as I followed her during her hospital stay in July,. She describes that she has been feeling well since her admission with multivessel percutaneous coronary intervention in July 2020. She notes that through August and so far this month, she had scribes no symptoms suggestive of her previous angina. She had a Zio monitoring and evaluation advisor that revealed no additional episodes of atrial fibrillation and her amiodarone was since discontinued. 3 days ago, she noted onset of chest discomfort while she was sitting still, worse with deep inspiration, that would radiate to her neck and to some degree into her shoulders, perhaps she felt a little while she was walking upstairs, for the most part, it was when she was sitting still and taking deep inspirations. She was concerned that perhaps this was a COVID-19 symptom, presented for evaluation. COVID-19 testing negative. Patient able to reproduce her symptoms with deep inspiration at the time of my assessment in room 103. Does not believe the symptoms are reminiscent of her prior angina symptoms. Past Cardiac History: The patient has a long standing history of an abnormal EKG with diffuse repolar ization changes, previously attributed to tension with left ventricular hypertrophy. Her recent history dates back to August 11, 2020 when she underwent an exercise stress echocardiogram outpatient for symptoms of exertional chest discomfort that radiated down her arms. Stress echocardiogram was abnormal and suggestive of ischemia. 08/13/2020, diagnostic cardiac catheterization took place with findings of three-vessel coronary heart disease. Based on her stress test results angiogram findings, the right coronary artery was addressed first and she underwent complex RCA PCI, with 3 drug-eluting stents 08/13/20. Patient was felt to have post procedure myocardial infarction due to jailing of the right posterior lateral branch of the right coronary artery at time of initial PCI. The peak troponin was 44 ng/ml. Patency of her coronary stents was confirmed at time of repeat coronary angiography on 08/14/20, prior to staged PCI of the left anterior descending and circumflex coronaries each addressed with a single drug eluting stent. She was also followed during the hospital stay for a small circumferential pericardial effusion was felt to be due to a coronary microperforation rather than a post procedure pericarditis. An episode of paroxysmal atrial fibrillation was also observed, without clinical recurrence. Allergies Allergy/AdvReac Type Severity Reaction Status Date / Time morphine AdvReac Intermediate sick as Verified 10/21/20 18:48 per px Home Medications Medication Instructions Recorded Confirmed Type amiodarone [Pacerone] 200 mg PO QAM 10/21/20 10/21/20 History amlodipine [Norvasc] 5 mg PO DAILY 10/21/20 10/21/20 History aspirin [Aspir-Low] 81 mg PO DAILY 10/21/20 10/21/20 History citalopram 20 mg PO DAILY 10/21/20 10/21/20 History clopidogrel 75 mg PO DAILY 10/21/20 10/21/20 History hydrochlorothiazide 25 mg PO DAILY 10/21/20 10/21/20 History lorazepam 0.5 mg PO TID PRN 10/21/20 10/21/20 History losartan [Cozaar] 100 mg PO DAILY 10/21/20 10/21/20 History metoprolol succinate 100 mg PO DAILY 10/21/20 10/21/20 History nitroglycerin [Nitrostat] 0.4 mg SUBLINGUAL UD PRN 10/21/20 10/21/20 History rosuvastatin 10 mg PO DAILY 10/21/20 10/21/20 History Patient History Medical History Anxiety CAD (coronary artery disease) Dyslipidemia HTN (hypertension) Tobacco use disorder Surgical History Hx of tonsillectomy lingual tonsil S/P coronary artery stent placement PCI to RCA, LAD and circumflex in July 2020 Social History Smoking Status: Current every day smoker Second Hand Exposure: No; Do You Dip or Chew Tobacco: No; Tobacco Cessation Education Requested by Patient: No Hx Alcohol Use: Yes Alcohol type: hard liquor Hx Substance Use: No Preferred Language: Welsh Communication Ability: Effective [employer] Required: No Beliefs That Will Affect Care: None Current Living Situation: Significant Other Other Information That Helps Us Care for You: No Feels Safe at Home: Yes Safety Concerns: Feels Safe At This Time Assistive Devices: Denture - Upper, Denture - Lower and Glasses Review of Systems Review of Systems: All systems reviewed & are unremarkable except as noted in HPI & below Physical Exam Physical Exam: Temp Pulse Resp BP Pulse Ox 36.8 C 80 20 132/68 93 10/22/20 08:00 10/22/20 08:00 10/22/20 08:00 10/22/20 08:00 10/22/20 08:00 Constitutional: WD/WN, vitals as above Respiratory: normal respiratory effort, lungs clear to auscultation Cardiovascular: RRR, no murmur, no edema Gastrointestinal (Abdomen): normal bowel sounds, soft, nontender, no hepatosplenomegaly Neurologic: PERRL, EOMI, accommodation nl, no face palsy, no dysarthria Results & Data ([facility]) Vital Signs (Past 12 Hours) Vital Signs Temp Pulse Resp BP Pulse Ox 10/22/20 08:00 36.8 C 80 20 132/68 93 Laboratory Results Cardiac Enzymes 10/21/20 10/22/20 10/22/20 Range/Units Unknown 00:06 04:38 AST 26 (15-37) U/L Troponin I < 0.015 0.028 < 0.015 (0-0.045) ng/ml Coagulation 10/21/20 Range/Units Unknown PT 11.4 (9.0-12.0) Seconds APTT 30.8 (21.0-31.0) Seconds CBC 10/21/20 10/22/20 Range/Units Unknown 04:38 WBC 11.75 H 9.24 (4.8-10.8) K/uL RBC 4.45 4.31 (4.2-5.4) M/uL Hgb 14.8 14.3 (12.0-16.0) g/dL Hct 42.9 41.3 (37-47) % Plt Count 214 208 (130-400) K/uL Neut # (Auto) 8.22 H (1.4-6.5) K/uL Lymph # (Auto) 2.02 (1.2-3.4) K/uL [place] # (Auto) 1.20 H (0.11-0.59) K/uL Eos # (Auto) 0.24 (0-0.5) K/uL Baso # (Auto) 0.03 (0-0.2) K/uL Comprehensive Metabolic Panel 10/21/20 10/22/20 Range/Units Unknown 04:38 Sodium 133 L 135 L (136-145) mmol/L Potassium 3.8 3.2 L D (3.5-5.1) mmol/L Chloride 98 101 (98-107) mmol/L Carbon Dioxide 28 30 (21-32) mmol/L BUN 14 11 (7-18) mg/dl Creatinine 0.98 0.77 (0.6-1.2) mg/dl Glucose 92 84 (70-99) mg/dl Calcium 9.5 8.9 (8.5-10.1) mg/dl AST 26 (15-37) U/L ALT 40 (12-78) U/L Alkaline Phosphatase 93 (45-117) U/L Total Protein 8.2 (6.4-8.2) gm/dl Albumin 4.0 (3.4-5.0) gm/dl Intake and Output 10/21/20 10/22/20 10/22/20 22:59 06:59 14:59 Intake Total 120 / 120 0 / 120 Balance 120 / 120 0 / 120 Intake: Oral 120 / 120 0 / 120 Other: # Unmeasured Voids 1 1 Weight 54.4 kg Weight Measurement Method Built in [facility] Diagnostic Findings EKG tracing performed 10/21/2020 at 722 and reviewed independently revealed sinus rhythm at 60 bpm, with T wave inversions in the inferior leads, subtle ST depression lateral precordial leads, unchanged compared to the previous outpatient EKG dated 09/08/2020. Two additional tracings have been performed patient thus far, with needs plan change, the most recent tracing performed this morning at 6:46 AM actually reveals improvement in the inferior and lateral repolarization abnormalities.
--- NOTE | 2020-10-22 12:26 | Hospitalist Progress Note ---
Date of Service October 22, 2020 Assessment & Plan (1) Pleuritic chest pain: Presented with substernal chest pain which is worse with deep breathing and sometimes leaning forward Sounds like pleuritic pain and could be pleuropericardial pain Serial cardiac enzymes have been negative for any ACS and echo is showing minimally increased circumferential pericardial effusion compared with that in July 2020 Appreciate cardiology input and recommendation Colchicine has been added and likely to have short-term prednisone Symptomatically much better since admit (2) Substernal chest pain: As above (3) CAD (coronary artery disease): Has significant CAD as documented below No ACS during this admission (4) Tobacco use disorder: Quit smoking briefly following placement of stents but has since resumed Discussed importance of cessation with patient (5) HTN (hypertension): Continue losartan, metoprolol succinate, hctz, amlodipine (6) Dyslipidemia: (7) Anxiety: Continue citalopram, home dose Ativan PRN Notes from admitting physician: This is a 69yo F with a PMH of CAD with multivessel disease status post PCI to RCA/LAD/circumflex in July 2020 complicated by circumferential pericardial effusion and brief paroxysmal A. fib post stenting, continued tobacco use disorder, hypertension, anxiety and other medical problems as a below who presents with chest pain x 3 days. Chest pain Worsening central pain with radiation to R shoulder x 3 days, worse with exertion, coughing, deep breaths and leaning forward Ddx angina in the setting of CAD with recent stents and poor dual antiplatelet adherence in the past week vs pericarditis/pericardial effusion in setting of reports of worsening pain with leaning forward or deep breath Initial troponin negative. ECG with TWI of inferior leads (present on previous ECG), lateral TWI have resolved since previous. D-dimer negative. CXR without acute process Received aspirin 324mg and ntg in ED with improvement of symptoms Telemetry monitoring, trend troponin, continue dual antiplatelet therapy Cardiology consult placed. NPO after midnight except meds. 2D echo ordered Continue losartan, metoprolol succinate, statin, amiodarone DVT Ppx: SQ heparin Code status: FULL PCP: Bridger Khalil Dispo: Tele observation. Plan to return home once medically stable. Likely to stay tonight Admission and Anticipated Discharge Date Admission Date: October 21, 2020 Subjective 10/22/2020 The patient was seen and examined in ICU with telemetry status She has significant CAD status post multiple stent placement and was admitted with chest pain Her pain in the is in the precordium and also back of the chest and is worse with deep breathing She denies any shortness of breath associated with it She has not been having any rest pain since admission Review of Systems Review of Systems: All systems reviewed and are unremarkable except as noted below Respiratory: + pain on inspiration; no cough and no dyspnea Cardiovascular: + chest pain (1 deep breathing and also leaning forward) Physical Exam Physical Exam: Lying in bed comfortably Constitutional: average body habitus; no acute distress and not ill appearing Eyes: PERRL, conjunctivae normal, anicteric sclerae ENMT: external ear and nose normal, oropharynx normal Neck: trachea midline, no thyromegaly Respiratory: normal respiratory effort, lungs clear to auscultation Cardiovascular: Rate/Rhythm: regular rate and regular rhythm Heart Sounds: no murmur Extremities: no edema Gastrointestinal (Abdomen): Inspection/Auscultation: normal bowel sounds; abdomen not distended Percussion/Palpation: abdomen soft; abdomen nontender Musculoskeletal: No acute arthritis in any joint. No tenderness over precordium and or at the upper back Neurologic: Alert, awake and oriented x3. No focal sensory and motor deficit appreciated Psychiatric: A+Ox3, euthymic affect Lymphatic: no cervical or axillary lymphadenopathy Results & Data Results & Data ([facility]) Vital Signs (Past 12 Hours) Vital Signs Temp Pulse Resp BP Pulse Ox 10/22/20 11:00 36.8 C 65 20 135/68 96 10/22/20 08:00 36.8 C 80 20 132/68 93 Laboratory Results Short CBC 10/21/20 10/22/20 Range/Units Unknown 04:38 WBC 11.75 H 9.24 (4.8-10.8) K/uL Hgb 14.8 14.3 (12.0-16.0) g/dL Hct 42.9 41.3 (37-47) % Plt Count 214 208 (130-400) K/uL BMP 10/21/20 10/22/20 Unknown 04:38 Sodium 133 L 135 L Potassium 3.8 3.2 L D Chloride 98 101 Carbon Dioxide 28 30 BUN 14 11 Creatinine 0.98 0.77 Glucose 92 84 Calcium 9.5 8.9 Cardiac Enzymes 10/21/20 10/22/20 10/22/20 Range/Units Unknown 00:06 04:38 Total Creatine Kinase 139 (26-192) U/L Troponin I < 0.015 0.028 < 0.015 (0-0.045) ng/ml Liver Function 10/21/20 Range/Units Unknown Total Bilirubin 0.7 (0.2-1) mg/dl AST 26 (15-37) U/L ALT 40 (12-78) U/L Alkaline Phosphatase 93 (45-117) U/L Albumin 4.0 (3.4-5.0) gm/dl Medications Administered Current Inpatient Medications Acetaminophen (Acetaminophen 325 Mg Tab) 650 mg PO Q4H PRN PRN Reason: Pain or Fever Stop: 11/20/20 20:46 Last Admin: 10/21/20 23:49 Dose: 650 mg Documented by: Amlodipine Besylate (Amlodipine Besylate 5 Mg Tab) 5 mg PO DAILY SAM Stop: 11/21/20 08:59 Last Admin: 10/22/20 10:02 Dose: 5 mg Documented by: Aspirin (Aspirin 81 Mg Ectab) 81 mg PO DAILY SAM Stop: 11/21/20 08:59 Last Admin: 10/22/20 10:02 Dose: 81 mg Documented by: Citalopram Hydrobromide (Citalopram 20 Mg Tab) 20 mg PO DAILY SAM Stop: 11/21/20 08:59 Last Admin: 10/22/20 10:02 Dose: 20 mg Documented by: Clopidogrel Bisulfate (Clopidogrel Bisulfate 75 Mg Tab) 75 mg PO DAILY SAM Stop: 11/21/20 08:59 Last Admin: 10/22/20 10:02 Dose: 75 mg Documented by: Colchicine (Colchicine 0.6 Mg Tab) 0.6 mg PO BID SAM Stop: 11/21/20 11:29 Heparin Sodium (Porcine) (Heparin Sod 5,000 Unit/0.5 Ml Vial) 5,000 units SQ Q8 SAM Stop: 11/20/20 21:59 Last Admin: 10/22/20 06:28 Dose: 5,000 units Documented by: Hydrochlorothiazide (Hydrochlorothiazide 25 Mg Tab) 25 mg PO DAILY SAM Stop: 11/21/20 08:59 Last Admin: 10/22/20 10:02 Dose: 25 mg Documented by: Lorazepam (Lorazepam 0.5 Mg Tab) 0.5 mg PO TID PRN PRN Reason: Anxiety Stop: 11/20/20 20:46 Last Admin: 10/21/20 23:49 Dose: 0.5 mg Documented by: Losartan Potassium (Losartan Potassium 50 Mg Tab) 100 mg PO DAILY [facility] Stop: 11/21/20 08:59 Last Admin: 10/22/20 10:25 Dose: 100 mg Documented by: Metoprolol Succinate (Metoprolol Succ 50mg Ext Rel Tab) 100 mg PO DAILY SAM Stop: 11/21/20 08:59 Last Admin: 10/22/20 10:03 Dose: 100 mg Documented by: Nitroglycerin (Nitroglycerin Sl 0.4 Mg/Tab Tab) 0.4 mg SL UD PRN PRN Reason: Chest Pain Stop: 11/20/20 20:46 Ondansetron HCl (Ondansetron Inj 2 Mg/Ml 2 Ml Vial) 4 mg IV Q6H PRN PRN Reason: Nausea Stop: 11/20/20 20:46 Polyethylene Glycol (Polyethylene (Miralax) 17 Gm Pack) 17 gm PO DAILY PRN PRN Reason: Constipation Stop: 11/20/20 20:46 Rosuvastatin Calcium (Rosuvastatin Calcium 10 Mg Tab) 10 mg PO DAILY [facility] Stop: 11/21/20 08:59 Last Admin: 10/22/20 10:02 Dose: 10 mg Documented by:
[2020-10-22] MEDS: COLCHICINE 0.6 MG TAB PO SCH ×2 (12:31→21:19)
--- NOTE | 2020-10-22 15:52 | Communication Note ---
Date of Service: October 22, 2020 Patient reassessed having advanced her diet earlier today. Cardiac chest discomfort improved. She describes that this is definitely different than her p revious anginal pain. CRP and ESR only minimally elevated, but given small circumferential pericardial effusion that has increased in size compared to July, as well as the pleuritic nature of her chest discomfort, continue with planned treatment with colchicine. Proceed with Lexiscan nuclear stress test tomorrow. Patient agreeable.
[2020-10-22] MEDS: LORazepam 0.5 MG TAB PO PRN (23:29)
[2020-10-23] MEDS: HEPARIN SOD 5,000 UNIT/0.5 ML VIAL SQ SCH ×2 (06:23→12:37)
[2020-10-23 06:42] LABS: Basophils # (auto) 0.02 K/uL (0-0.2); Basophils % (auto) 0.2 %; Eosinophils # (auto) 0.27 K/uL (0-0.5); Eosinophils % (auto) 3.3 %; Hematocrit (blood only) 42.5 % (37-47); Hemoglobin 14.6 g/dL (12.0-16.0); Immature Granulocytes # (auto) 0.02 K/uL (0.00-0.02); Immature Granulocytes % (auto) 0.2 %; Lymphocytes # (auto) 2.31 K/uL (1.2-3.4); Lymphocytes % (auto) 27.9 %; Mean Corpuscular Hemoglobin 32.8 pg (25-34); Mean Corpuscular Hgb Conc 34.4 g/dL (32-36); Mean Corpuscular Volume 95.5 fL (80-100); Mean Platelet Volume 10.8 fL (7.4-10.4); Monocytes # (auto) 0.92 K/uL (0.11-0.59); Monocytes % (auto) 11.1 %; Neutrophils # (auto) 4.73 K/uL (1.4-6.5); Neutrophils % (auto) 57.3 %; Platelet Count 211 K/uL (130-400); RDW Coefficient of Variation 12.7 % (11.5-14.5); Red Blood Count 4.45 M/uL (4.2-5.4); White Blood Count 8.27 K/uL (4.8-10.8)
[2020-10-23 07:11] LABS: BUN Creatinine Ratio 20.9 (10-20); Calcium 9.5 mg/dl (8.5-10.1); Creatinine Clr Calc Pharmacy 52.6 ml/min; Est GFR (African American) 86.5; Est GFR (Non-African American) 74.6; Potassium 3.8 mmol/L (3.5-5.1)
[2020-10-23] MEDS ORDERED: REGADENOSON 0.4 MG/5 ML SYR IV ONE (08:32)
--- NOTE | 2020-10-23 12:22 | Cardiology Progress Note ---
Date of Service October 23, 2020 Assessment & Plan (1) Pleuritic chest pain: Suspect pericarditis, pleuropericarditis given mild circumferential pericardial effusion, increased in size compared to July,. -Nuclear stress test performed today 10/23/2020, with normal perfusion. Will discharge on colchicine 0.6 mg twice daily x2 weeks, then reduce to 0.6 mg 1 time per day. (2) CAD (coronary artery disease): Multivessel coronary heart disease, with drug-eluting stents to the LAD, circumflex, and RCA territories July,. Continue aspirin, clopidogrel, metoprolol, rosuvastatin. (3) HTN (hypertension): History of labile hypertension, with several readings elevated last night, well controlled this morning and during the stress test. Continue with current dose of amlodipine, hydrochlorothiazide, losartan, metoprolol succinate. Patient did not tolerate addition of nitrates in July, and felt very ill. (4) Hypokalemia: Potassium 3.8 today, improved. Prior to hospital treatment with amiodarone discontinued, patient remains in sinus rhythm, had Zio quality assurance monitor body in follow-up as an outpatient, with no recurrence of the post PCI AF noted in July. -Pt has visit with Dr Lambert scheduled in November, will move it up to Oct. Admission and Anticipated Discharge Date Admission Date: October 21, 2020 Subjective Patient seen in follow-up of chest discomfort. Chest discomfort, with pleuritic component, improved overnight last night. Telemetry reveals sinus rhythm in the 50 to 60 bpm range. Review of Systems Review of Systems: All systems reviewed & are unremarkable except as noted in HPI & below Physical Exam Physical Exam: Temp Pulse Resp BP Pulse Ox 36.7 C 63 18 128/82 95 10/23/20 11:30 10/23/20 11:30 10/23/20 11:30 10/23/20 11:30 10/23/20 11:30 Constitutional: WD/WN, vitals as above Respiratory: normal respiratory effort, lungs clear to auscultation Cardiovascular: RRR, no murmur, no edema Neurologic: PERRL, EOMI, accommodation nl, no face palsy, no dysarthria Results & Data ([facility]) Vital Signs (Past 12 Hours) Vital Signs Temp Pulse Pulse Resp BP BP Pulse Ox 10/23/20 11:30 36.7 C 63 18 128/82 95 10/23/20 08:00 36.5 C 62 20 163/82 H 96 10/23/20 03:30 36.5 C 60 57 L 18 145/79 H 96 10/23/20 00:37 36.6 C 10/23/20 00:36 65 20 173/91 H 95 Laboratory Results CBC 10/23/20 Range/Units 06:15 WBC 8.27 (4.8-10.8) K/uL RBC 4.45 (4.2-5.4) M/uL Hgb 14.6 (12.0-16.0) g/dL Hct 42.5 (37-47) % Plt Count 211 (130-400) K/uL Neut # (Auto) 4.73 (1.4-6.5) K/uL Lymph # (Auto) 2.31 (1.2-3.4) K/uL [place] # (Auto) 0.92 H (0.11-0.59) K/uL Eos # (Auto) 0.27 (0-0.5) K/uL Baso # (Auto) 0.02 (0-0.2) K/uL Comprehensive Metabolic Panel 10/23/20 Range/Units 06:15 Sodium 134 L (136-145) mmol/L Potassium 3.8 D (3.5-5.1) mmol/L Chloride 102 (98-107) mmol/L Carbon Dioxide 26 (21-32) mmol/L BUN 17 D (7-18) mg/dl Creatinine 0.81 (0.6-1.2) mg/dl Glucose 91 (70-99) mg/dl Calcium 9.5 (8.5-10.1) mg/dl Intake and Output 10/22/20 10/23/20 10/23/20 22:59 06:59 14:59 Intake Total 0 650 Balance 0 649 Intake: Oral 0 650 Other: # Unmeasured Voids 1 1 Weight 53.8 kg Weight Measurement Method Built in [facility]
[2020-10-23] MEDS: COLCHICINE 0.6 MG TAB PO SCH (12:30)
[2020-10-23] MEDS: amLODIPine BESYLATE 5 MG TAB PO SCH (12:31)
[2020-10-23] MEDS: ASPIRIN 81 MG ECTAB PO SCH (12:31)
[2020-10-23] MEDS: METOPROLOL SUCC 50MG EXT REL TAB PO SCH (12:32)
[2020-10-23] MEDS: hydroCHLOROthiazide 25 MG TAB PO SCH (12:32)
[2020-10-23] MEDS: CLOPIDOGREL BISULFATE 75 MG TAB PO SCH (12:32)
[2020-10-23] MEDS: ROSUVASTATIN CALCIUM 10 MG TAB PO SCH (12:33)
[2020-10-23] MEDS: CITALOPRAM 20 MG TAB PO SCH (12:33)
[2020-10-23] MEDS: LOSARTAN POTASSIUM 50 MG TAB PO SCH (12:35)
--- NOTE | 2020-10-23 13:17 | Myocardial Perfusion Study ---
Date of Service October 23, 2020 Myocardial Perfusion Study k Myocardial Perfusion Study Report [place] Act 112: Negative Procedure: 1. Myocardial perfusion study performed in multiple views/images 2. Combined low intensity exercise/Lexiscan pharmacologic stress ECG Indications: 1. Chest discomfort, history of coronary heart disease Ordering physician: Sid Olivares DO Procedural details: For the stress portion of the study, Lexiscan 0.4 mg was intravenously administered followed by a saline flush. This was followed by [ ] mCi of technetium 99m Cardiolite, injected at [ ] on [ ]. 30 minutes following the injection, imaging of the heart was performed in multiple projections. For the rest portion of the study, [ ] mCi technetium 99m Cardiolite was injected intravenously at [ ] on [ ]. 1 hour following the injection, imaging of the heart was performed in the same projections. Stress Protocol: Combined low intensity exercise/pharmacologic myocardial perfusion imaging study was performed. Patient ambulated on the treadmill at 1 mph, 0% incline, for 3 minutes prior to, and 1 minute and 30 seconds following the administration of Lexiscan 0.4 mg intravenously. Baseline EKG revealed sinus rhythm in the 70s, with diffuse repolarization changes. The stress EKG was felt to be nondiagnostic with ongoing repolarization changes that became slightly more prominent during exercise/Lexiscan administration. The test was terminated having reached the end of the predetermined protocol. The heart rate response to stress was normal. The blood pressure response to stress was normal. Resting ECG demonstrated: Normal sinus rhythm with diffuse repolarization changes in the inferior and precordial leads. Maximum heart rate: 88 bpm Maximal, age-predicted heart rate: 57% Resting blood pressure: 130/78mmHg Maximum blood pressure: 150/palp mmHg Significant ST changes: Baseline repolarization changes at rest that became slightly more prominent with exercise. Arrhythmia: Rare PVCs, no sustained arrhythmias Symptoms: Patient described transient shortness of breath and chest heaviness with the administration of Lexiscan, symptoms resolved early in the post stress recovery interval. Findings: Rotating raw imaging demonstrated no significant lung uptake. There is no significant motion artifact. Heart size appeared normal. Stress SPECT images revealed normal perfusion. Resting SPECT images revealed normal perfusion. Ejection fraction: 66% Wall motion: normal No significant transient ischemic dilation. Impression: 1.Normal perfusion images without evidence of infarct or inducible ischemia. 2.Nondiagnostic EKG response, with noted baseline diffuse repolarization changes that became slightly more prominent during stress. 3.Normal gated wall motion, normal LVEF, 66%.
--- NOTE | 2020-10-23 13:18 | Communication Note ---
Date of Service: October 23, 2020 Stress test results discussed with patient at bedside. I believe the stress test represents a low clinical likelihood of residual hemodynamically signif icant coronary heart disease.
--- NOTE | 2020-10-23 13:36 | Hospitalist Progress Note ---
Date of Service October 23, 2020 Assessment & Plan (1) Pleuritic chest pain: Presented with substernal chest pain which is worse with deep breathing and sometimes leaning forward Sounds like pleuritic pain and could be pleuropericardial pain Serial cardiac enzymes have been negative for any ACS and echo is showing minimally increased circumferential pericardial effusion compared with that in July 2020 Appreciate cardiology input and recommendation Colchicine has been added and likely to have short-term prednisone Symptomatically much better since admit Pain seems to be resolved Will go home on colchicine as prescribed and she will not take anymore amiodarone and there was discussed with her. (2) Substernal chest pain: As above Has multivessel coronary artery disease with drug-eluting stents to the LAD, circumflex and RCA territories in July 2020 Status post negative nuclear stress test performed on 10/23/2020 (3) CAD (coronary artery disease): Has significant CAD as documented below No ACS during this admission (4) Tobacco use disorder: Quit smoking briefly following placement of stents but has since resumed Discussed importance of cessation with patient (5) HTN (hypertension): Continue losartan, metoprolol succinate, hctz, amlodipine (6) Dyslipidemia: (7) Anxiety: Continue citalopram, home dose Ativan PRN Notes from admitting physician: This is a 69yo F with a PMH of CAD with multivessel disease status post PCI to RCA/LAD/circumflex in July 2020 complicated by circumferential pericardial effusion and brief paroxysmal A. fib post stenting, continued tobacco use disorder, hypertension, anxiety and other medical problems as a below who presents with chest pain x 3 days. Chest pain Worsening central pain with radiation to R shoulder x 3 days, worse with exertion, coughing, deep breaths and leaning forward Ddx angina in the setting of CAD with recent stents and poor dual antiplatelet adherence in the past week vs pericarditis/pericardial effusion in setting of reports of worsening pain with leaning forward or deep breath Initial troponin negative. ECG with TWI of inferior leads (present on previous ECG), lateral TWI have resolved since previous. D-dimer negative. CXR without acute process Received aspirin 324mg and ntg in ED with improvement of symptoms Telemetry monitoring, trend troponin, continue dual antiplatelet therapy Cardiology consult placed. NPO after midnight except meds. 2D echo ordered Continue losartan, metoprolol succinate, statin, amiodarone DVT Ppx: SQ heparin Code status: FULL PCP: Bridger Khalil Dispo: Tele observation. Plan to return home once medically stable. Discharge home today Admission and Anticipated Discharge Date Admission Date: October 21, 2020 Subjective 10/22/2020 The patient was seen and examined in ICU with telemetry status She has significant CAD status post multiple stent placement and was admitted with chest pain Her pain in the is in the precordium and also back of the chest and is worse with deep breathing She denies any shortness of breath associated with it She has not been having any rest pain since admission 10/23/2020 The patient was seen and examined in telemetry unit She is status post nuclear stress test which came out to be negative He did not have any more chest pain and denies any other symptoms Review of Systems Review of Systems: All systems reviewed and are unremarkable except as noted below Respiratory: + pain on inspiration; no cough and no dyspnea Cardiovascular: no chest pain (1 deep breathing and also leaning forward) Physical Exam Physical Exam: Lying in bed comfortably Constitutional: average body habitus; no acute distress and not ill appearing Eyes: PERRL, conjunctivae normal, anicteric sclerae ENMT: external ear and nose normal, oropharynx normal Neck: trachea midline, no thyromegaly Respiratory: no respiratory distress Auscultation: lungs clear to auscultation bilaterally Cardiovascular: Rate/Rhythm: regular rate and regular rhythm Heart Sounds: no murmur Extremities: no edema Gastrointestinal (Abdomen): Inspection/Auscultation: normal bowel sounds; abdomen not distended Percussion/Palpation: abdomen soft; abdomen nontender Musculoskeletal: No acute arthritis in any joint Psychiatric: A+Ox3, euthymic affect Lymphatic: no cervical or axillary lymphadenopathy Results & Data Results & Data ([facility]) Vital Signs (Past 12 Hours) Vital Signs Temp Pulse Pulse Resp BP Pulse Ox 10/23/20 11:30 36.7 C 63 18 128/82 95 10/23/20 08:00 36.5 C 62 20 163/82 H 96 10/23/20 03:30 36.5 C 60 57 L 18 145/79 H 96 Laboratory Results Short CBC 10/23/20 Range/Units 06:15 WBC 8.27 (4.8-10.8) K/uL Hgb 14.6 (12.0-16.0) g/dL Hct 42.5 (37-47) % Plt Count 211 (130-400) K/uL BMP 10/23/20 06:15 Sodium 134 L Potassium 3.8 D Chloride 102 Carbon Dioxide 26 BUN 17 D Creatinine 0.81 Glucose 91 Calcium 9.5 Medications Administered Current Inpatient Medications Acetaminophen (Acetaminophen 325 Mg Tab) 650 mg PO Q4H PRN PRN Reason: Pain or Fever Stop: 11/20/20 20:46 Last Admin: 10/21/20 23:49 Dose: 650 mg Documented by: Amlodipine Besylate (Amlodipine Besylate 5 Mg Tab) 5 mg PO DAILY SAM Stop: 11/21/20 08:59 Last Admin: 10/23/20 12:31 Dose: 5 mg Documented by: Aspirin (Aspirin 81 Mg Ectab) 81 mg PO DAILY SAM Stop: 11/21/20 08:59 Last Admin: 10/23/20 12:31 Dose: 81 mg Documented by: Citalopram Hydrobromide (Citalopram 20 Mg Tab) 20 mg PO DAILY SAM Stop: 11/21/20 08:59 Last Admin: 10/23/20 12:33 Dose: 20 mg Documented by: Clopidogrel Bisulfate (Clopidogrel Bisulfate 75 Mg Tab) 75 mg PO DAILY SAM Stop: 11/21/20 08:59 Last Admin: 10/23/20 12:32 Dose: 75 mg Documented by: Colchicine (Colchicine 0.6 Mg Tab) 0.6 mg PO BID SAM Stop: 11/21/20 11:29 Last Admin: 10/23/20 12:30 Dose: 0.6 mg Documented by: Heparin Sodium (Porcine) (Heparin Sod 5,000 Unit/0.5 Ml Vial) 5,000 units SQ Q8 SAM Stop: 11/20/20 21:59 Last Admin: 10/23/20 12:37 Dose: Not Given Documented by: Hydrochlorothiazide (Hydrochlorothiazide 25 Mg Tab) 25 mg PO DAILY SAM Stop: 11/21/20 08:59 Last Admin: 10/23/20 12:32 Dose: 25 mg Documented by: Lorazepam (Lorazepam 0.5 Mg Tab) 0.5 mg PO TID PRN PRN Reason: Anxiety Stop: 11/20/20 20:46 Last Admin: 10/22/20 23:29 Dose: 0.5 mg Documented by: Losartan Potassium (Losartan Potassium 50 Mg Tab) 100 mg PO DAILY SAM Stop: 11/21/20 08:59 Last Admin: 10/23/20 12:35 Dose: 100 mg Documented by: Metoprolol Succinate (Metoprolol Succ 50mg Ext Rel Tab) 100 mg PO DAILY [facility] Stop: 11/21/20 08:59 Last Admin: 10/23/20 12:32 Dose: 100 mg Documented by: Nitroglycerin (Nitroglycerin Sl 0.4 Mg/Tab Tab) 0.4 mg SL UD PRN PRN Reason: Chest Pain Stop: 11/20/20 20:46 Ondansetron HCl (Ondansetron Inj 2 Mg/Ml 2 Ml Vial) 4 mg IV Q6H PRN PRN Reason: Nausea Stop: 11/20/20 20:46 Polyethylene Glycol (Polyethylene (Miralax) 17 Gm Pack) 17 gm PO DAILY PRN PRN Reason: Constipation Stop: 11/20/20 20:46 Rosuvastatin Calcium (Rosuvastatin Calcium 10 Mg Tab) 10 mg PO DAILY [facility] Stop: 11/21/20 08:59 Last Admin: 10/23/20 12:33 Dose: 10 mg Documented by:
--- NOTE | 2020-10-23 17:42 | Discharge Summary ---
Date of Service October 23, 2020 Admission HPI Per Admitting Provider This is a 69yo F with a PMH of CAD with multivessel disease status post PCI to RCA/LAD/circumflex in July 2020 complicated by circumferential pericardial effusion and brief paroxysmal A. fib post stenting, continued tobacco use disorder, hypertension, anxiety and other medical problems as a below who presents with chest pain x 3 days. Describes chest pain as centrally located pain that is aching and pulsing in nature. Made worse with coughing, deep breaths, leaning forward or exertion from walking upstairs. States that it was more soreness for the past 2 days but became painful today with radiation to r ight shoulder. Does feel similar to previous chest pain back in July. Did improve with ntg. Notably, patient ran out of aspirin 1 week ago. States she has been taking all other medications, including Plavix. Still smoking 5 cigarillos cigars daily. Also endorsing chills with productive cough with yellow sputum with marrero speckles. Covid test negative. No fever, headache, lightheadedness, palp itations, wheezing, nausea, vomiting, abdominal pain, dysuria, diarrhea or constipation. Admission Exam Per Admitting Provider Physical Exam: General Appearance: WD/WN, vitals as above, NAD, sitting up in bed, pleasant, conversing easily Head: normocephalic, atraumatic Eyes: normal inspection, PERRL, conjunctivae normal, anicteric sclerae ENT: external ear and nose normal, oropharynx normal Neck: normal visual inspection, trachea midline, no thyromegaly Respiratory: normal respiratory effort, lungs clear to auscultation, no wheeze, rales, rhonchi. No accessory muscle use Cardiovascular: regular rate, rhythm, no murmur, normal peripheral pulses, no BLE edema. Vessels: no JVD Chest: normal inspection of chest Abdomen/GI: normal bowel sounds, soft, nontender, no hepatosplenomegaly Extremities/Musculoskeletal: no cyanosis or clubbing, extremities motor strength 5/5 Neurologic: PERRL, EOMI, accommodation nl, no face palsy, no dysarthria, CN's II-XI intact bilaterally and moves all extremities Psychiatric: A+Ox3, euthymic affect Skin: no rashes, normal color, warm/dry Principal Diagnosis Pleuritic chest pain, CAD status post WEI to the LAD, circumflex and RCA territories July 2020, hypertension Discharge Exam Constitutional average body habitus; no acute distress and not ill appearing Eyes PERRL, conjunctivae normal, anicteric sclerae ENMT external ear and nose normal, oropharynx normal Neck trachea midline, no thyromegaly Respiratory normal respiratory effort, lungs clear to auscultation no respiratory distress Auscultation: lungs clear to auscultation bilaterally Cardiovascular Rate/Rhythm: regular rate and regular rhythm Heart Sounds: no murmur Extremities: no edema Gastrointestinal (Abdomen) Inspection/Auscultation: normal bowel sounds; abdomen not distended Percussion/Palpation: abdomen soft; abdomen nontender Psychiatric A+Ox3, euthymic affect Lymphatic no cervical or axillary lymphadenopathy Discharge Data Allergies Allergy/AdvReac Type Severity Reaction Status Date / Time morphine AdvReac Intermediate sick as Verified 10/21/20 18:48 per px Consultations 10/21/20 18:36 ED Decision to Admit Stat 10/21/20 20:47 Consult Cardiology Routine Hospital Course (1) Pleuritic chest pain: Presented with substernal chest pain which is worse with deep breathing and sometimes leaning forward Sounds like pleuritic pain and could be pleuropericardial pain Serial cardiac enzymes have been negative for any ACS and echo is showing minimally increased circumferential pericardial effusion compared with that in July 2020 Appreciate cardiology input and recommendation Colchicine has been added and likely to have short-term prednisone Symptomatically much better since admit Pain seems to be resolved Will go home on colchicine as prescribed and she will not take anymore ami odarone and there was discussed with her. (2) Substernal chest pain: As above Has multivessel coronary artery disease with drug-eluting stents to the LAD, ci rcumflex and RCA territories in July 2020 Status post negative nuclear stress test performed on 10/23/2020 (3) CAD (coronary artery disease): Has significant CAD as documented below No ACS during this admission (4) Tobacco use disorder: Quit smoking briefly following placement of stents but has since resumed Discussed importance of cessation with patient (5) HTN (hypertension): Continue losartan, metoprolol succinate, hctz, amlodipine (6) Dyslipidemia: (7) Anxiety: Continue citalopram, home dose Ativan PRN Notes from admitting physician: This is a 69yo F with a PMH of CAD with multivessel disease status post PCI to RCA/LAD/circumflex in July 2020 complicated by circumferential pericardial effusion and brief paroxysmal A. fib post stenting, continued tobacco use disorder, hypertension, anxiety and other medical problems as a below who presents with chest pain x 3 days. Chest pain Worsening central pain with radiation to R shoulder x 3 days, worse with exertion, coughing, deep breaths and leaning forward Ddx angina in the setting of CAD with recent stents and poor dual antiplatelet adherence in the past week vs pericarditis/pericardial effusion in setting of reports of worsening pain with leaning forward or deep breath Initial troponin negative. ECG with TWI of inferior leads (present on previous ECG), lateral TWI have resolved since previous. D-dimer negative. CXR without acute process Received aspirin 324mg and ntg in ED with improvement of symptoms Telemetry monitoring, trend troponin, continue dual antiplatelet therapy Cardiology consult placed. NPO after midnight except meds. 2D echo ordered Continue losartan, metoprolol succinate, statin, amiodarone DVT Ppx: SQ heparin Code status: FULL PCP: Bridger Khalil Dispo: Tele observation. Plan to return home once medically stable. Discharge home today Total Time Total Time Spent Total Time Spent (In Minutes): 35 minutes Total Time Includes: Examination of the Patient, Discharge Planning, Medication Reconciliation and Communication With Other Providers Discharge Plan Discharge Items Patient Disposition: Home - Self-Care Reason For Visit: CHEST PAIN Discharge Diagnosis: Pleuritic chest pain, CAD status post WEI to the LAD, circumflex and RCA territories July 2020, hypertension Condition on Discharge: Good Activity: Resume your previous activity Non-emergency contact: Primary Care Provider Call non-emergency contact if: you have any medication questions and your symptoms worsen Follow-up/Referrals: Diaz Khalil, DO [Primary Care Provider] - (Date & Time 10/28/2020 2:00 PMProvider Diaz Khalil [facility] ) Diet: Heart Healthy and Low Sodium (2gm) Addtl Attending Provider Instructions: Please take it easy for the next few days Current medications as directed Pending Studies at Discharge: No Stand-Alone Forms: My [employer], Smoking Cessation Medications and DC Order Prescriptions: New colchicine [Colcrys] 0.6 mg Tablet 0.6 mg PO UD 30 Days Qty: 30 RF: 0 Continued metoprolol succinate 100 mg tablet extended release 24 hr 100 mg PO DAILY RF: 0 clopidogrel 75 mg tablet 75 mg PO DAILY RF: 0 amlodipine [Norvasc] 5 mg tablet 5 mg PO DAILY RF: 0 aspirin 81 mg Tablet,Delayed Release (Dr/Ec) 81 mg PO DAILY RF: 0 citalopram 20 mg tablet 20 mg PO DAILY RF: 0 lorazepam 0.5 mg tablet 0.5 mg PO TID PRN (Reason: Anxiety) RF: 0 nitroglycerin [Nitrostat] 0.4 mg Tablet, Sublingual 0.4 mg sublingual UD PRN (Reason: Chest Pain) RF: 0 hydrochlorothiazide 25 mg tablet 25 mg PO DAILY RF: 0 losartan [Cozaar] 100 mg tablet 100 mg PO DAILY RF: 0 rosuvastatin 10 mg tablet 10 mg PO DAILY RF: 0 Discontinued amiodarone [Pacerone] 200 mg tablet 200 mg PO QAM RF: 0 Discharge Orders: Discharge Order (Routine); Ordered 10/23/20 Ordered By: Vikash Lamb Admission Data Admit Date/Time: 10/21/20 20:07 Attending Provider: Vikash Lamb Admit Provider: Xochitl Forte I. Primary Care Provider: Diaz Khalil Other Providers: Xochitl Forte I. ; Sid Olivares Other Interventions: Discharge Summary Assessment (RN) Last Done: 10/23/20 13:55
== END 2020-10-23 14:39 | disposition home or self-care (01) ==
LOC: 1E 17:02 → ED 17:02 → SUATTDRO 20:07 → 1E 20:27 → 2S 10-23 03:34

== ENCOUNTER 2022-09-25 18:25 | Inpatient (IN) ==
[2022-09-25] MEDS ORDERED: ONDANSETRON INJ 2 MG/ML 2 ML VIAL IV STA (18:32)
[2022-09-25] MEDS ORDERED: MoRPHine SULFATE 4 MG/ML 1 ML CARP\\VIAL IV STA (18:32)
--- NOTE | 2022-09-25 18:34 | Emergency Department Note ---
Impression & Plan Closed hip fracture ADMIT ED Provider Note HPI: The patient is a 71-year-old female who presents the emergency department with a chief complaint of left hip pain. Patient states that about 2 hours prior to arrival to the ED she fell outside on the ice directly onto her left hip where she has acute pain. On arrival here to the ED the patient has neurovascular and motor function intact distally in the left foot, she has her leg held in flexion at the knee and slight internal rotation. Patient denies any other injuries or focal complaint of pain on arrival patient is noted to be on Plavix, denies any other antiplatelet agents or blood thinners. ROS: -MSK: Left hip pain *10 point review systems was conducted and is otherwise negative unless stated above *Outpatient medications and allergy history reviewed PE: General: Alert HEENT: Normocephalic, trachea midline Eyes: Extraocular eye movement is intact, no scleral erythema Pulmonary: Clear to auscultation bilaterally, no wheezing Cardio: Regular rate and rhythm GI: Abdomen is soft, nontender : No suprapubic tenderness MSK: Limited range of motion of the left hip secondary to pain, palpable d orsalis pedis pulses appreciated distally in left foot, motor and sensory function is otherwise intact distally in the left lower extremity Skin: No evidence of rash Neuro: Alert, no focal deficits Psychiatric: 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 Patient is otherwise stable here in the ED, denies any other injuries. Hemoglobin is stable, there is a leukocytosis which I suspect is reactive in nature. Patient is on Plavix but denies being on any blood thinners. Case was discussed with on-call orthopedics, Dr. Heaton, who is in agreement for consultation. Case was then discussed with the on-call hospitalist for [facility], Dr. Mccullough, and patient was admitted in stable condition for further care. Diagnosis: 1. Closed hip fracture, left side 2. Mechanical fall Disposition: Admission Manuel Rand DO Emergency Medicine Past Med/Surg History Medical History Anxiety CAD (coronary artery disease) Dyslipidemia HTN (hypertension) Tobacco use disorder Surgical History Hx of tonsillectomy lingual tonsil S/P coronary artery stent placement PCI to RCA, LAD and circumflex in July 2020 Social History Smoking Status: Current some day smoker Tobacco Type: Cigars Second Hand Exposure: No; Hx Alcohol Use: Yes Alcohol type: hard liquor Hx Substance Use: No Preferred Language: French Communication Ability: Effective Dance Hall Host/Hostess Required: No Beliefs That Will Affect Care: None Current Living Situation: Significant Other Feels Safe at Home: Yes Assistive Devices: Denture - Upper, Denture - Lower and Glasses Allergies Allergies Allergy/AdvReac Type Severity Reaction Status Date / Time morphine AdvReac Intermediate [place] Verified 09/25/22 19:00 "crazy" Home Meds Home Medications Medication Instructions Recorded Confirmed amlodipine 5 mg tablet (Norvasc) 5 mg PO DAILY 10/21/20 09/25/22 citalopram 20 mg tablet 20 mg PO DAILY 10/21/20 09/25/22 clopidogrel 75 mg tablet 75 mg PO DAILY 10/21/20 09/25/22 lorazepam 0.5 mg tablet 0.5 mg PO HS 10/21/20 09/25/22 losartan 100 mg tablet (Cozaar) 100 mg PO DAILY 10/21/20 09/25/22 metoprolol succinate 100 mg 100 mg PO DAILY 10/21/20 09/25/22 tablet,extended release 24 hr nitroglycerin 0.4 mg sublingual 0.4 mg sublingual DIRECTED PRN 10/21/20 09/25/22 tablet (Nitrostat) Chest Pain rosuvastatin 10 mg tablet 10 mg PO DAILY 10/21/20 09/25/22 Collagen/Vital Protein 1 dose PO DAILY 09/25/22 09/25/22 Results & Data (ED) Vital Signs Vital Signs - 24 hr 09/25/22 18:30 09/25/22 19:20 Temperature 36.5 C Temperature Source Oral Pulse Rate 63 Pulse Rate [Finger] 75 Pulse Rhythm Regular Pulse Strength Normal Respiratory Rate 20 18 Respiratory Effort / Characteristics Non-Labored Spontaneous Respiratory Depth Normal Respiratory Pattern Regular Blood Pressure 204/100 H Blood Pressure [Right Arm] 184/89 H Blood Pressure Mean 134 Blood Pressure Mean [Right Arm] 120 Blood Pressure Position Sitting Pulse Oximetry 98 96 Oxygen Delivery Method Room Air Room Air Sepsis Recent Fever Within 48 Hours No Sepsis New/Unexplained Change in Mental Status No Sepsis Action Taken by Nursing No Action Required Laboratory Data Result diagrams: 09/25/22 19:00 09/25/22 19:00 Lab Results 09/25/22 09/25/22 09/25/22 Range/Units 19:00 19:00 19:00 WBC 16.96 H (4.8-10.8) K/ul RBC 4.73 (3.93-5.22) M/uL Hgb 15.8 (12.0-16.0) g/dl Hct 45.0 H (34.1-44.9) % MCV 95.1 (80.0-100.0) fL MCH 33.4 (25.0-34.0) pg MCHC 35.1 (32.0-36.0) g/dL RDW Std Deviation 43.3 (36.4-46.3) fL RDW Coeff of [place] 12.3 (11.5-14.5) % Plt Count 206 (130-400) K/uL MPV 10.2 (9.4-12.3) fL Immature Gran % (Auto) 0.5 % Neut % (Auto) 83.4 % Lymph % (Auto) 10.7 % [place] % (Auto) 4.5 % Eos % (Auto) 0.5 % Baso % (Auto) 0.4 % Neut # (Auto) 14.14 H (1.4-6.5) K/uL Lymph # (Auto) 1.81 (1.2-3.4) K/uL [place] # (Auto) 0.76 (0.24-0.82) K/uL Eos # (Auto) 0.09 (0-0.50) K/uL Baso # (Auto) 0.07 (0-0.2) K/uL Immature Gran # (Auto) 0.09 H (0.00-0.02) K/uL PT 11.0 (9.0-12.0) Seconds INR 1.0 (0.9-1.1) Sodium 136 (136-145) mmol/L Potassium 3.6 (3.5-5.1) mmol/L Chloride 101 (98-107) mmol/L Carbon Dioxide 27 (21-32) mmol/L Anion Gap 8 (3-11) BUN 17 (6-23) mg/dl Creatinine 0.74 (0.6-1.2) mg/dl Est Cr Clr Drug Dosing Not Reportable Est GFR ( Amer) 95.1 ml/min Est GFR (Non-Af Amer) 82.1 ml/min BUN/Creatinine Ratio 23.0 H (10-20) Glucose 97 (70-99(Fasting)) mg/dl Calcium 9.4 (8.5-10.1) mg/dl Total Bilirubin 0.6 (0.2-1.0) mg/dl AST 46 H (13-39) U/L ALT 62 H (7-52) U/L Alkaline Phosphatase 100 (34-104) U/L Total Protein 8.5 H (6.0-8.3) gm/dl Albumin 4.9 (3.4-5.0) gm/dl Globulin 3.6 (2.5-4.0) gm/dl Albumin/Globulin Ratio 1.4 (0.9-2) Administered Medications Discontinued Medications Fentanyl Citrate (Fentanyl Citrate 100 Mcg/2 Ml Vial) 50 mcg IV NOW STA Stop: 09/25/22 19:06 Last Admin: 09/25/22 19:14 Dose: 50 mcg Documented By: Morphine Sulfate (Morphine Sulfate 4 Mg/Ml 1 Ml Carp\\Vial) 4 mg IV NOW STA Stop: 09/25/22 18:33 Last Admin: 09/25/22 19:21 Dose: Not Given Documented By: Ondansetron HCl (Ondansetron Inj 2 Mg/Ml 2 Ml Vial) 4 mg IV NOW STA Stop: 09/25/22 18:33 Last Admin: 09/25/22 19:14 Dose: 4 mg Documented By: Imaging Data Radiologist's Impression: Hip/Pelvis X-Ray 09/25/22 18:31 XR hip ZACH 2v w pelvis CLINICAL HISTORY: Left hip pain. COMPARISON STUDY: CT of the abdomen and pelvis May 24, 2022. FINDINGS: Sacroiliac joints and symphysis pubis are intact. Note is made of an acute comminuted mildly displaced intertrochanteric fracture of the left femur. No pelvic or proximal right femoral fracture is present. Moderate degenerative c hanges of the hips are present. IMPRESSION: Acute comminuted mildly displaced intertrochanteric fracture of the left femur. ACT 112: Negative or not required by law. Electronically signed by: Epi Palmer M.D. 09/25/2022 7:09 PM Discharge Plan Visit Data Chief Complaint: Hip Pain Stated Complaint: Fall, Hip pain ED Provider: Manuel Rand Discharge Problem: Closed hip fracture Patient Disposition: Admitted As Inpatient Forms Stand Alone Forms: [facility] Prescriptions Prescriptions: No Action metoprolol succinate 100 mg tablet extended release 24 hr 100 mg PO DAILY clopidogrel 75 mg tablet 75 mg PO DAILY amlodipine [Norvasc] 5 mg tablet 5 mg PO DAILY citalopram 20 mg tablet 20 mg PO DAILY lorazepam 0.5 mg tablet 0.5 mg PO HS nitroglycerin [Nitrostat] 0.4 mg Tablet, Sublingual 0.4 mg sublingual DIRECTED PRN (Reason: Chest Pain) Rx Instructions: PLACE ONE TABLET UNDER THE TONGUE EVERY 5 MINUTES FOR UP TO 3 DOSES OVER 15 MINUTES IF NEEDED FOR CHEST PAIN losartan [Cozaar] 100 mg tablet 100 mg PO DAILY rosuvastatin 10 mg tablet 10 mg PO DAILY Collagen/Vital Protein 1 dose PO DAILY Referrals Referrals: Diaz Khalil, [Primary Care Provider] -
[2022-09-25] MEDS ORDERED: fentaNYL citrate 100 MCG/2 ML VIAL IV STA (19:05)
--- NOTE | 2022-09-25 19:10 | XRay Report ---
XR hip ZACH 2v w pelvis CLINICAL HISTORY: Left hip pain. COMPARISON STUDY: CT of the abdomen and pelvis May 24, 2022. FINDINGS: Sacroiliac joints and symphysis pubis are intact. Note is made of an acute comminuted mildl y displaced intertrochanteric fracture of the left femur. No pelvic or proximal right femoral fractur e is present. Moderate degenerative changes of the hips are present. IMPRESSION: Acute comminuted mildly displaced intertrochanteric fracture of the left femur. ACT 112: Negative or not required by law. Electronically signed by: Epi Palmer M.D. 09/25/2022 7:09 PM
[2022-09-25 19:12] LABS: Basophils # (auto) 0.07 K/uL (0-0.2); Basophils % (auto) 0.4 %; Eosinophils # (auto) 0.09 K/uL (0-0.50); Eosinophils % (auto) 0.5 %; Hemoglobin 15.8 g/dl (12.0-16.0); Immature Granulocytes # (auto) 0.09 K/uL (0.00-0.02); Immature Granulocytes % (auto) 0.5 %; Lymphocytes # (auto) 1.81 K/uL (1.2-3.4); Lymphocytes % (auto) 10.7 %; Mean Corpuscular Hemoglobin 33.4 pg (25.0-34.0); Mean Corpuscular Hgb Conc 35.1 g/dL (32.0-36.0); Mean Corpuscular Volume 95.1 fL (80.0-100.0); Mean Platelet Volume 10.2 fL (9.4-12.3); Monocytes # (auto) 0.76 K/uL (0.24-0.82); Monocytes % (auto) 4.5 %; Neutrophils # (auto) 14.14 K/uL (1.4-6.5); Neutrophils % (auto) 83.4 %; Platelet Count 206 K/uL (130-400); RDW Coefficient of Variation 12.3 % (11.5-14.5); RDW Standard Deviation 43.3 fL (36.4-46.3); Red Blood Count 4.73 M/uL (3.93-5.22); White Blood Count 16.96 K/ul (4.8-10.8)
[2022-09-25 19:35] LABS: Alanine Aminotransferase 62 U/L (7-52); Albumin Globulin Ratio 1.4 (0.9-2); Albumin Level 4.9 gm/dl (3.4-5.0); Alkaline Phosphatase 100 U/L (34-104); Anion Gap 8 (3-11); Aspartate Aminotransferase 46 U/L (13-39); Bilirubin,Total 0.6 mg/dl (0.2-1.0); Blood Urea Nitrogen 17 mg/dl (6-23); Calcium 9.4 mg/dl (8.5-10.1); Carbon Dioxide 27 mmol/L (21-32); Chloride 101 mmol/L (98-107); Est GFR (African American) 95.1 ml/min; Est GFR (Non-African American) 82.1 ml/min; Globulin 3.6 gm/dl (2.5-4.0); Glucose 97 mg/dl (70-99(Fasting)); Potassium 3.6 mmol/L (3.5-5.1); Sodium 136 mmol/L (136-145); Total Protein 8.5 gm/dl (6.0-8.3)
[2022-09-25] MEDS ORDERED: MoRPHine SULFATE 2 MG/ML CARP IV PRN (21:49)
[2022-09-25] MEDS ORDERED: POLYETHYLENE (MIRALAX) 17 GM PACK PO PRN (21:50)
[2022-09-25] MEDS ORDERED: MAGNESIUM HYDROXIDE SUSP 30 ML UDC PO PRN (21:50)
[2022-09-25] MEDS ORDERED: ALUMINUM/MAGNESIUM SUSP 30 ML UDC PO PRN (21:50)
[2022-09-25] MEDS ORDERED: ONDANSETRON INJ 2 MG/ML 2 ML VIAL IV PRN (21:50)
[2022-09-25] MEDS ORDERED: ACETAMINOPHEN 325 MG TAB PO PRN (21:50)
--- NOTE | 2022-09-25 21:52 | History & Physical Report ---
Date of Service September 25, 2022 Assessment & Plan (1) Closed hip fracture: Plan Fall Left hip pain Acute comminuted mildly displaced intertrochanteric fracture of left femur Patient came in with fall, mechanical. Admitting hip and pelvic x-ray reviewed. Admitting labs fairly WNL except for leukocytosis. Pain management, Ortho consult, SCDs for DVT prophylaxis for now, n.p.o. midnight, Bell catheter for comfort. Ortho aware per ER Leukocytosis and hypertensive urgency: Likely secondary to acute stress. Follow WBC in a.m., as needed hydralazine, patient reports taking her blood pressure medications for today, resume home blood pressure medication. Expect to improve with pain management. 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 Patient slipped on ice on her stone patio, fell on left side, came in with acute left hip pain and difficulty ambulating. Patient denies any warmth/nausea/dizziness/lightheadedness/chest pain/palpitations/loss of consciousness/seizure-like activity surrounding the event. Patient denies any fever/chills/chest pain/palpitations/belly pain/acute changes in her bowel or bladder habit/sore throat. Patient reports occasional allergy cough. Patient is smokes cigars up to 5/day, has been smoking for more than 10 years. Patient drinks 1-2 drinks couple of times a week, denies use of recreational drug. 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 Per patient, she can easily walk 2-3 blocks or 2-3 flight of stairs without getting winded/short of breath/chest pain/lightheadedness. Medications were reviewed with the patient. Allergies Allergy/AdvReac Type Severity Reaction Status Date / Time morphine AdvReac Intermediate [place] Verified 09/25/22 19:00 "crazy" Home Medications Medication Instructions Recorded Confirmed Type amlodipine 5 mg tablet (Norvasc) 5 mg PO DAILY 10/21/20 09/25/22 History citalopram 20 mg tablet 20 mg PO DAILY 10/21/20 09/25/22 History clopidogrel 75 mg tablet 75 mg PO DAILY 10/21/20 09/25/22 History lorazepam 0.5 mg tablet 0.5 mg PO HS 10/21/20 09/25/22 History losartan 100 mg tablet (Cozaar) 100 mg PO DAILY 10/21/20 09/25/22 History metoprolol succinate 100 mg 100 mg PO DAILY 10/21/20 09/25/22 History tablet,extended release 24 hr nitroglycerin 0.4 mg sublingual 0.4 mg sublingual DIRECTED PRN 10/21/20 09/25/22 History tablet (Nitrostat) Chest Pain rosuvastatin 10 mg tablet 10 mg PO DAILY 10/21/20 09/25/22 History Collagen/Vital Protein 1 dose PO DAILY 09/25/22 09/25/22 History Past Med/Surg History Medical History Anxiety CAD (coronary artery disease) Dyslipidemia HTN (hypertension) Tobacco use disorder Surgical History Hx of tonsillectomy lingual tonsil S/P coronary artery stent placement PCI to RCA, LAD and circumflex in July 2020 Social History Smoking Status: Current some day smoker Tobacco Type: Cigars Second Hand Exposure: No; Hx Alcohol Use: Yes Alcohol type: hard liquor Hx Substance Use: No Preferred Language: Bahamian Communication Ability: Effective Customer Support Engineer Required: No Beliefs That Will Affect Care: None Current Living Situation: Significant Other Feels Safe at Home: Yes Assistive Devices: Denture - Upper, Denture - Lower and Glasses Review of Systems Review of Systems: Negative otherwise mentioned in HPI Physical Exam Physical Exam: GENERAL: Alert and oriented x3. NAD, on RA. HEENT: No pallor, no icterus. Pupils equal, round and reactive to light. Oral mucosa moist. NECK: No JVD, no neck masses. HEART: S1 and S2 heard. Regular rate and rhythm. No murmur, no gallop. RESPIRATORY SYSTEM: Normal AP diameter. No accessory muscle use. No wheezing, no crackles. ABDOMEN: Soft, bowel sounds present, nontender, no distention. CENTRAL NERVOUS SYSTEM: No facial droop. Speech is clear. Obeys simple commands. Moves extremities. EXTREMITIES: No edema, no erythema seen. Left hip tender/ no bruise, decrease ROM Lt LE. Distal NV status wnl. UC w/ yellow urine collection noted in bag. Results & Data Results & Data ([facility]) Vital Signs (Past 12 Hours) Vital Signs Temp Pulse Pulse Resp BP BP Pulse Ox 09/25/22 21:00 66 19 176/91 H 94 09/25/22 19:20 75 18 184/89 H 96 09/25/22 18:30 36.5 C 63 20 204/100 H 98 O2 Del Method 09/25/22 21:00 Room Air 09/25/22 19:20 Room Air 09/25/22 18:30 Room Air (1) Closed hip fracture Encounter type: initial encounter Laterality: left Qualified Code(s): S72.002A - Fracture of unspecified part of neck of left femur, initial encounter for closed fracture
[2022-09-25] MEDS ORDERED: SODIUM CHLORIDE 0.9% 1000ML 1,000 ML IV SCH (22:00)
[2022-09-25] MEDS ORDERED: oxyCODONE/ACETAMINOPHEN 5mg/325mg TAB PO ONE (22:32)
[2022-09-26] MEDS ORDERED: LORazepam 0.5 MG TAB PO STA (01:59)
--- NOTE | 2022-09-26 06:51 | Anesthesiology Consultation ---
Date of Service September 26, 2022 History Surgery Operation Date: 09/26/22 06:45 Proposed Procedures p Intramedullary Herber Femur left(Left) - Antonio Jean DO Height/Weight Height: 5 ft 1 in Weight: 48.8 kg Allergies Allergy/AdvReac Type Severity Reaction Status Date / Time morphine AdvReac Intermediate [place] Verified 09/25/22 19:00 "crazy" Medications Home Medications Medication Instructions Recorded Confirmed Last Taken amlodipine 5 mg tablet (Norvasc) 5 mg PO DAILY 10/21/20 09/25/22 09/25/22 citalopram 20 mg tablet 20 mg PO DAILY 10/21/20 09/25/22 09/25/22 clopidogrel 75 mg tablet 75 mg PO DAILY 10/21/20 09/25/22 09/25/22 lorazepam 0.5 mg tablet 0.5 mg PO HS 10/21/20 09/25/22 09/24/22 losartan 100 mg tablet (Cozaar) 100 mg PO DAILY 10/21/20 09/25/22 09/25/22 metoprolol succinate 100 mg 100 mg PO DAILY 10/21/20 09/25/22 09/25/22 tablet,extended release 24 hr nitroglycerin 0.4 mg sublingual 0.4 mg sublingual DIRECTED PRN 10/21/20 09/25/22 Unknown tablet (Nitrostat) Chest Pain rosuvastatin 10 mg tablet 10 mg PO DAILY 10/21/20 09/25/22 09/25/22 Collagen/Vital Protein 1 dose PO DAILY 09/25/22 09/25/22 09/25/22 Active Medications Generic Name Dose Route Start Last Admin Trade Name Freq PRN Reason Stop Dose Admin Sodium Chloride 1,000 mls @ 65 mls/hr 09/25/22 22:00 09/26/22 01:40 Nss 1000ml IV 09/27/22 04:46 65 mls/hr .[id number] SAM Administration Morphine Sulfate 2 mg 09/25/22 21:49 09/26/22 01:44 Morphine Sulfate 2 Mg/Ml Carp IV 10/09/22 21:48 2 mg Q6H PRN Administration severe pain 7-10 Past Medical History Medical History Anxiety CAD (coronary artery disease) Depression Dyslipidemia HTN (hypertension) Tobacco use disorder Past Surgical History Surgical History Hx of tonsillectomy lingual tonsil S/P coronary artery stent placement PCI to RCA, LAD and circumflex in July 2020 Social History Smoking Status: Current every day smoker tobacco type: cigars Smoking cigarettes per day: small cigars - 5/day Hx Alcohol Use: Yes Alcohol type: hard liquor alcohol intake frequency: a few times a week Hx Substance Use: No substance use type: does not use Physical Exam Vital Signs Last Vital Signs Temp 37.0 C 09/26/22 04:30 Pulse 56 L 09/26/22 04:30 Resp 20 09/26/22 04:30 BP 159/65 H 09/26/22 04:30 Pulse Ox 93 09/26/22 04:30 O2 Del Method 09/26/22 04:30 Testing Laboratory Results 09/25/22 19:00 09/25/22 19:00 PT 11.0 Seconds (9.0-12.0) 09/25/22 19:00 INR 1.0 (0.9-1.1) 09/25/22 19:00
[2022-09-26 07:09] LABS: Hematocrit (blood only) 37.7 % (34.1-44.9); Hemoglobin 13.5 g/dl (12.0-16.0); Mean Corpuscular Hemoglobin 33.3 pg (25.0-34.0); Mean Corpuscular Hgb Conc 35.8 g/dL (32.0-36.0); Mean Corpuscular Volume 92.9 fL (80.0-100.0); Mean Platelet Volume 10.5 fL (9.4-12.3); Platelet Count 188 K/uL (130-400); RDW Coefficient of Variation 12.7 % (11.5-14.5); RDW Standard Deviation 43.3 fL (36.4-46.3); Red Blood Count 4.06 M/uL (3.93-5.22); White Blood Count 11.04 K/ul (4.8-10.8)
[2022-09-26 07:41] LABS: BUN Creatinine Ratio 20.7 (10-20); Calcium 8.8 mg/dl (8.5-10.1); Creatinine Clr Calc Pharmacy 48.2 ml/min; Est GFR (Non-African American) 72.5 ml/min; Magnesium 1.8 mg/dl (1.7-2.4); Phosphorus 4.7 mg/dl (2.5-4.9); Potassium 3.9 mmol/L (3.5-5.1)
[2022-09-26] MEDS: ROSUVASTATIN CALCIUM 10 MG TAB PO SCH (08:07)
[2022-09-26] MEDS: CLOPIDOGREL BISULFATE 75 MG TAB PO SCH (08:08)
[2022-09-26] MEDS: LOSARTAN POTASSIUM 50 MG TAB PO SCH (08:08)
[2022-09-26] MEDS: amLODIPine BESYLATE 5 MG TAB PO SCH (08:08)
[2022-09-26] MEDS: CITALOPRAM 20 MG TAB PO SCH (08:09)
[2022-09-26] MEDS: METOPROLOL SUCC 50MG EXT REL TAB PO SCH (08:09)
--- NOTE | 2022-09-26 09:06 | Anesthesiology Consultation ---
Date of Service September 26, 2022 Assessment & Plan (1) Encounter for pre-operative examination: History Surgery Operation Date: 09/26/22 06:45 Proposed Procedures p Intramedullary Herber Femur left(Left) - Antonio Jean DO Height/Weight Height: 5 ft 1 in Weight: 48.8 kg Allergies Allergy/AdvReac Type Severity Reaction Status Date / Time morphine AdvReac Intermediate [place] Verified 09/25/22 19:00 "crazy" Medications Home Medications Medication Instructions Recorded Confirmed Last Taken amlodipine 5 mg tablet (Norvasc) 5 mg PO DAILY 10/21/20 09/25/22 09/25/22 citalopram 20 mg tablet 20 mg PO DAILY 10/21/20 09/25/22 09/25/22 clopidogrel 75 mg tablet 75 mg PO DAILY 10/21/20 09/25/22 09/25/22 lorazepam 0.5 mg tablet 0.5 mg PO HS 10/21/20 09/25/22 09/24/22 losartan 100 mg tablet (Cozaar) 100 mg PO DAILY 10/21/20 09/25/22 09/25/22 metoprolol succinate 100 mg 100 mg PO DAILY 10/21/20 09/25/22 09/25/22 tablet,extended release 24 hr nitroglycerin 0.4 mg sublingual 0.4 mg sublingual DIRECTED PRN 10/21/20 09/25/22 Unknown tablet (Nitrostat) Chest Pain rosuvastatin 10 mg tablet 10 mg PO DAILY 10/21/20 09/25/22 09/25/22 Collagen/Vital Protein 1 dose PO DAILY 09/25/22 09/25/22 09/25/22 Active Medications Generic Name Dose Route Start Last Admin Trade Name Freq PRN Reason Stop Dose Admin Amlodipine Besylate 5 mg 09/26/22 09:00 09/26/22 08:08 Amlodipine Besylate 5 Mg Tab PO 10/26/22 08:59 5 mg DAILY SAM Administration Citalopram Hydrobromide 20 mg 09/26/22 09:00 09/26/22 08:09 Citalopram 20 Mg Tab PO 10/26/22 08:59 20 mg DAILY SAM Administration Clopidogrel Bisulfate 75 mg 09/26/22 09:00 09/26/22 08:08 Clopidogrel Bisulfate 75 Mg Tab PO 10/26/22 08:59 75 mg DAILY SAM Administration Sodium Chloride 1,000 mls @ 65 mls/hr 09/25/22 22:00 09/26/22 01:40 Nss 1000ml IV 09/27/22 04:46 65 mls/hr .[id number] SAM Administration Losartan Potassium 100 mg 09/26/22 09:00 09/26/22 08:08 Losartan Potassium 50 Mg Tab PO 10/26/22 08:59 100 mg DAILY SAM Administration Metoprolol Succinate 100 mg 09/26/22 09:00 09/26/22 08:09 Metoprolol Succ 50mg Ext Rel Tab PO 10/26/22 08:59 100 mg DAILY SAM Administration Morphine Sulfate 2 mg 09/25/22 21:49 09/26/22 01:44 Morphine Sulfate 2 Mg/Ml Carp IV 10/09/22 21:48 2 mg Q6H PRN Administration severe pain 7-10 Rosuvastatin Calcium 10 mg 09/26/22 09:00 09/26/22 08:07 Rosuvastatin Calcium 10 Mg Tab PO 10/26/22 08:59 10 mg DAILY SAM Administration NPO Date Last Intake of Fluids: 09/25/22 Time Last Intake of Fluids: 00:00 Date Last Intake of Solids: 09/25/22 Time Last Intake of Solids: 19:15 Past Medical History Medical History Anxiety CAD (coronary artery disease) Depression Dyslipidemia HTN (hypertension) Tobacco use disorder Past Surgical History Surgical History Hx of tonsillectomy lingual tonsil S/P coronary artery stent placement PCI to RCA, LAD and circumflex in July 2020 Social History Smoking Status: Current every day smoker tobacco type: cigars Smoking cigarettes per day: small cigars - 5/day Hx Alcohol Use: Yes Alcohol type: hard liquor alcohol intake frequency: a few times a week Hx Substance Use: No substance use type: does not use Physical Exam Vital Signs Last Vital Signs Temp 36.9 C 09/26/22 07:38 Pulse 75 09/26/22 07:38 Resp 20 09/26/22 07:38 BP 152/70 H 09/26/22 07:38 Pulse Ox 91 09/26/22 07:38 O2 Del Method 09/26/22 07:38 Testing Laboratory Results 09/26/22 06:41 09/26/22 06:41 PT 11.0 Seconds (9.0-12.0) 09/25/22 19:00 INR 1.0 (0.9-1.1) 09/25/22 19:00 Electrocardiogram Date: 09/25/22 Normal sinus rhythm Possible Left atrial enlargement Possible Anterior infarct , age undetermined ST & T wave abnormality, consider inferolateral ischemia Abnormal ECG When compared with ECG of 24-MAY-2022 15:24, T wave inversion now evident in Lateral leads Chest X-Ray Date: 05/24/22 IMPRESSION: No acute chest disease. Echocardiogram Date: 10/22/22 EF: 60-65% hypokinesis in the basal inferior wall, mild LVH Cardiac Catheterization Date: 08/14/20 Patient previously underwent cardiac catheterization yesterday and was found to have multivessel disease. Underwent PCI to RCA with 3 drug-eluting stents placed (2 to mid RCA, 1 from distal RCA into PDA). Post procedure stents well expanded but noted to have residual stenosis in right marginal branch and posterior lateral branch. Overnight patient had intermittent chest pain, labile blood pressures with ST depressions on ECG. Troponin elevated and peaked at 44 this morning. Repeat echocardiogram showed preserved LV function with subtle basal inferior wall motion abnormality. Patient brought back to [facility] for reevaluation of RCA and staged PCI of LAD, circumflex.
--- NOTE | 2022-09-26 10:05 | Electrocardiogram Report ---
Test Reason : Blood Pressure : / mmHG Vent. Rate : 060 BPM Atrial Rate : 060 BPM P-R Int : 140 ms QRS Dur : 084 ms QT Int : 406 ms P-R-T Axes : 076 078 -73 degrees QTc Int : 406 ms Normal sinus rhythm Possible Left atrial enlargement Abnormal ECG When compared with ECG of 24-MAY-2022 15:24, T wave inversion now evident in Lateral leads Confirmed by Zac Horton ([id number]) on 09/26/2022 10:05:14 AM Referred By: REFERRED SELF Confirmed By:Sukhjinder Horton
[2022-09-26] MEDS ORDERED: BUPIVACAINE 0.25% 30 ML VIAL ONE (11:01)
[2022-09-26] MEDS ORDERED: ATROPINE SULFATE 0.1 MG/ML 10ML SYR IV PRN (11:34)
[2022-09-26] MEDS ORDERED: ONDANSETRON INJ 2 MG/ML 2 ML VIAL IV PRN (11:34)
[2022-09-26] MEDS ORDERED: HYDROmorphone INJ 1 MG/ML SYRINGE IV PRN (11:34)
[2022-09-26] MEDS ORDERED: ePHEDrine sulfate 50 MG/ML AMP IV PRN (11:34)
[2022-09-26] MEDS ORDERED: fentaNYL citrate 100 MCG/2 ML VIAL IV PRN (11:34)
--- NOTE | 2022-09-26 11:36 | History & Physical Bridge Note ---
Date of Service September 26, 2022 History & Physical Bridge Note I have examined the patient, reviewed the History & Physical and in the interval since the performance of the History & Physical I have noted the following changes of clinical significance: no changes note. met with the patient. We had a lengthy discussion regarding risk benefits potential complications of left hip cephalomedullary nail. These include but are not limited to infection, neurovascular injury, DVT, nonunion, malunion, hardware failure and need for future surgery. After reviewing these she elected to proceed with surgical intervention and written consent was obtained.
--- NOTE | 2022-09-26 11:39 | Orthopedic Consultation ---
Date of Consultation September 26, 2022 Assessment & Plan (1) Closed hip fracture: Plan 71-year-old female with displaced left intertrochanteric femur fracture Nonweightbearing left lower extremity Bedrest Pain control Hold DVT prophylaxis for OR N.p.o. Medical management Plan for OR today for left hip cephalomedullary nail History of Present Illness Reason for Consultation: Left intertrochanteric femur fracture Attending Physician: Kaiser Araujo MD History of Present Illness 71-year-old female presenting after sustaining a ground-level fall onto her left hip. She reports that she was trying to untangle her dog's leash whenever she slipped and fell on her porch landing directly on her left hip. She was taken the emergency department where radiographs were obtained demonstrating a displaced left intertrochanteric femur fracture. She was admitted to medical service and orthopedics was consulted for operative management. Allergies Allergy/AdvReac Type Severity Reaction Status Date / Time morphine AdvReac Intermediate [place] Verified 09/25/22 19:00 "crazy" Home Medications Medication Instructions Recorded Confirmed Type amlodipine 5 mg tablet (Norvasc) 5 mg PO DAILY 10/21/20 09/25/22 History citalopram 20 mg tablet 20 mg PO DAILY 10/21/20 09/25/22 History clopidogrel 75 mg tablet 75 mg PO DAILY 10/21/20 09/25/22 History lorazepam 0.5 mg tablet 0.5 mg PO HS 10/21/20 09/25/22 History losartan 100 mg tablet (Cozaar) 100 mg PO DAILY 10/21/20 09/25/22 History metoprolol succinate 100 mg 100 mg PO DAILY 10/21/20 09/25/22 History tablet,extended release 24 hr nitroglycerin 0.4 mg sublingual 0.4 mg sublingual DIRECTED PRN 10/21/20 09/25/22 History tablet (Nitrostat) Chest Pain rosuvastatin 10 mg tablet 10 mg PO DAILY 10/21/20 09/25/22 History Collagen/Vital Protein 1 dose PO DAILY 09/25/22 09/25/22 History Patient History Medical History Anxiety CAD (coronary artery disease) Depression Dyslipidemia HTN (hypertension) Tobacco use disorder Surgical History Hx of tonsillectomy lingual tonsil S/P coronary artery stent placement PCI to RCA, LAD and circumflex in July 2020 Social History Smoking Status: Current every day smoker Tobacco Type: Cigars Cigarettes Per Day: small cigars - 5/day; Second Hand Exposure: No; Hx Alcohol Use: Yes Alcohol type: hard liquor Hx Substance Use: No Preferred Language: Kyrgyz Communication Ability: Effective Engine Head Repairer Required: No Beliefs That Will Affect Care: None Current Living Situation: Significant Other Other Information That Helps Us Care for You: No Feels Safe at Home: Yes Safety Concerns: Feels Safe At This Time Assistive Devices: Glasses Assistive Devices Comment: just reading glasses Physical Exam Constitutional: No acute distress, alert and oriented person place time Musculoskeletal: Left lower extremity -Shortened and externally rotated -Unable to straight leg raise, positive logroll -Sensation intact to light touch saphenous/superficial peroneal nerve/deep peroneal nerve/tibial/sural nerve distributions -Fires TA/EHL/GSC -Palpable dorsalis pedis and posterior tibial pulses Results & Data ([facility]) Vital Signs (Past 12 Hours) Vital Signs Temp Pulse Pulse Resp BP BP Pulse Ox 09/26/22 07:38 36.9 C 75 20 152/70 H 91 09/26/22 04:30 37.0 C 56 L 20 159/65 H 93 09/26/22 01:04 61 09/26/22 00:58 36.9 C 63 18 176/75 H 95 O2 Del Method 09/26/22 07:38 Room Air 09/26/22 04:30 Room Air 09/26/22 01:04 09/26/22 00:58 Room Air Diagnostic Findings Left hip radiographs demonstrate displaced left intertrochanteric femur fracture (1) Closed hip fracture Encounter type: initial encounter Laterality: left Qualified Code(s): S72.002A - Fracture of unspecified part of neck of left femur, initial encounter for closed fracture
[2022-09-26] MEDS ORDERED: fentaNYL citrate 100 MCG/2 ML VIAL ONE ×2 (11:53→12:26)
[2022-09-26] MEDS ORDERED: ceFAZolin 330 MG/ML 1 GM VIAL ONE (12:10)
[2022-09-26] MEDS ORDERED: KETAMINE 50 MG/5 ML SYRINGE ONE (12:24)
[2022-09-26] MEDS ORDERED: ROCURONIUM BROMIDE 10 MG/ML 5 ML VIAL IV ONE (12:42)
[2022-09-26] MEDS ORDERED: PROPOFOL IV EMULSION 10 MG/ML 20 ML VIAL IV ONE (12:42)
[2022-09-26] MEDS ORDERED: LIDOCAINE 2% MPF LOCAL 5 ML VIAL INFIL ONE (12:42)
[2022-09-26] MEDS ORDERED: DEXAMETHASONE SOD INJ 4 MG/ML VIAL ONE (12:42)
[2022-09-26] MEDS ORDERED: ONDANSETRON INJ 2 MG/ML 2 ML VIAL ONE (12:42)
[2022-09-26] MEDS ORDERED: GLYCOPYRROLATE 0.2 MG/ML VIAL ONE (12:42)
[2022-09-26] MEDS ORDERED: NEOSTIGMINE METHYLSULFATE 1 MG/ML 10ML VIAL ONE (12:42)
--- NOTE | 2022-09-26 12:55 | Fluoroscopy Report ---
FL hip LT 2-3V CLINICAL HISTORY: LT HIP ORIF COMPARISON STUDY: None. FLUOROSCOPY TIME: 53 seconds.. FINDINGS: 4 fluoroscopic spot images of the left hip demonstrate internal fixation of a left hip frac ture. The hardware appears intact. The alignment appears near-anatomic. IMPRESSION: Fluoroscopic assistance provided for internal fixation of a left hip fracture. ACT 112: Negative or not required by law. Electronically signed by: Lebron Strickland M.D. 09/26/2022 12:53 PM
--- NOTE | 2022-09-26 12:57 | Post Operative Brief Note ---
Immediate Post Op Note v1 Date of Surgery September 26, 2022 Pre & Post Diagnosis Operation Date: 09/26/22 06:45 Pre-Op Diagnosis: Left hip fracture Post-Op Diagnosis: Left hip fracture I identified the patient and participated in the time-out.: Yes Procedure Operation Date: 09/26/22 06:45 Actual Procedures p Intramedullary Herber Femur left(Left) - Antonio Jean DO Surgeon Antonio Jean DO Inspector Experimental Assembly None Estimated Blood Loss 75 Findings Consistent with Post-Op Diagnosis See dictation Drains Bell Catheter Complications None
--- NOTE | 2022-09-26 13:02 | Operative Report ---
Post Operative Report Pre & Post Diagnosis Operation Date: 09/26/22 06:45 Pre-Op Diagnosis: Left hip fracture Post-Op Diagnosis: Left hip fracture I identified the patient and participated in the time-out.: Yes Procedure Operation Date: 09/26/22 06:45 Actual Procedures p Intramedullary Herber Femur left(Left) - Antonio Jean DO Surgeon Antonio Jean DO Well Site Drilling Engineer None Estimated Blood Loss 75 Findings Consistent with Post-Op Diagnosis See dictation Specimens None Complications None Indications 71-year-old female who is presented to [facility] emergency department after sustaining ground-level fall onto her left hip. In the emergency department she was found to have a left intertrochanteric femur fracture. She was admitted to medical service and orthopedics was consulted for operative management. Preoperatively I met with the patient we lengthy discussion regarding risk benefits potential complications of left hip cephalomedullary nail. After reviewing these she elected proceed with surgical intervention and written consent was obtained. Description of Procedure Implants: Synthes TFNA 11 mm x 170 mm 130 degree, 95 mm TFNA fenestrated screw, 5 mm x 34 mm*Drive locking screw Patient was appropriate identified in the preoperative holding area and the left lower extremity was marked. She was then taken back to the operative suite where she received general anesthesia as well as antibiotics per protocol. She was then transferred over to the manual fracture table. Using the assistance of C-arm fluoroscopy her fracture was reduced to a satisfactory position. She was then prepped and draped in the standard orthopedic fashion and timeout was then performed. A 3 cm incision just superior to the tip of the trochanter was then made through the skin and subcutaneous tissue and gluteal fascia. A threaded guidewire was then advanced through the tip of the trochanter into the medullary canal. Its position was confirmed on AP and lateral fluoroscopy. Canal opening reamer was then used to open the proximal canal. An 11 mm x 170 mm nail was then inserted. The nail was noted to be tight distally therefore a ball-tipped guidewire was placed through the nail and the nail was removed. The canal was then sequentially reamed up to a 12.5 mm reamer. The nail was then reinserted which was noted to have good fit and not be too tight. Ball-tipped guidewire was then removed. The proximal outrigger was then attached to the aiming arm. Incision was made for the lag screw through the skin subcutaneous tissue and IT band fascia. Triple sleeve guide was then advanced down to bone. A threaded guidewire was then advanced through the lateral cortex into the femoral head and a center center position just beneath the subchondral bone. Length of the guidewire was then measured and a lateral cortical reamer was then used to open the lateral cortex followed by a tapered reamer set to 95 mm. A tap was then used to prepare the lag screw site. A 95 mm lag screw was then inserted and then compressed to provide good compression at the fracture site. The nail was then locked statically at the proximal aspect. Attention was then turned to placement of the distal lag screw. Triple sleeve guide was then placed and incision was made through the skin subcutaneous tissue and IT band fascia. Guide was then advanced down to bone and drill was used to drill bicortically. A 5 mm x 34 mm locking screw was then inserted. Proximal aiming arm was then removed and final radiographs were obtained demonstrating excellent reduction of the fracture and positioning of the implant. Wounds were then copiously irrigated using normal saline solution. 10 cc of local anesthetic was injected into the proximal incision. Deep fascia was then closed using 0 Vicryl followed by 2-0 Vicryl for subcutaneous tissue and janie for the skin. Sterile dressings of Xeroform 4 x 4 gauze and Tegaderms were then applied. The patient tolerated the procedure well and was taken to recovery room in hemodynamically stable condition. I attest to the content of the Intraoperative Record and any orders documented therein. Any exceptions are noted below.
[2022-09-26] MEDS: oxyCODONE/ACETAMINOPHEN 5mg/325mg TAB PO PRN (14:08)
[2022-09-26] MEDS: SODIUM CHLORIDE 0.9% 1000ML 1,000 ML IV SCH (14:11)
--- NOTE | 2022-09-26 15:05 | Anesthesiology Progress Note ---
Date of Service September 26, 2022 Anesthesia Post Procedure Vital Signs Vital Signs: Temp Pulse Pulse Resp BP BP BP 09/26/22 14:35 36.5 C 61 18 137/75 09/26/22 14:20 36.5 C 67 18 128/75 09/26/22 02:00 36.5 C 62 18 153/76 H 09/26/22 13:30 64 17 177/86 H 09/26/22 13:20 68 14 156/87 H 09/26/22 13:40 36.8 C 62 18 167/74 H 09/26/22 13:10 75 17 145/84 H 09/26/22 13:04 36.2 C L 74 16 149/70 H 09/26/22 07:38 36.9 C 75 20 152/70 H 09/26/22 04:30 37.0 C 56 L 20 159/65 H 09/26/22 01:04 61 09/26/22 00:58 36.9 C 63 18 176/75 H 09/25/22 22:00 63 19 188/98 H 09/25/22 21:00 66 19 176/91 H 09/25/22 19:20 75 18 184/89 H 09/25/22 18:30 36.5 C 63 20 204/100 H Pulse Ox O2 Del Method O2 Flow Rate 09/26/22 14:35 95 Room Air 09/26/22 14:20 95 Room Air 09/26/22 02:00 95 Room Air 09/26/22 13:30 99 Oxymask 2 09/26/22 13:20 100 Oxymask 3 09/26/22 13:40 95 Room Air 09/26/22 13:10 99 Oxymask 4 09/26/22 13:04 95 Oxymask 5 09/26/22 07:38 91 Room Air 09/26/22 04:30 93 Room Air 09/26/22 01:04 09/26/22 00:58 95 Room Air 09/25/22 22:00 96 Room Air 09/25/22 21:00 94 Room Air 09/25/22 19:20 96 Room Air 09/25/22 18:30 98 Room Air Pain Intensity Left Hip: Pain Intensity: 2 Transfer of Care Handoff Completed per policy Notes Mental Status: alert / awake / arousable and participated in evaluation Patient Amnestic to Procedure: Yes Nausea / Vomiting: adequately controlled Pain: adequately controlled Airway Patency, RR, SpO2: stable & adequate BP & HR: stable & adequate Hydration State: stable & adequate Anesthetic Complications: no major complications apparent and Pt Satisfied with anesthetic care
--- NOTE | 2022-09-26 17:54 | Hospitalist Progress Note ---
Date of Service September 26, 2022 Assessment & Plan (1) Closed hip fracture: Plan Fall Left hip pain Acute comminuted mildly displaced intertrochanteric fracture of left femur s/p Intramedullary Herber Femur left(Left) - Antonio Jean, DO Doing well so far postoperatively Pain control, PT and OT evaluation Continue to monitor closely History of CAD No cardiac symptoms Continue metoprolol, losartan, aspirin, Plavix, Crestor Hypertension Blood pressure improving Continue above medications including amlodipine History of paroxysmal A. fib Currently in sinus rhythm Monitor on telemetry Peripheral artery disease Continue aspirin, Plavix, Crestor DVT prophylaxis Lovenox if okay with surgery Disposition PT and OT evaluation Admission and Anticipated Discharge Date Admission Date: September 25, 2022 Subjective Follow-up for left hip fracture, status post surgery, etc. seen resting in bed, not in distress, very pleasant reports moderate L hip discomfort relieved by Percocet no chest pain, dyspnea, palpitations, dizziness no nausea/vomiting no other symptoms Review of Systems 2 Review of Systems: all noted and negative except for above Physical Exam Physical Exam: General- oriented x 3, not in distress, speaks in sentences with no effort or accessory muscle use Eyes- anicteric Neck- no JVD Lungs- clear BS bilaterally, no rales/wheezes Heart- normal rate, regular rhythm; no murmurs Abdomen- normal bowel sounds, nondistended, soft, nontender Extremities- no pretibial edema, no calf tenderness L hip- dressing in place, no bleeding or discharge Neuro- alert, oriented x 3; no gross focal neurologic deficits Skin- warm & dry Results & Data Results & Data ([facility]) Vital Signs (Past 12 Hours) Vital Signs Temp Pulse Pulse Resp BP Pulse Ox O2 Del Method 09/26/22 06:10 58 L 09/26/22 16:30 36.7 C 73 18 113/60 96 Room Air 09/26/22 15:30 36.5 C 62 18 128/79 95 Room Air 09/26/22 15:00 36.6 C 61 18 122/72 95 Room Air 09/26/22 14:35 36.5 C 61 18 137/75 95 Room Air 09/26/22 14:20 36.5 C 67 18 128/75 95 Room Air 09/26/22 13:30 64 17 177/86 H 99 Oxymask 09/26/22 13:20 68 14 156/87 H 100 Oxymask 09/26/22 13:40 36.8 C 62 18 167/74 H 95 Room Air 09/26/22 13:10 75 17 145/84 H 99 Oxymask 09/26/22 13:04 36.2 C L 74 16 149/70 H 95 Oxymask 09/26/22 07:38 36.9 C 75 20 152/70 H 91 Room Air O2 Flow Rate 09/26/22 06:10 09/26/22 16:30 09/26/22 15:30 09/26/22 15:00 09/26/22 14:35 09/26/22 14:20 09/26/22 13:30 2 09/26/22 13:20 3 09/26/22 13:40 09/26/22 13:10 4 09/26/22 13:04 5 09/26/22 07:38 all noted and reviewed including below (1) Closed hip fracture Encounter type: initial encounter Laterality: left Qualified Code(s): S72.002A - Fracture of unspecified part of neck of left femur, initial encounter for closed fracture
[2022-09-26] MEDS: ceFAZolin 2000MG 2,000 MG/15 ML SYR IV SCH (18:43)
[2022-09-26] MEDS: ASPIRIN 81 MG ECTAB PO SCH (21:43)
[2022-09-26] MEDS: LORazepam 0.5 MG TAB PO SCH (21:43)
[2022-09-27] MEDS: SODIUM CHLORIDE 0.9% 1000ML 1,000 ML IV SCH (02:32)
[2022-09-27] MEDS: ceFAZolin 2000MG 2,000 MG/15 ML SYR IV SCH (03:17)
[2022-09-27 08:21] LABS: BUN Creatinine Ratio 20.5 (10-20); Calcium 7.9 mg/dl (8.5-10.1); Creatinine Clr Calc Pharmacy 50.6 ml/min; Est GFR (African American) 89.3 ml/min; Potassium 4.5 mmol/L (3.5-5.1)
[2022-09-27 08:24] LABS: Basophils # (auto) 0.01 K/uL (0-0.2); Basophils % (auto) 0.1 %; Hematocrit (blood only) 25.7 % (34.1-44.9); Hemoglobin 8.9 g/dl (12.0-16.0); Immature Granulocytes # (auto) 0.09 K/uL (0.00-0.02); Immature Granulocytes % (auto) 0.6 %; Lymphocytes # (auto) 1.59 K/uL (1.2-3.4); Lymphocytes % (auto) 11.3 %; Mean Corpuscular Hgb Conc 34.6 g/dL (32.0-36.0); Mean Corpuscular Volume 95.2 fL (80.0-100.0); Mean Platelet Volume 10.7 fL (9.4-12.3); Monocytes # (auto) 1.14 K/uL (0.24-0.82); Monocytes % (auto) 8.1 %; Neutrophils # (auto) 11.23 K/uL (1.4-6.5); Neutrophils % (auto) 79.9 %; Platelet Count 130 K/uL (130-400); RDW Coefficient of Variation 12.6 % (11.5-14.5); RDW Standard Deviation 44.3 fL (36.4-46.3); White Blood Count 14.06 K/ul (4.8-10.8)
[2022-09-27] MEDS: CLOPIDOGREL BISULFATE 75 MG TAB PO SCH (08:44)
[2022-09-27] MEDS: CITALOPRAM 20 MG TAB PO SCH (08:44)
[2022-09-27] MEDS: LOSARTAN POTASSIUM 50 MG TAB PO SCH (08:45)
[2022-09-27] MEDS: METOPROLOL SUCC 50MG EXT REL TAB PO SCH (08:45)
[2022-09-27] MEDS: amLODIPine BESYLATE 5 MG TAB PO SCH (08:45)
[2022-09-27] MEDS: ROSUVASTATIN CALCIUM 10 MG TAB PO SCH (08:45)
[2022-09-27] MEDS: ASPIRIN 81 MG ECTAB PO SCH ×2 (08:53→21:42)
[2022-09-27] MEDS ORDERED: ERGOCALCIFEROL 50,000 UNITS 1250 MCG CAP PO SCH (09:15)
--- NOTE | 2022-09-27 09:38 | Orthopedic Progress Note ---
Date of Service September 27, 2022 Assessment & Plan (1) Closed hip fracture: Plan: POD #1 s/p Intramedullary Herber Femur left PT/OT- WBAT with walker dvt prop with elida/scd/ASA will nee f/u with Dr Jean in our office 12-14 days after surgery, for appointment Agree. Seen and evaluated. Should be evaluated for osteoporosis. I discussed this with her. Should follow up with [facility] [place] nurse coordinator 10-14 days post op. Admission and Anticipated Discharge Date Admission Date: September 25, 2022 Subjective POD #1 s/p Intramedullary Herber Femur left Review of Systems Constitutional: no fever and no chills Respiratory: no cough and no dyspnea Cardiovascular: no chest pain, no dyspnea and no orthopnea Gastrointestinal: no abdominal pain, no nausea and no vomiting Physical Exam Physical Exam: Vital Signs Temp 36.6 C 09/27/22 07:35 Pulse 71 09/27/22 07:35 Resp 71 H 09/27/22 07:35 BP 149/63 H 09/27/22 07:35 Pulse Ox 95 09/27/22 07:35 O2 Del Method 09/27/22 07:35 O2 Flow Rate 2 09/26/22 13:30 Intake & Output 09/26/22 09/27/22 09/27/22 18:59 06:59 18:59 Intake Total 2575 / 4163 1588 / 4163 Output Total 400 / 1275 875 / 1275 Balance 2175 / 2888 713 / 2888 Weight 48.8 kg 50 kg Intake: IV 999 Sodium Chlorid e 0.9% 1000ML 999 000 ml @ 80 ml s/hr IV .[id number] ON LICENSE OF [facility] Rx#:[id number] IV Perioperative 1300 / 1300 Oral 275 / 875 600 / 875 Output: Estimated Blood Loss 75 / 75 Urine Amount (Ca theter) 325 / 1200 875 / 1200 Bell/Indwelli ng 325 / 1200 875 / 1200 Other: Other Intake Virgen rce ice chips Weight Measureme nt Method Built in Bedscale Musculoskeletal: Left leg: dressing clean and dry, calf soft, non-tender. able to wiggle toes, ankle plantar/dorsiflexion without pain. DP +2 Results & Data ([facility]) Vital Signs (Past 12 Hours) Vital Signs Temp Pulse Pulse Resp BP BP Pulse Ox 09/27/22 07:35 36.6 C 71 71 H 149/63 H 95 09/27/22 07:19 36.8 C 73 18 144/72 H 96 09/27/22 04:34 36.9 C 71 18 143/65 H 93 09/26/22 22:03 61 09/27/22 02:20 39.4 C H 09/26/22 23:39 36.7 C 62 18 125/67 94 O2 Del Method 09/27/22 07:35 Room Air 09/27/22 07:19 Room Air 09/27/22 04:34 Room Air 09/26/22 22:03 09/27/22 02:20 09/26/22 23:39 Room Air Laboratory Results Laboratory Results WBC 14.06 K/ul (4.8-10.8) H 09/27/22 07:23 RBC 2.70 M/uL (3.93-5.22) L 09/27/22 07:23 Hgb 8.9 g/dl (12.0-16.0) L D 09/27/22 07:23 Hct 25.7 % (34.1-44.9) L 09/27/22 07:23 MCV 95.2 fL (80.0-100.0) 09/27/22 07:23 MCH 33.0 pg (25.0-34.0) 09/27/22 07: MCHC 34.6 g/dL (32.0-36.0) 09/27/22 07:23 RDW Std Deviation 44.3 fL (36.4-46.3) 09/27/22 07:23 RDW Coeff of [place] 12.6 % (11.5-14.5) 09/27/22 07:23 Plt Count 130 K/uL (130-400) 09/27/22 07:23 MPV 10.7 fL (9.4-12.3) 09/27/22 07:23 Immature Gran % (Auto) 0.6 % 09/27/22 07: Neut % (Auto) 79.9 % 09/27/22 07:23 Lymph % (Auto) 11.3 % 09/27/22 07:23 [place] % (Auto) 8.1 % 09/27/22 07:23 Eos % (Auto) 0.0 % 09/27/22 07:23 Baso % (Auto) 0.1 % 09/27/22 07:23 Neut # (Auto) 11.23 K/uL (1.4-6.5) H 09/27/22 07:23 Lymph # (Auto) 1.59 K/uL (1.2-3.4) 09/27/22 07:23 [place] # (Auto) 1.14 K/uL (0.24-0.82) H 09/27/22 07:23 Eos # (Auto) 0.00 K/uL (0-0.50) 09/27/22 07:23 Baso # (Auto) 0.01 K/uL (0-0.2) 09/27/22 07: Immature Gran # (Auto) 0.09 K/uL (0.00-0.02) H 09/27/22 07:23 PT 11.0 Seconds (9.0-12.0) 09/25/22 19:00 INR 1.0 (0.9-1.1) 09/25/22 19:00 Sodium 135 mmol/L (136-145) L 09/27/22 07:23 Potassium 4.5 mmol/L (3.5-5.1) 09/27/22 07:23 Chloride 105 mmol/L (98-107) 09/27/22 07:23 Carbon Dioxide 27 mmol/L (21-32) 09/27/22 07:23 Anion Gap 3 (3-11) 09/27/22 07:23 BUN 16 mg/dl (6-23) 09/27/22 07:23 Creatinine 0.78 mg/dl (0.6-1.2) 09/27/22 07:23 Est Cr Clr Drug Dosing 50.6 ml/min 09/27/22 07:23 Est GFR ( Amer) 89.3 ml/min 09/27/22 07:23 Est GFR (Non-Af Amer) 77.0 ml/min 09/27/22 07:23 BUN/Creatinine Ratio 20.5 (10-20) H 09/27/22 07:23 Glucose 143 mg/dl (70-99(Fasting)) H 09/27/22 07:23 Calcium 7.9 mg/dl (8.5-10.1) L 09/27/22 07:23 Phosphorus 4.7 mg/dl (2.5-4.9) 09/26/22 06:41 Magnesium 1.8 mg/dl (1.7-2.4) 09/26/22 06:41 Total Bilirubin 0.6 mg/dl (0.2-1.0) 09/25/22 19:00 AST 46 U/L (13-39) H 09/25/22 19:00 ALT 62 U/L (7-52) H 09/25/22 19:00 Alkaline Phosphatase 100 U/L (34-104) 09/25/22 19:00 Total Protein 8.5 gm/dl (6.0-8.3) H 09/25/22 19:00 Albumin 4.9 gm/dl (3.4-5.0) 09/25/22 19:00 Globulin 3.6 gm/dl (2.5-4.0) 09/25/22 19:00 Albumin/Globulin Ratio 1.4 (0.9-2) 09/25/22 19:00 25-OH Vitamin D Total 12.8 ng/ml (30-100) L 09/27/22 07:23 SARS-CoV-2, RNA, NAAT NEGATIVE (NEGATIVE) 09/25/22 18:51 Blood Type O Positive 09/26/22 09:04 Antibody Screen NEGATIVE 09/26/22 09:04 Impressions Hip/Pelvis X-Ray 09/25/22 18:31 XR hip ZACH 2v w pelvis CLINICAL HISTORY: Left hip pain. COMPARISON STUDY: CT of the abdomen and pelvis May 24, 2022. FINDINGS: Sacroiliac joints and symphysis pubis are intact. Note is made of an acute comminuted mildly displaced intertrochanteric fracture of the left femur. No pelvic or proximal right femoral fracture is present. Moderate degenerative changes of the hips are present. IMPRESSION: Acute comminuted mildly displaced intertrochanteric fracture of the left femur. ACT 112: Negative or not required by law. Electronically signed by: Epi Palmer M.D. 09/25/2022 7:09 PM Hip X-Ray 09/26/22 07:00 FL hip LT 2-3V CLINICAL HISTORY: LT HIP ORIF COMPARISON STUDY: None. FLUOROSCOPY TIME: 53 seconds.. FINDINGS: 4 fluoroscopic spot images of the left hip demonstrate internal fixation of a left hip fracture. The hardware appears intact. The alignment appears near-anatomic. IMPRESSION: Fluoroscopic assistance provided for internal fixation of a left hip fracture. ACT 112: Negative or not required by law. Electronically signed by: Lebron Strickland M.D. 09/26/2022 12:53 PM (1) Closed hip fracture Encounter type: initial encounter Laterality: left Qualified Code(s): S72.002A - Fracture of unspecified part of neck of left femur, initial encounter for closed fracture
--- NOTE | 2022-09-27 15:55 | Hospitalist Progress Note ---
Date of Service September 27, 2022 Assessment & Plan (1) Closed hip fracture: Plan Fall Left hip pain Acute comminuted mildly displaced intertrochanteric fracture of left femur Acute blood loss anemia 09/26/2022: S/p Intramedullary Herber Femur left(Left) - Antonio Jean, Postop day #1 Hemoglobin 8.9 Blood loss likely secondary to surgery Asymptomatic, no signs of active bleeding Monitor, transfuse for hemoglobin below 7 Pain control, PT and OT evaluation Continue to monitor closely History of CAD No cardiac symptoms Continue metoprolol, losartan, aspirin, Plavix, Crestor Hypertension Blood pressure improving Continue above medications including amlodipine History of paroxysmal A. fib Currently in sinus rhythm Monitor on telemetry Peripheral artery disease Continue aspirin, Plavix, Crestor DVT prophylaxis Aspirin 81 mg p.o. twice daily Lovenox if okay with surgery Disposition PT and OT evaluation Admission and Anticipated Discharge Date Admission Date: September 25, 2022 Subjective Follow-up for left knee fracture, status post surgery, etc. Seen resting in bed, comfortable, not in distress States she is having significant left knee pain with movement, but feels fine at rest Denies chest pain, shortness of breath, palpitations, dizziness No abdominal pain, nausea vomiting No other new symptoms Review of Systems Review of Systems: all noted and negative except for above Physical Exam Physical Exam: General- oriented x 3, not in distress, speaks in sentences with no effort or accessory muscle use Eyes- anicteric Neck- no JVD Lungs- clear breath sounds bilaterally, no crackles or wheezing Heart- normal rate, regular rhythm; no murmurs Abdomen- normal bowel sounds, nondistended, soft, nontender Extremities- no pretibial edema, no calf tenderness Left hip-dressing in place, no bleeding or discharge Mild edema, no hematoma Neuro- alert, oriented x 3; no gross focal neurologic deficits Skin- warm & dry Results & Data Results & Data ([facility]) Vital Signs (Past 12 Hours) Vital Signs Temp Pulse Resp BP BP Pulse Ox O2 Del Method 09/27/22 15:10 36.8 C 69 18 116/65 95 Room Air 09/27/22 12:12 36.4 C L 77 18 141/79 H 94 Room Air 09/27/22 07:35 36.6 C 71 71 H 149/63 H 95 Room Air 09/27/22 07:19 36.8 C 73 18 144/72 H 96 Room Air 09/27/22 04:34 36.9 C 71 18 143/65 H 93 Room Air all noted and reviewed including below (1) Closed hip fracture Encounter type: initial encounter Laterality: left Qualified Code(s): S72.002A - Fracture of unspecified part of neck of left femur, initial encounter for closed fracture
[2022-09-27] MEDS: oxyCODONE/ACETAMINOPHEN 5mg/325mg TAB PO PRN (19:25)
[2022-09-27] MEDS: LORazepam 0.5 MG TAB PO SCH (21:42)
[2022-09-28] MEDS: oxyCODONE/ACETAMINOPHEN 5mg/325mg TAB PO PRN (08:28)
[2022-09-28] MEDS: CITALOPRAM 20 MG TAB PO SCH (09:39)
[2022-09-28] MEDS: CLOPIDOGREL BISULFATE 75 MG TAB PO SCH (09:39)
[2022-09-28] MEDS: ROSUVASTATIN CALCIUM 10 MG TAB PO SCH (09:40)
[2022-09-28] MEDS: LOSARTAN POTASSIUM 50 MG TAB PO SCH (09:40)
[2022-09-28] MEDS: amLODIPine BESYLATE 5 MG TAB PO SCH (09:40)
[2022-09-28] MEDS: METOPROLOL SUCC 50MG EXT REL TAB PO SCH (09:41)
[2022-09-28] MEDS: ASPIRIN 81 MG ECTAB PO SCH ×2 (09:43→21:14)
--- NOTE | 2022-09-28 12:25 | Hospitalist Progress Note ---
Date of Service September 28, 2022 Assessment & Plan (1) Closed hip fracture: Plan Fall Left hip pain Acute comminuted mildly displaced intertrochanteric fracture of left femur Acute blood loss anemia 09/26/2022: S/p Intramedullary Herber Femur left(Left) - Antonio Jean, DO Postop day #2 Hemoglobin 8.9--> pending today Blood loss likely secondary to surgery Asymptomatic, no signs of active bleeding Monitor, transfuse for hemoglobin below 7 Pain control, PT and OT evaluation: recommend acute rehab remove ervin prior to discharge Continue to monitor closely History of CAD No cardiac symptoms Continue metoprolol, losartan, aspirin, Plavix, Crestor Hypertension Blood pressure ok overall Continue above medications including amlodipine History of paroxysmal A. fib Currently in sinus rhythm Monitor on telemetry Peripheral artery disease Continue aspirin, Plavix, Crestor DVT prophylaxis Aspirin 81 mg p.o. twice daily Lovenox if okay with surgery Disposition transition to Acute Rehab once accepted Admission and Anticipated Discharge Date Admission Date: September 25, 2022 Subjective ff up for L hip fracture, s/p Mechanical Fall, s/p Surgery , etc seen resting in bed, comfortable in good spirits states she had intense pain initially during PT, but improved and actually felt good ambulating no chest pain, dyspnea, palpitations, dizziness no other symptoms Review of Systems Review of Systems: all noted and negative except for above Physical Exam Physical Exam: General- oriented x 3, not in distress, speaks in sentences with no effort or accessory muscle use Eyes- anicteric Neck- no JVD Lungs- clear breath sounds bilaterally, no rales/wheezes Heart- normal rate, regular rhythm; no murmurs Abdomen- normal bowel sounds, nondistended, soft, nontender Extremities- no pretibial edema, no calf tenderness L hip- (+) moderate edema, no hematoma, dressing in place- no bleeding, discharge Neuro- alert, oriented x 3; no gross focal neurologic deficits Skin- warm & dry Results & Data Results & Data ([facility]) Vital Signs (Past 12 Hours) Vital Signs Temp Pulse Pulse Resp BP Pulse Ox O2 Del Method 09/28/22 08:00 37.3 C 76 18 151/58 H 94 Room Air 09/28/22 03:26 37.2 C 68 16 158/58 H 91 Room Air 09/28/22 01:09 67 all noted and reviewed including below (1) Closed hip fracture Encounter type: initial encounter Laterality: left Qualified Code(s): S72.002A - Fracture of unspecified part of neck of left femur, initial encounter for closed fracture
[2022-09-28] MEDS ORDERED: oxyCODONE HCL IR 5 MG TAB (IMMEDIATE RELEASE) PO PRN (12:26)
[2022-09-28] MEDS: ACETAMINOPHEN 500 MG TAB PO SCH ×2 (14:00→21:24)
--- NOTE | 2022-09-28 14:42 | Orthopedic Progress Note ---
Date of Service September 28, 2022 Assessment & Plan (1) Closed hip fracture: Plan: POD #2 s/p Intramedullary Herber Femur left PT/OT- WBAT with walker dvt proph with elida/scd/ASA Pain management as written. will nee f/u with Dr Jean in our office 12-14 days after surgery, for appointment Orthopedics will sign off at this time. Instructions placed in the discharge section. Please call with any questions. Admission and Anticipated Discharge Date Admission Date: September 25, 2022 Subjective Postop day 2 Patient sitting up in her bed eating lunch. She was having some pain off and on. Overall it is better. Notices with her increased activity that it is helping. No other complaints at this time. Patient feels well overall. Physical Exam Physical Exam: Dressings are clean, dry, and intact. Thigh has some mild swelling consistent with surgery. Calves are soft and nontender. Neurovascular is intact. Toes are mobile. Results & Data ([facility]) Vital Signs (Past 12 Hours) Vital Signs Temp Pulse Resp BP BP Pulse Ox O2 Del Method 09/28/22 12:00 36.6 C 70 18 122/55 L 95 Room Air 09/28/22 08:00 37.3 C 76 18 151/58 H 94 Room Air 09/28/22 03:26 37.2 C 68 16 158/58 H 91 Room Air (1) Closed hip fracture Encounter type: initial encounter Laterality: left Qualified Code(s): S72.002A - Fracture of unspecified part of neck of left femur, initial encounter for closed fracture
[2022-09-28 16:16] LABS: Hematocrit (blood only) 24.1 % (34.1-44.9); Hemoglobin 8.4 g/dl (12.0-16.0); White Blood Count 11.52 K/ul (4.8-10.8)
[2022-09-28 16:18] LABS: Mean Corpuscular Hemoglobin 34.1 pg (25.0-34.0); Mean Corpuscular Hgb Conc 34.9 g/dL (32.0-36.0); Mean Platelet Volume 10.9 fL (9.4-12.3); Platelet Count 131 K/uL (130-400); RDW Coefficient of Variation 12.5 % (11.5-14.5); Red Blood Count 2.46 M/uL (3.93-5.22)
[2022-09-28 16:34] LABS: Ferritin 74.8 ng/ml (8-388)
[2022-09-28 16:43] LABS: Basophils # (auto) 0.03 K/uL (0-0.2); Basophils % (auto) 0.3 %; Eosinophils # (auto) 0.12 K/uL (0-0.50); Immature Granulocytes # (auto) 0.04 K/uL (0.00-0.02); Immature Granulocytes % (auto) 0.3 %; Lymphocytes # (auto) 2.33 K/uL (1.2-3.4); Lymphocytes % (auto) 20.2 %; Monocytes % (auto) 8.7 %; Neutrophils % (auto) 69.5 %; Platelet Estimate Normal (Normal)
[2022-09-28] MEDS: LORazepam 0.5 MG TAB PO SCH (21:24)
[2022-09-29] MEDS: ACETAMINOPHEN 500 MG TAB PO SCH ×3 (06:30→21:25)
[2022-09-29] MEDS: ASPIRIN 81 MG ECTAB PO SCH ×2 (08:11→21:25)
[2022-09-29] MEDS: ROSUVASTATIN CALCIUM 10 MG TAB PO SCH (08:11)
[2022-09-29] MEDS: CITALOPRAM 20 MG TAB PO SCH (08:11)
[2022-09-29] MEDS: POLYETHYLENE (MIRALAX) 17 GM PACK PO SCH (08:12)
[2022-09-29] MEDS: CLOPIDOGREL BISULFATE 75 MG TAB PO SCH (08:12)
[2022-09-29] MEDS: amLODIPine BESYLATE 5 MG TAB PO SCH (08:12)
[2022-09-29] MEDS: METOPROLOL SUCC 50MG EXT REL TAB PO SCH (08:12)
[2022-09-29] MEDS: LOSARTAN POTASSIUM 50 MG TAB PO SCH (08:12)
[2022-09-29] MEDS: FERROUS SULFATE 325 MG TAB PO SCH (12:03)
--- NOTE | 2022-09-29 12:13 | Hospitalist Progress Note ---
Date of Service September 29, 2022 Assessment & Plan (1) Closed hip fracture: Plan Fall Left hip pain Acute comminuted mildly displaced intertrochanteric fracture of left femur Acute blood loss anemia 09/26/2022: S/p Intramedullary Herber Femur left(Left) - Antonio Jean, DO Hemoglobin 8.9--> 8.4 Blood loss likely secondary to surgery Asymptomatic, no signs of active bleeding Monitor, transfuse for hemoglobin below 7 Pain control, PT and OT evaluation: recommend acute rehab remove ervin prior to discharge provide iron and B12 supplement Continue to monitor closely History of CAD No cardiac symptoms Continue metoprolol, losartan, aspirin, Plavix, Crestor Hypertension Blood pressure ok overall Continue above medications including amlodipine History of paroxysmal A. fib Currently in sinus rhythm Monitor on telemetry Peripheral artery disease Continue aspirin, Plavix, Crestor DVT prophylaxis - per surgery Aspirin 81 mg p.o. twice daily Disposition- transition to Acute Rehab once accepted Admission and Anticipated Discharge Date Admission Date: September 25, 2022 Subjective Pt seen in follow up for L hip fracture, s/p Mechanical Fall, s/p Surgery , etc sitting up in chair, comfortable states she worked with PT - ambulates with walker Reports some pain in thigh no chest pain, dyspnea, palpitations, dizziness + L thigh edema - pt feels it's improved from yesterday no other symptoms Review of Systems Review of Systems: All systems reviewed & are unremarkable except as noted in Subjective Physical Exam Physical Exam: General- oriented x 3, not in distress, speaks in sentences with no effort or accessory muscle use Eyes- anicteric Neck- no JVD Lungs- clear breath sounds bilaterally, no rales/wheezes Heart- normal rate, regular rhythm; no murmurs Abdomen- normal bowel sounds, nondistended, soft, nontender Extremities- no pretibial edema, no calf tenderness L hip- (+) moderate edema, no hematoma, dressing in place- no bleeding, discharge Neuro- alert, oriented x 3; no gross focal neurologic deficits Skin- warm & dry Results & Data Results & Data ([facility]) Vital Signs (Past 12 Hours) Vital Signs Temp Pulse Pulse Resp BP Pulse Ox O2 Del Method 09/29/22 11:24 36.9 C 84 18 109/72 95 Room Air 09/29/22 07:53 36.7 C 75 18 134/71 97 Room Air 09/29/22 07:19 64 09/29/22 02:57 36.8 C 70 16 163/64 H 96 Room Air Laboratory Results 09/28/22 09/28/22 09/28/22 Range/Units 15:09 15:09 15:09 WBC (4.8-10.8) K/ul RBC (3.93-5.22) M/uL Hgb (12.0-16.0) g/dl Hct (34.1-44.9) % MCV (80.0-100.0) fL MCH (25.0-34.0) pg MCHC (32.0-36.0) g/dL RDW Std Deviation (36.4-46.3) fL RDW Coeff of [place] (11.5-14.5) % Plt Count (130-400) K/uL MPV (9.4-12.3) fL Immature Gran % (Auto) % Neut % (Auto) % Lymph % (Auto) % [place] % (Auto) % Eos % (Auto) % Baso % (Auto) % Neut # (Auto) (1.4-6.5) K/uL Lymph # (Auto) (1.2-3.4) K/uL [place] # (Auto) (0.24-0.82) K/uL Eos # (Auto) (0-0.50) K/uL Baso # (Auto) (0-0.2) K/uL Immature Gran # (Auto) (0.00-0.02) K/uL Platelet Estimate (Normal) Iron 17 L (35-150) mcg/dl Transferrin 222 (200-360) mg/dl Ferritin 74.8 (8-388) ng/ml Vitamin B12 206 (180-914) pg/ml Folate 10.97 (>5.38) ng/ml 09/28/22 Range/Units 15:09 WBC 11.52 H (4.8-10.8) K/ul RBC 2.46 L (3.93-5.22) M/uL Hgb 8.4 L (12.0-16.0) g/dl Hct 24.1 L (34.1-44.9) % MCV 98.0 (80.0-100.0) fL MCH 34.1 H (25.0-34.0) pg MCHC 34.9 (32.0-36.0) g/dL RDW Std Deviation 45.0 (36.4-46.3) fL RDW Coeff of [place] 12.5 (11.5-14.5) % Plt Count 131 (130-400) K/uL MPV 10.9 (9.4-12.3) fL Immature Gran % (Auto) 0.3 % Neut % (Auto) 69.5 % Lymph % (Auto) 20.2 % [place] % (Auto) 8.7 % Eos % (Auto) 1.0 % Baso % (Auto) 0.3 % Neut # (Auto) 8.00 H (1.4-6.5) K/uL Lymph # (Auto) 2.33 (1.2-3.4) K/uL [place] # (Auto) 1.00 H (0.24-0.82) K/uL Eos # (Auto) 0.12 (0-0.50) K/uL Baso # (Auto) 0.03 (0-0.2) K/uL Immature Gran # (Auto) 0.04 H (0.00-0.02) K/uL Platelet Estimate Normal (Normal) Iron (35-150) mcg/dl Transferrin (200-360) mg/dl Ferritin (8-388) ng/ml Vitamin B12 (180-914) pg/ml Folate (>5.38) ng/ml Medications Administered Current Inpatient Medications Acetaminophen (Acetaminophen 500 Mg Tab) 1,000 mg PO Q8 [facility] Stop: 10/28/22 12:59 Last Admin: 09/29/22 11:12 Dose: Not Given Al Hydrox/Mg Hydrox/Simethicone (Aluminum/Magnesium Susp 30 Ml Udc) 15 ml PO Q4H PRN PRN Reason: Dyspepsia Stop: 10/25/22 21:49 Amlodipine Besylate (Amlodipine Besylate 5 Mg Tab) 5 mg PO DAILY [facility] Stop: 10/26/22 08:59 Last Admin: 09/29/22 08:12 Dose: 5 mg Aspirin (Aspirin 81 Mg Ectab) 81 mg PO BID [facility] Stop: 10/26/22 20:59 Last Admin: 09/29/22 08:11 Dose: 81 mg Citalopram Hydrobromide (Citalopram 20 Mg Tab) 20 mg PO DAILY [facility] Stop: 10/26/22 08:59 Last Admin: 09/29/22 08:11 Dose: 20 mg Clopidogrel Bisulfate (Clopidogrel Bisulfate 75 Mg Tab) 75 mg PO DAILY [facility] Stop: 10/26/22 08:59 Last Admin: 09/29/22 08:12 Dose: 75 mg Ergocalciferol (Ergocalciferol 50,000 Units 1250 Mcg Cap) 50,000 units PO Q7D [facility] Stop: 10/27/22 09:14 Last Admin: 09/27/22 10:13 Dose: 50,000 units Ferrous Sulfate (Ferrous Sulfate 325 Mg Tab) 325 mg PO QAM [facility] Stop: 10/29/22 11:29 Last Admin: 09/29/22 12:03 Dose: 325 mg Lorazepam (Lorazepam 0.5 Mg Tab) 0.5 mg PO HS [facility] Stop: 10/26/22 20:59 Last Admin: 09/28/22 21:24 Dose: 0.5 mg Losartan Potassium (Losartan Potassium 50 Mg Tab) 100 mg PO DAILY [facility] Stop: 10/26/22 08:59 Last Admin: 09/29/22 08:12 Dose: 100 mg Magnesium Hydroxide (Magnesium Hydroxide Susp 30 Ml Udc) 30 ml PO Q12H PRN PRN Reason: Constipation Stop: 10/25/22 21:49 Metoprolol Succinate (Metoprolol Succ 50mg Ext Rel Tab) 100 mg PO DAILY [facility] Stop: 10/26/22 08:59 Last Admin: 09/29/22 08:12 Dose: 100 mg Morphine Sulfate (Morphine Sulfate 2 Mg/Ml [place]) 2 mg IV Q6H PRN PRN Reason: severe pain 7-10 Stop: 10/09/22 21:48 Last Admin: 09/26/22 01:44 Dose: 2 mg Ondansetron HCl (Ondansetron Inj 2 Mg/Ml 2 Ml Vial) 4 mg IV Q6H PRN PRN Reason: Nausea Stop: 10/25/22 21:49 Oxycodone HCl (Oxycodone Hcl Ir 5 Mg Tab (Immediate Release)) 5 mg PO Q6H PRN PRN Reason: moderate to severe pain Stop: 10/12/22 12:25 Last Admin: 09/28/22 21:24 Dose: 5 mg Polyethylene Glycol (Polyethylene (Miralax) 17 Gm Pack) 17 gm PO DAILY PRN PRN Reason: Constipation Stop: 10/25/22 21:49 Polyethylene Glycol (Polyethylene (Miralax) 17 Gm Pack) 17 gm PO DAILY [facility] Stop: 10/29/22 08:59 Last Admin: 09/29/22 08:12 Dose: 17 gm Rosuvastatin Calcium (Rosuvastatin Calcium 10 Mg Tab) 10 mg PO DAILY [facility] Stop: 10/26/22 08:59 Last Admin: 09/29/22 08:11 Dose: 10 mg (1) Closed hip fracture Encounter type: initial encounter Laterality: left Qualified Code(s): S72.002A - Fracture of unspecified part of neck of left femur, initial encounter for closed fracture
[2022-09-29] MEDS: CYANOCOBALAMIN (B-12) 500 MCG TABLET PO SCH (13:16)
[2022-09-29] MEDS: LORazepam 0.5 MG TAB PO SCH (21:25)
[2022-09-30] MEDS: ACETAMINOPHEN 500 MG TAB PO SCH ×3 (05:14→21:40)
[2022-09-30 06:49] LABS: Hematocrit (blood only) 22.5 % (34.1-44.9); Hemoglobin 7.8 g/dl (12.0-16.0); Mean Corpuscular Hemoglobin 32.6 pg (25.0-34.0); Mean Corpuscular Hgb Conc 34.7 g/dL (32.0-36.0); Mean Corpuscular Volume 94.1 fL (80.0-100.0); Mean Platelet Volume 10.5 fL (9.4-12.3); Platelet Count 153 K/uL (130-400); RDW Standard Deviation 41.2 fL (36.4-46.3); Red Blood Count 2.39 M/uL (3.93-5.22)
[2022-09-30 07:07] LABS: BUN Creatinine Ratio 28.4 (10-20); Calcium 8.1 mg/dl (8.5-10.1); Est GFR (African American) 103.2 ml/min; Est GFR (Non-African American) 89.1 ml/min; Potassium 3.8 mmol/L (3.5-5.1)
[2022-09-30] MEDS: ASPIRIN 81 MG ECTAB PO SCH ×2 (07:37→21:39)
[2022-09-30] MEDS: CITALOPRAM 20 MG TAB PO SCH (07:38)
[2022-09-30] MEDS: ROSUVASTATIN CALCIUM 10 MG TAB PO SCH (07:38)
[2022-09-30] MEDS: METOPROLOL SUCC 50MG EXT REL TAB PO SCH (07:38)
[2022-09-30] MEDS: FERROUS SULFATE 325 MG TAB PO SCH (07:39)
[2022-09-30] MEDS: CLOPIDOGREL BISULFATE 75 MG TAB PO SCH (07:39)
[2022-09-30] MEDS: amLODIPine BESYLATE 5 MG TAB PO SCH (07:40)
[2022-09-30] MEDS: POLYETHYLENE (MIRALAX) 17 GM PACK PO SCH (07:40)
[2022-09-30] MEDS: LOSARTAN POTASSIUM 50 MG TAB PO SCH (07:40)
--- NOTE | 2022-09-30 07:40 | Hospitalist Progress Note ---
Date of Service September 30, 2022 Assessment & Plan (1) Closed hip fracture: Plan Fall Left hip pain Acute comminuted mildly displaced intertrochanteric fracture of left femur Acute blood loss anemia 09/26/2022: S/p Intramedullary Herber Femur left(Left) - Antonio DanitaMary Jean, DO Hemoglobin ~8 Blood loss likely secondary to surgery Asymptomatic, no signs of active bleeding Monitor, transfuse for hemoglobin below 7 Pain control, PT and OT evaluation: recommend acute rehab remove ervin prior to discharge provide iron and B12 supplement Continue to monitor closely 09/30 -left thigh continues to be quite edematous. Positive ecchymosis on inner thigh. Obtained ultrasound of left thigh including Doppler, no DVT, no hematoma. History of CAD No cardiac symptoms Continue metoprolol, losartan, aspirin, Plavix, Crestor Hypertension Blood pressure ok overall Continue above medications including amlodipine History of paroxysmal A. fib Currently in sinus rhythm Monitor on telemetry Peripheral artery disease Continue aspirin, Plavix, Crestor DVT prophylaxis - per surgery Aspirin 81 mg p.o. twice daily Disposition- transition to Acute Rehab once accepted Admission and Anticipated Discharge Date Admission Date: September 25, 2022 Subjective Pt seen in follow up for L hip fracture, s/p Mechanical Fall, s/p Surgery , etc sitting up in chair, comfortable states she worked with PT - ambulates with walker Reports some pain in thigh, and left thigh edema. She has ecchymosis L inner thigh. she feels left calf is more edemtous. no chest pain, dyspnea, palpitations, dizziness no other symptoms Review of Systems Review of Systems: All systems reviewed & are unremarkable except as noted in Subjective Physical Exam Physical Exam: General- oriented x 3, not in distress, speaks in sentences with no effort or accessory muscle use Eyes- anicteric Neck- no JVD Lungs- clear breath sounds bilaterally, no rales/wheezes Heart- normal rate, regular rhythm; no murmurs Abdomen- normal bowel sounds, nondistended, soft, nontender Extremities- no pretibial edema, no calf tenderness L hip- (+) moderate edema, +ecchymosis inner L thigh, dressing in place Neuro- alert, oriented x 3; no gross focal neurologic deficits Skin- warm & dry Results & Data Results & Data ([facility]) Vital Signs (Past 12 Hours) Vital Signs Temp Pulse Pulse Resp BP Pulse Ox O2 Del Method 01/05/23 07:06 60 09/30/22 03:32 145/86 H 09/30/22 02:45 36.7 C 70 16 170/74 H 96 Room Air 09/29/22 21:59 77 09/29/22 23:43 36.8 C 09/29/22 22:42 37.7 C H 71 18 137/62 96 Room Air Laboratory Results 09/30/22 09/30/22 Range/Units 06:29 06:29 WBC 8.10 (4.8-10.8) K/ul RBC 2.39 L (3.93-5.22) M/uL Hgb 7.8 L (12.0-16.0) g/dl Hct 22.5 L (34.1-44.9) % MCV 94.1 (80.0-100.0) fL MCH 32.6 (25.0-34.0) pg MCHC 34.7 (32.0-36.0) g/dL RDW Std Deviation 41.2 (36.4-46.3) fL RDW Coeff of [place] 12.0 (11.5-14.5) % Plt Count 153 (130-400) K/uL MPV 10.5 (9.4-12.3) fL Sodium 136 (136-145) mmol/L Potassium 3.8 (3.5-5.1) mmol/L Chloride 105 (98-107) mmol/L Carbon Dioxide 26 (21-32) mmol/L Anion Gap 5 (3-11) BUN 19 (6-23) mg/dl Creatinine 0.67 (0.6-1.2) mg/dl Est Cr Clr Drug Dosing 59.0 ml/min Est GFR ( Amer) 103.2 ml/min Est GFR (Non-Af Amer) 89.1 ml/min BUN/Creatinine Ratio 28.4 H (10-20) Glucose 94 (70-99(Fasting)) mg/dl Calcium 8.1 L (8.5-10.1) mg/dl Phosphorus 4.0 (2.5-4.9) mg/dl Magnesium 2.0 (1.7-2.4) mg/dl Medications Administered Current Inpatient Medications Acetaminophen (Acetaminophen 500 Mg Tab) 1,000 mg PO Q8 SAM Stop: 10/28/22 12:59 Last Admin: 09/30/22 05:14 Dose: 1,000 mg Al Hydrox/Mg Hydrox/Simethicone (Aluminum/Magnesium Susp 30 Ml Udc) 15 ml PO Q4H PRN PRN Reason: Dyspepsia Stop: 10/25/22 21:49 Amlodipine Besylate (Amlodipine Besylate 5 Mg Tab) 5 mg PO DAILY SAM Stop: 10/26/22 08:59 Last Admin: 09/29/22 08:12 Dose: 5 mg Aspirin (Aspirin 81 Mg Ectab) 81 mg PO BID [facility] Stop: 10/26/22 20:59 Last Admin: 09/29/22 21:25 Dose: 81 mg Citalopram Hydrobromide (Citalopram 20 Mg Tab) 20 mg PO DAILY [facility] Stop: 10/26/22 08:59 Last Admin: 09/29/22 08:11 Dose: 20 mg Clopidogrel Bisulfate (Clopidogrel Bisulfate 75 Mg Tab) 75 mg PO DAILY [facility] Stop: 10/26/22 08:59 Last Admin: 09/29/22 08:12 Dose: 75 mg Cyanocobalamin (Cyanocobalamin (B-12) 500 Mcg Tablet) 500 mcg PO QAM [facility] Stop: 10/29/22 12:09 Last Admin: 09/29/22 13:16 Dose: 500 mcg Ergocalciferol (Ergocalciferol 50,000 Units 1250 Mcg Cap) 50,000 units PO Q7D [facility] Stop: 10/27/22 09:14 Last Admin: 09/27/22 10:13 Dose: 50,000 units Ferrous Sulfate (Ferrous Sulfate 325 Mg Tab) 325 mg PO QAM [facility] Stop: 10/29/22 11:29 Last Admin: 09/29/22 12:03 Dose: 325 mg Lorazepam (Lorazepam 0.5 Mg Tab) 0.5 mg PO HS [facility] Stop: 10/26/22 20:59 Last Admin: 09/29/22 21:25 Dose: 0.5 mg Losartan Potassium (Losartan Potassium 50 Mg Tab) 100 mg PO DAILY [facility] Stop: 10/26/22 08:59 Last Admin: 09/29/22 08:12 Dose: 100 mg Magnesium Hydroxide (Magnesium Hydroxide Susp 30 Ml Udc) 30 ml PO Q12H PRN PRN Reason: Constipation Stop: 10/25/22 21:49 Metoprolol Succinate (Metoprolol Succ 50mg Ext Rel Tab) 100 mg PO DAILY [facility] Stop: 10/26/22 08:59 Last Admin: 09/29/22 08:12 Dose: 100 mg Morphine Sulfate (Morphine Sulfate 2 Mg/Ml Carp) 2 mg IV Q6H PRN PRN Reason: severe pain 7-10 Stop: 10/09/22 21:48 Last Admin: 09/26/22 01:44 Dose: 2 mg Ondansetron HCl (Ondansetron Inj 2 Mg/Ml 2 Ml Vial) 4 mg IV Q6H PRN PRN Reason: Nausea Stop: 10/25/22 21:49 Oxycodone HCl (Oxycodone Hcl Ir 5 Mg Tab (Immediate Release)) 5 mg PO Q6H PRN PRN Reason: moderate to severe pain Stop: 10/12/22 12:25 Last Admin: 09/28/22 21:24 Dose: 5 mg Polyethylene Glycol (Polyethylene (Miralax) 17 Gm Pack) 17 gm PO DAILY PRN PRN Reason: Constipation Stop: 10/25/22 21:49 Polyethylene Glycol (Polyethylene (Miralax) 17 Gm Pack) 17 gm PO DAILY [facility] Stop: 10/29/22 08:59 Last Admin: 09/29/22 08:12 Dose: 17 gm Rosuvastatin Calcium (Rosuvastatin Calcium 10 Mg Tab) 10 mg PO DAILY [facility] Stop: 10/26/22 08:59 Last Admin: 09/29/22 08:11 Dose: 10 mg (1) Closed hip fracture Encounter type: initial encounter Laterality: left Qualified Code(s): S72.002A - Fracture of unspecified part of neck of left femur, initial encounter for closed fracture
[2022-09-30] MEDS: CYANOCOBALAMIN (B-12) 500 MCG TABLET PO SCH (07:41)
--- NOTE | 2022-09-30 15:52 | Ultrasound Report ---
US venous doppler LE LT CLINICAL HISTORY: r/o DVT (s/p hip surg.) TECHNIQUE: Left lower extremity real-time compression venous ultrasound with Color Doppler imaging. U tilizing real-time ultrasonic imaging multiple real time high-resolution ultrasonic images with compr ession and noncompression maneuvers of the deep venous system in addition to color doppler imaging we re performed from the common femoral vein through the proximal calf veins. COMPARISON: None available at the time of this dictation. FINDINGS: Currently there is normal compressibility of the deep venous system from the common femoral vein thro ugh the proximal calf veins. No superficial venous thrombosis is identified. Impression: No evidence of deep venous thrombus. ACT 112: Negative or not required by law. Electronically signed by: Sin Rubio M.D. 09/30/2022 3:51 PM
--- NOTE | 2022-09-30 16:26 | Communication Note ---
Date of Service: September 30, 2022 ATSP due to thigh swelling. Pt seen today. She is sitting up in bed actively flexing and extending her left hip. Having pain around the incision area which has not worsened. General soreness. Thigh with swelling consistent with surgery. Thigh is soft. Ecchymosis noted medially. Pt states overall swelling is better today. No new complaints. Denies calf pain. She feels her left calf is somewhat bigger than right calf but I fell it is minor. No point tenderness of the posterior thigh. NV intact. Toes mobile. US ordered by Dr. Valdes. (Neg for DVT) Vascular US pending. Ice to thigh to help with bruising/swelling. Follow Hgb for now. Pt denies SOB,CP,LH. Continue OOB to chair.
--- NOTE | 2022-09-30 16:42 | Ultrasound Report ---
US extremity non-vascular ltd CLINICAL HISTORY: ? LLE hematoma TECHNIQUE: Real-time grayscale sonographic images of the left medial thigh were obtained. Comparison: None available at the time of this dictation. FINDINGS/IMPRESSION: There is soft tissue edema but no fluid collection in the area of bruising in th e left medial thigh. ACT 112: Negative or not required by law. Electronically signed by: Sin Rubio M.D. 09/30/2022 4:41 PM
[2022-09-30] MEDS ORDERED: CETIRIZINE HCL 10 MG TABLET PO ONE (21:04)
[2022-09-30] MEDS: LORazepam 0.5 MG TAB PO SCH (21:38)
[2022-10-01] MEDS: ACETAMINOPHEN 500 MG TAB PO SCH ×2 (05:55→13:48)
[2022-10-01] MEDS: ROSUVASTATIN CALCIUM 10 MG TAB PO SCH (07:47)
[2022-10-01] MEDS: ASPIRIN 81 MG ECTAB PO SCH (07:47)
[2022-10-01] MEDS: CYANOCOBALAMIN (B-12) 500 MCG TABLET PO SCH (07:48)
[2022-10-01] MEDS: CITALOPRAM 20 MG TAB PO SCH (07:48)
[2022-10-01] MEDS: FERROUS SULFATE 325 MG TAB PO SCH (07:48)
[2022-10-01] MEDS: CLOPIDOGREL BISULFATE 75 MG TAB PO SCH (07:48)
[2022-10-01] MEDS: POLYETHYLENE (MIRALAX) 17 GM PACK PO SCH (07:49)
[2022-10-01] MEDS: METOPROLOL SUCC 50MG EXT REL TAB PO SCH (07:56)
[2022-10-01] MEDS: amLODIPine BESYLATE 5 MG TAB PO SCH (07:56)
[2022-10-01] MEDS: LOSARTAN POTASSIUM 50 MG TAB PO SCH (07:57)
[2022-10-01 08:37] LABS: Hemoglobin 8.6 g/dl (12.0-16.0)
--- NOTE | 2022-10-01 08:55 | Hospitalist Progress Note ---
Date of Service October 01, 2022 Assessment & Plan (1) Closed hip fracture: Plan Fall Left hip pain Acute comminuted mildly displaced intertrochanteric fracture of left femur Acute blood loss anemia 09/26/2022: S/p Intramedullary Herber Femur left(Left) - Antonio Jean, DO Hemoglobin ~8 (current 8.6) Blood loss likely secondary to surgery Asymptomatic, no signs of active bleeding Monitor, transfuse for hemoglobin below 7 Pain control, PT and OT evaluation: recommend acute rehab provide iron and B12 supplement Continue to monitor closely 09/30 - left thigh continues to be quite edematous. Positive ecchymosis on inner thigh. Obtained ultrasound of left thigh including Doppler, no DVT, no hematoma. 10/01 -left thigh edema improved History of CAD No cardiac symptoms Continue metoprolol, losartan, aspirin, Plavix, Crestor Hypertension Blood pressure well controlled Continue above medications including amlodipine History of paroxysmal A. fib Currently in sinus rhythm Monitor on telemetry Peripheral artery disease Continue aspirin, Plavix, Crestor DVT prophylaxis - per surgery Aspirin 81 mg p.o. twice daily Disposition- transition to Acute Rehab today Admission and Anticipated Discharge Date Admission Date: September 25, 2022 Subjective Pt seen in follow up for L hip fracture, s/p Mechanical Fall, s/p Surgery , etc Laying in bed in NAD ambulates with walker Left thigh edema much improved. Ultrasound obtained and is negative for DVT or hematoma. no chest pain, dyspnea, palpitations, dizziness no other symptoms Review of Systems Review of Systems: All systems reviewed & are unremarkable except as noted in Subjective Physical Exam Physical Exam: General- oriented x 3, not in distress, speaks in sentences with no effort or accessory muscle use Eyes- anicteric Neck- no JVD Lungs- clear breath sounds bilaterally, no rales/wheezes Heart- normal rate, regular rhythm; no murmurs Abdomen- normal bowel sounds, nondistended, soft, nontender Extremities- no pretibial edema, no calf tenderness L hip- (+) moderate edema, +ecchymosis inner L thigh, dressing in place Neuro- alert, oriented x 3; no gross focal neurologic deficits Skin- warm & dry Results & Data Results & Data ([facility]) Vital Signs (Past 12 Hours) Vital Signs Temp Pulse Pulse Pulse Resp BP Pulse Ox 10/01/22 08:14 36.8 C 70 14 118/80 95 10/01/22 08:00 36.5 C 65 112/66 97 10/01/22 02:48 36.6 C 61 18 145/66 H 98 09/30/22 22:16 66 09/30/22 23:30 37.1 C 65 20 134/66 95 O2 Del Method 10/01/22 08:14 Room Air 10/01/22 08:00 Room Air 10/01/22 02:48 Room Air 09/30/22 22:16 09/30/22 23:30 Room Air Laboratory Results 10/01/22 Range/Units 08:04 Hgb 8.6 L (12.0-16.0) g/dl Hct 25.0 L (34.1-44.9) % Medications Administered Current Inpatient Medications Acetaminophen (Acetaminophen 500 Mg Tab) 1,000 mg PO Q8 [facility] Stop: 10/28/22 12:59 Last Admin: 10/01/22 05:55 Dose: 1,000 mg Al Hydrox/Mg Hydrox/Simethicone (Aluminum/Magnesium Susp 30 Ml Udc) 15 ml PO Q4H PRN PRN Reason: Dyspepsia Stop: 10/25/22 21:49 Amlodipine Besylate (Amlodipine Besylate 5 Mg Tab) 5 mg PO DAILY [facility] Stop: 10/26/22 08:59 Last Admin: 10/01/22 07:56 Dose: 5 mg Aspirin (Aspirin 81 Mg Ectab) 81 mg PO BID [facility] Stop: 10/26/22 20:59 Last Admin: 10/01/22 07:47 Dose: 81 mg Citalopram Hydrobromide (Citalopram 20 Mg Tab) 20 mg PO DAILY [facility] Stop: 10/26/22 08:59 Last Admin: 10/01/22 07:48 Dose: 20 mg Clopidogrel Bisulfate (Clopidogrel Bisulfate 75 Mg Tab) 75 mg PO DAILY [facility] Stop: 10/26/22 08:59 Last Admin: 10/01/22 07:48 Dose: 75 mg Cyanocobalamin (Cyanocobalamin (B-12) 500 Mcg Tablet) 500 mcg PO QAM [facility] Stop: 10/29/22 12:09 Last Admin: 10/01/22 07:48 Dose: 500 mcg Ergocalciferol (Ergocalciferol 50,000 Units 1250 Mcg Cap) 50,000 units PO Q7D [facility] Stop: 10/27/22 09:14 Last Admin: 09/27/22 10:13 Dose: 50,000 units Ferrous Sulfate (Ferrous Sulfate 325 Mg Tab) 325 mg PO QAM [facility] Stop: 10/29/22 11:29 Last Admin: 10/01/22 07:48 Dose: 325 mg Lorazepam (Lorazepam 0.5 Mg Tab) 0.5 mg PO HS [facility] Stop: 10/26/22 20:59 Last Admin: 09/30/22 21:38 Dose: 0.5 mg Losartan Potassium (Losartan Potassium 50 Mg Tab) 100 mg PO DAILY [facility] Stop: 10/26/22 08:59 Last Admin: 10/01/22 07:57 Dose: 100 mg Magnesium Hydroxide (Magnesium Hydroxide Susp 30 Ml Udc) 30 ml PO Q12H PRN PRN Reason: Constipation Stop: 10/25/22 21:49 Metoprolol Succinate (Metoprolol Succ 50mg Ext Rel Tab) 100 mg PO DAILY [facility] Stop: 10/26/22 08:59 Last Admin: 10/01/22 07:56 Dose: 100 mg Morphine Sulfate (Morphine Sulfate 2 Mg/Ml Carp) 2 mg IV Q6H PRN PRN Reason: severe pain 7-10 Stop: 10/09/22 21:48 Last Admin: 09/26/22 01:44 Dose: 2 mg Ondansetron HCl (Ondansetron Inj 2 Mg/Ml 2 Ml Vial) 4 mg IV Q6H PRN PRN Reason: Nausea Stop: 10/25/22 21:49 Oxycodone HCl (Oxycodone Hcl Ir 5 Mg Tab (Immediate Release)) 5 mg PO Q6H PRN PRN Reason: moderate to severe pain Stop: 10/12/22 12:25 Last Admin: 09/28/22 21:24 Dose: 5 mg Polyethylene Glycol (Polyethylene (Miralax) 17 Gm Pack) 17 gm PO DAILY PRN PRN Reason: Constipation Stop: 10/25/22 21:49 Polyethylene Glycol (Polyethylene (Miralax) 17 Gm Pack) 17 gm PO DAILY [facility] Stop: 10/29/22 08:59 Last Admin: 10/01/22 07:49 Dose: 17 gm Rosuvastatin Calcium (Rosuvastatin Calcium 10 Mg Tab) 10 mg PO DAILY [facility] Stop: 10/26/22 08:59 Last Admin: 10/01/22 07:47 Dose: 10 mg (1) Closed hip fracture Encounter type: initial encounter Laterality: left Qualified Code(s): S72.002A - Fracture of unspecified part of neck of left femur, initial encounter for closed fracture
--- NOTE | 2022-10-01 11:10 | Discharge Summary ---
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 Patient slipped on ice on her stone patio, fell on left side, came in with acute left hip pain and difficulty ambulating. Patient denies any warmth/nausea/dizziness/lightheadedness/chest pain/palpitations/loss of consciousness/seizure-like activity surrounding the event. Patient denies any fever/chills/chest pain/palpitations/belly pain/acute changes in her bowel or bladder habit/sore throat. Patient reports occasional allergy cough. Patient is smokes cigars up to 5/day, has been smoking for more than 10 years. Patient drinks 1-2 drinks couple of times a week, denies use of recreational drug. 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 Per patient, she can easily walk 2-3 blocks or 2-3 flight of stairs without getting winded/short of breath/chest pain/lightheadedness. Medications were reviewed with the patient. Admission Exam Per Admitting Provider GENERAL: Alert and oriented x3. NAD, on RA. HEENT: No pallor, no icterus. Pupils equal, round and reactive to light. Oral mucosa moist. NECK: No JVD, no neck masses. HEART: S1 and S2 heard. Regular rate and rhythm. No murmur, no gallop. RESPIRATORY SYSTEM: Normal AP diameter. No accessory muscle use. No wheezing, no crackles. ABDOMEN: Soft, bowel sounds present, nontender, no distention. CENTRAL NERVOUS SYSTEM: No facial droop. Speech is clear. Obeys simple commands. Moves extremities. EXTREMITIES: No edema, no erythema seen. Left hip tender/ no bruise, decrease ROM Lt LE. Distal NV status wnl. UC w/ yellow urine collection noted in bag. Principal Diagnosis Fall Mildly displaced intertrochanteric fracture of left femur s/p surgical repair Acute blood loss anemia, postoperative Discharge Exam General- oriented x 3, not in distress, speaks in sentences with no effort or accessory muscle use Eyes- anicteric Neck- no JVD Lungs- clear breath sounds bilaterally, no rales/wheezes Heart- normal rate, regular rhythm; no murmurs Abdomen- normal bowel sounds, nondistended, soft, nontender Extremities- no pretibial edema, no calf tenderness L hip- (+) moderate edema (improved), +ecchymosis inner L thigh, dressing in place Neuro- alert, oriented x 3; no gross focal neurologic deficits Skin- warm & dry Discharge Data Allergies Allergy/AdvReac Type Severity Reaction Status Date / Time morphine AdvReac Intermediate Wayan Verified 09/25/22 19:00 "crazy" Consultations 09/25/22 19:37 Consult Orthopedic Surgery Routine 09/25/22 19:38 ED Decision to Admit Stat Procedures Performed Operation Date: 09/26/22 06:45 Actual Procedures p Intramedullary Herber Femur left(Left) - Antonio Jean DO Ordered Studies 09/26/22 07:00 FL hip LT 2-3V Routine 09/30/22 12:59 US venous doppler LE LT Routine FINDINGS: Currently there is normal compressibility of the deep venous system from the common femoral vein through the proximal calf veins. No superficial venous thr ombosis is identified. Impression: No evidence of deep venous thrombus. 09/30/22 13:00 US extremity non-vascular ltd Routine FINDINGS/IMPRESSION: There is soft tissue edema but no fluid collection in the area of bruising in the left medial thigh. Hospital Course (1) Closed hip fracture: Plan Fall Left hip pain Acute comminuted mildly displaced intertrochanteric fracture of left femur Acute blood loss anemia 09/26/2022: S/p Intramedullary Herber Femur left(Left) - Antonio Jean DO Hemoglobin ~8 (current 8.6) Blood loss likely secondary to surgery Asymptomatic, no signs of active bleeding Monitor, transfuse for hemoglobin below 7 Pain control, PT and OT evaluation: recommend acute rehab provide iron and B12 supplement Continue to monitor closely 1/ - left thigh continues to be quite edematous. Positive ecchymosis on inner thigh. Obtained ultrasound of left thigh including Doppler, no DVT, no hematoma. / -left thigh edema improved History of CAD No cardiac symptoms Continue metoprolol, losartan, aspirin, Plavix, Crestor Hypertension Blood pressure well controlled Continue above medications including amlodipine History of paroxysmal A. fib Currently in sinus rhythm Monitor on telemetry while inpt Peripheral artery disease Continue aspirin, Plavix, Crestor DVT prophylaxis - per surgery Aspirin 81 mg p.o. twice daily for 4 weeks Total Time Total Time Spent Total Time Spent (In Minutes): 40 Discharge Plan Discharge Items Patient Disposition: Transfer Inpatient Rehab Fac Reason For Visit: FALL/LEFT HIP PAIN Discharge Diagnosis: Fall Mildly displaced intertrochanteric fracture of left femur s/p surgical repair Acute blood loss anemia, postoperative Activity: Per Instructions section Weightbearing: Left weightbearing Weightbearing Comment: as tolerated with walker Non-emergency contact: Surgeon Call non-emergency contact if: you have any medication questions, your pain is not controlled, your temperature is above 101.5, your wound has increased redness and your wound has increased drainage Follow-up/Referrals: Diaz Khalil DO [Primary Care Provider] - Antonio Jean DO [Surgeon] - (Follow up with Dr. Jean in 2 weeks from the day of your surgery for your first post operative visit.) Diet: Heart Healthy Addtl Attending Provider Instructions: Follow-up with orthopedic surgeon, within 2 weeks after surgery. Read instructions from orthopedic surgeon below. For pain you can take Tylenol 1000 mg every 8 hours. For more severe pain, you can take oxycodone as needed as prescribed. 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 You are to ambulate with a walker or crutches for approximately 6 weeks. B. You are WEIGHT BEARING TOLERATED using a walker C. Wear low heeled shoes with non-slip soles D. Be sure that your floors are free of things that could trip you throw rugs, electrical cords, and small objects. Avoid wet and waxed floors, especially with crutches/walker/cane. E. Try to walk several times a day with rest periods between. F. You may shower 48 hours after surgery and get the incision area wet, but DO NOT soak or submerge incision area in water. (No baths, swimming pools, hot tubs) G. You may have a large, band-aid like dressing over your incision (Aquacel). This will remain on your incision for 7 days, and then can be removed. You CAN shower with this on. If incision is leaking through the dressing, please call the office . H. Do NOT apply soap or any ointment/lotions directly over incision. I. You may use ice as needed to operative site. SPECIAL CARE INSTRUCTIONS: VERY IMPORTANT TO READ AND REVIEW A. You may be at risk for phlebitis or blood clots. a. Wear surgical stockings (BROCK hose) for 2 weeks after surgery to improve circulation and reduce swelling. b. Take ASPIRIN 81 mg twice daily for 4 weeks or as directed. This is your blood thinner. B. There are a few signs you need to watch for after you are home. Call [facility] at [phone] if you experience any of the following: a. If you have a temperature of 101 degrees or higher. b. Sudden increase in pain in your hip not relieved by rest or pain medication. c. Any fluid or drainage from the incision; redness of the incision. d. Shortness of breath or chest pain. B. Please call [facility] at [phone] if you have any questions or concerns about your operation or recovery. C. Call your physician if: a. Temperature is greater than 101 degrees (F). b. Pain is not relieved by prescribed pain medications. c. Increase drainage or redness from incision. d. Unanswered questions or concerns. D. Pain Medication: a. You will be prescribed pain medication upon discharge that should last till your first post-operative appointment. b. If you experience nausea and/or skin rash, discontinue this medication and contact our office for an alternative medication. c. Caution- narcotic pain medication can cause constipation. FOLLOW UP VISIT: Please call [facility] at [phone] to schedule a follow up appointment 10-14 days from the date of your surgery date. Pending Studies at Discharge: No Stand-Alone Forms: [facility] [employer] Skilled Items Patient informed of condition?: Yes DNR: No Discharge Level of Care: Acute rehab Communicable Disease: No Discharge Prognosis: Stable Lines: None Urinary Catheter: No Medications and DC Order Prescriptions: New ferrous sulfate 325 mg (65 mg iron) Tablet,Delayed Release (Dr/Ec) 325 mg PO QAM Qty: 30 0RF aspirin 81 mg Tablet,Delayed Release (Dr/Ec) 81 mg PO BID 30 Days Qty: 60 0RF oxycodone 5 mg Tablet 5 mg PO Q6H PRN (Reason: pain) Qty: 3 0RF ergocalciferol (vitamin D2) 1,250 mcg (50,000 unit) Capsule 50,000 unit PO Q7D Qty: 3 0RF cyanocobalamin (vitamin B-12) 500 mcg Tablet 500 mcg PO QAM Qty: 10 0RF Continued metoprolol succinate 100 mg tablet extended release 24 hr 100 mg PO DAILY clopidogrel 75 mg tablet 75 mg PO DAILY amlodipine [Norvasc] 5 mg tablet 5 mg PO DAILY citalopram 20 mg tablet 20 mg PO DAILY lorazepam 0.5 mg tablet 0.5 mg PO HS nitroglycerin [Nitrostat] 0.4 mg Tablet, Sublingual 0.4 mg sublingual DIRECTED PRN (Reason: Chest Pain) Rx Instructions: PLACE ONE TABLET UNDER THE TONGUE EVERY 5 MINUTES FOR UP TO 3 DOSES OVER 15 MINUTES IF NEEDED FOR CHEST PAIN losartan [Cozaar] 100 mg tablet 100 mg PO DAILY rosuvastatin 10 mg tablet 10 mg PO DAILY Collagen/Vital Protein 1 dose PO DAILY Discharge Orders: Discharge Order (Routine); Ordered 10/01/22 Ordered By: Shoaib Valdes Admission Data Admit Date/Time: 09/25/22 19:37 Attending Provider: Shoaib Valdes Admit Provider: Merari Mccullough Primary Care Provider: Diaz Khalil Other Providers: Piotr Heaton ; Merari Mccullough ; [facility] ; [place],[facility] [place] ; Gonzales Carrasquillo [facility] ; [facility]
[2022-10-01] MEDS ORDERED: SENNA 8.6 MG TAB PO ONE (11:15)
== END 2022-10-01 15:45 | DRG 481 ==
LOC: ED 18:25 → SUATTDRO 19:37 → EDINP 19:37 → 2W 21:56